=== PATIENT | male | born 1940 | race Caucasian/White ===

== ENCOUNTER 2018-05-13 17:05 | Inpatient (IN) ==
[2018-05-14] MEDS ORDERED: cloNIDine HCl 0.1 MG TABLET PO PRN (18:03)
[2018-05-14] MEDS: Ipratropium/Albuterol Neb 3 ML IH PRN (18:54)
[2018-05-14] MEDS: Acetaminophen 325 MG TABLET PO PRN (20:43)
[2018-05-14] MEDS: Mag Hydrox/Al Hydrox/Simeth 30 ML UDC PO PRN (20:45)
[2018-05-15] MEDS: Ipratropium/Albuterol Neb 3 ML IH PRN ×4 (01:12→23:13)
[2018-05-15] MEDS: *HR* Enoxaparin 40 MG/0.4 ML SYRINGE SQ SCH (06:08)
[2018-05-15 06:24] LABS: Basophils % 0.5 %; Eosinophils # 0.1 K/mcL (0.0-0.6); Hemoglobin 10.9 g/dL (12.9-16.9); INR 1.3; Immature Granulocytes % 0.3 % (0-4); Lymphocytes # 0.4 K/mcL (0.6-4.6); Lymphocytes % 10.1 %; Mean Corpuscular HGB Conc 32.1 g/dL (31.6-35.5); Mean Corpuscular Volume 93.7 fL (83.0-100.0); Mean Platelet Volume 9.1 fL (9.4-12.4); Monocytes # 0.4 K/mcL (0.0-1.3); Monocytes % 10.3 %; Platelet Count 123 K/mcL (140-400); Prothrombin Time 14.6 Seconds (9.4-12.1); Red Blood Count 3.63 M/mcL (4.19-5.50); Red Cell Distribution Width 13.6 % (11.5-14.5); Segmented Neutrophils % 75.8 %
[2018-05-15 06:26] LABS: Activated Partial Thrombo Time 37.7 Seconds (26.0-36.0)
[2018-05-15 08:32] LABS: Alanine Aminotransferase 15 Units/L (7-52); Albumin 3.6 g/dL (3.5-5.7); Albumin/Globulin Ratio 1.3 (1.1-2.2); Alkaline Phosphatase 55 Units/L (34-104); Aspartate Amino Transferase 27 Units/L (13-39); BUN/Creatinine Ratio 13 (6-26); Bilirubin,Total 0.7 mg/dL (0.3-1.0); Blood Urea Nitrogen 14 mg/dL (8-23); Calcium 9.1 mg/dL (8.6-10.3); Carbon Dioxide 24 mEq/L (23-29); Chloride 106 mEq/L (98-107); Globulin 2.8 g/dL (2.4-3.5); Glucose 101 mg/dL (70-105); Magnesium 2.1 mg/dL (1.6-2.6); Osmolality,Calculated 293 (280-300); Potassium 4.3 mEq/L (3.5-5.1); Sodium 141 mEq/L (136-145); Total Protein 6.4 g/dL (6.4-8.9); eGFR For Non-African Americans > 60 (> 60)
[2018-05-15] MEDS: Umeclidinium Bromide [Incruse Ellipta] 1 PUFF IH SCH (08:37)
[2018-05-15] MEDS ORDERED: Albuterol 2.5 MG/3 ML NEBULIZER ONE (08:49)
[2018-05-15] MEDS ORDERED: Albuterol 2.5 MG/3 ML NEBULIZER IH STA (08:56)
[2018-05-15] MEDS ORDERED: Albuterol 2.5 MG/3 ML NEBULIZER IH ONE (08:58)
[2018-05-15] MEDS: Acetaminophen 325 MG TABLET PO PRN (09:05)
[2018-05-15] MEDS: Metoprolol XL (24 HR) Succ 50 MG TAB.ER.24H PO SCH (09:06)
[2018-05-15] MEDS: Lisinopril 20 MG TABLET PO SCH (09:06)
[2018-05-15] MEDS: Aspirin Enteric Coated 325 MG Tablet PO SCH (09:06)
[2018-05-15] MEDS: Furosemide 40 MG TABLET PO SCH (09:06)
[2018-05-15] MEDS ORDERED: Furosemide 40 MG/4 ML VIAL IVP STA (09:47)
--- NOTE | 2018-05-15 12:07 | Internal Med History&Physical ---
Addendum entered and electronically signed by Kameron Ceja MD 05/15/18 13:40: I have personally performed a face to face evaluation on this patient. I have r eviewed and agree with the care plan. History and Exam by me shows: Reviewed history and physical with patient. Upon my arrival this morning, the patient sounded "junky" and sounded like he had heart failure. Laboratory evaluation and otherwise revealed that he has mild heart failure. He was given a dose of IV Lasix and is improved slightly as the day goes on. Physical therapy was held this morning and we will see if he is strong enough to go through some assessments, this afternoon. Patient has no complaint of chest discomfort, dyspnea, orthopnea, palpitations, nausea or vomiting, constipation or diarrhea, other changes in bowel habits, difficulty with urination, rash or itching, or other new complaints, except as mentioned above. Review of systems is otherwise negative. I discussed management of her care with nursing staff. Examination: (Except as mentioned above): General: In no apparent distress, alert and oriented 3. Head: Atraumatic and normocephalic. Eyes: Extraocular muscles are intact, pupils equal round and reactive to light and accommodation. Sclerae anicteric. Ears: External ears are normal to inspection and hearing is grossly normal. Nose: Patent without lesion noted. Mouth: No intraoral lesions seen. He is edentulous. Neck: Supple with trachea midline. There is asymmetric right thyromegaly or adenopathy and carotids are 2+ without bruit heard. I suspect a thyroid nodule about 2 x 3 cm. Respiratory: No use of accessory muscles. Lungs are surprisingly clear with mostly upper airway sounds but a few rales. Normal airflow. Cardiovascular: Regular rate and rhythm without murmur appreciated. Abdomen: Bowel sounds are normal. No hepatosplenomegaly masses or tenderness. Obese and therefore difficult to palpate deeply. Extremities: No cyanosis clubbing or edema. Neurological: A and O 3. He has mild hemiparesis with some speech difficulty which is minimal. Skin: Warm and non-diaphoretic with no lesions noted. Breasts, pelvic and rectal: Not examined. Original Note: Date of Encounter: 05/15/18 Time of Encounter: 11:47 Assessment and Plan (1) CVA (cerebral vascular accident) Current visit: Yes Status: Acute Status post left MCA infarct. PT, OT and ST to eval and treat. Will follow progress. No new neurological deficits at this time. Will assist with ADLs as needed. Qualifiers: CVA mechanism: thrombosis Precerebral and cerebral artery: middle cerebral artery Laterality of affected vessel: left Qualified Code(s): I63.312 - Cerebral infarction due to thrombosis of left middle cerebral artery (2) CHF (congestive heart failure) Current visit: Yes Status: Chronic BNP 384. IV Lasix times 1 dose now ordered will monitor for improvement. Qualifiers: Heart failure type: unspecified Heart failure chronicity: acute on chronic Qualified Code(s): I50.9 - Heart failure, unspecified (3) Essential hypertension Current visit: Yes Status: Acute Controlled with current medication. Monitor blood pressure. Internal Medicine - H&P: HPI Admitted From: Hospital to Hospital Transfer Plans for Post Hospital Care: Home History of present illness: Mr. Hoover is a 77 year old male new admit to rehab from [facility]. on 05/09, pt presented to ER after falling on the floor and having right sided weakness. In slurred speech. He was found to have had a Left MCA infarct. past medical hx includes: CAD, CHF status post pacemaker, COPD, hypertension and hyperlipidemia. pt has nonprod cough, denies fever, chills, NVD, SOB or chest pain. had a MBS and showed a mild oropharyngeal dysphagia. Past Med Surg Social Fam HX - Past Medical History Medical history: arthritis, atrial fibrillation, CHF, COPD, coronary artery disease, CVA, GERD, hyperlipidemia, hypertension, liver disease, myocardial infarction Additional medical history: Stroke-March 2018 Psychiatric history: no psych history - Past Surgical History Surgical History: orthopedic, other, pacemaker/AICD Additional surgical history: eye, egds,left arm - Social History Smoking Status: Former smoker Smokeless Tobacco Status: No Alcohol use: none Drug use: none Internal Medicine - H&P: Meds Aspirin Enteric Coated [Aspirin EC] 325 mg PO DAILY 09/26/16 [History] Atorvastatin [Lipitor] 10 mg PO HS 09/26/16 [History] Furosemide [Lasix] 60 mg PO DAILY 09/26/16 [History] Ipratropium/Albuterol Neb [Duoneb] 3 ml IH Q6HR PRN 09/26/16 [History] Potassium Chloride [Klor-Con Sprinkle] 20 meq PO DAILY 09/26/16 [History] Esomeprazole Magnesium [Nexium] 40 mg PO DAILY 12/11/16 [History] Lisinopril [Zestril] 40 mg PO DAILY 12/11/16 [History] Metoprolol XL (24 HR) Succ [Toprol XL] 50 mg PO DAILY 12/11/16 [History] Umeclidinium Bush [Incruse Ellipta] 1 puff IH DAILY 12/11/16 [History] Montelukast [Singulair] 10 mg PO DAILY 05/14/18 [History] Allergy/AdvReac Type Severity Reaction Status Date / Time cephalexin [From Keflex] Allergy Difficulty Verified 08/12/17 20:28 Breathing All Systems PM: A 10-system review of systems was performed and is negative for pertinent fi ndings except as documented above in the HPI. - Constitutional Constitutional: no chills, no fever(s), no night sweats - EENT Eyes: no change in vision, no discharge, no pain, no photophobia Ears: no ear discharge, no ear pain, no tinnitus Nose, mouth and throat: no dysphagia, no nasal discharge, no neck pain, no sore throat - Cardiovascular Cardiovascular ROS IM: no chest pain, no diaphoresis, no dyspnea, no lightheadedness, no palpitations, no syncope - Respiratory Respiratory: no cough, no dyspnea, no wheezing, no excessive phlegm production - Gastrointestinal Gastrointestinal: no abdominal pain, no diarrhea, no hematemesis, no hematochezia, no melena, no nausea, no vomiting - Musculoskeletal Musculoskeletal ROS IM: no numbness, no tingling - Integumentary Integumentary IM: no rash, no unusual bruising - Neurological Neurological ROS: no confusion, no convulsions, no focal weakness, no numbness, no tingling, no tremor(s) - Hematologic/Lymphatic Hematologic/Lymphatic: no easy bruising - Constitutional Vitals: Temp Pulse Resp BP Pulse Ox 99.0 F 69 14 126/68 4 05/15/18 08:00 05/15/18 08:00 05/15/18 08:00 05/15/18 08:00 05/15/18 08:00 General appearance: Present: A&O X 3, pleasant, no acute distress, answers questions appropriately Exam: slight dysarthria - Head Head exam: Present: atraumatic, normocephalic - Eye Eye exam: Present: PERRL, conjuntiva pink, sclera anicteric Pupils: Present: PERRL - Neck Neck exam general surgery: Present: supple, trachea midline. Absent: lymphadenopathy - Respiratory Respiratory exam: Present: rhonchi. Absent: accessory muscle use, rales, wheezes Additional comments: Rhonchi bilateral upper lobes - Cardiovascular Cardiovascular exam: Present: RRR, +S1, +S2. Absent: diastolic murmur, gallop, rubs, systolic murmur - GI/Abdominal GI/Abdominal exam: Present: normal bowel sounds, soft, no peritoneal signs. Absent: distended, tenderness - Extremities Exam Extremities exam: Present: warm, radial pulses palpable and symmetrical. Absent: calf tenderness, cyanotic, pedal edema Additional comments: Strength right upper extremity 4\\5 right lower extremity 3\\5 - Neurological Exam Neurological exam: Present: CN II-XII intact, oriented X3, no focal deficits. Absent: pronater drift, facial droop, speech deficit - Skin Skin exam: Present: dry, intact Internal Med - H&P Results - Labs CBC & Chem 7: 05/15/18 06:00 05/15/18 06:00 Labs: Short CBC 05/15/18 Range/Units 06:00 WBC 4.0 L (4.3-11.1) K/mcL Hgb 10.9 L D (12.9-16.9) g/dL Hct 34.0 L (37.5-50.1) % Plt Count 123 L (140-400) K/mcL Neutrophils # 3.0 (1.6-8.9) K/mcL BMP 05/15/18 06:00 Sodium 141 Potassium 4.3 Chloride 106 Carbon Dioxide 24 BUN 14 Creatinine 1.08 Glucose 101 Calcium 9.1 Liver Function 05/15/18 Range/Units 06:00 Total Bilirubin 0.7 (0.3-1.0) mg/dL AST 27 (13-39) Units/L ALT 15 (7-52) Units/L Alkaline Phosphatase 55 (34-104) Units/L Albumin 3.6 (3.5-5.7) g/dL - Impressions ITS Impressions Chest X-Ray 05/15/18 08:44 IMPRESSION: 1. Cardiomegaly with vascular congestion. 2. Increase in the interstitial lung markings involving the right lung. This may represent asymmetric edema or chronic inflammation. D/ / Van Montgomery MD / Van Montgomery MD Interpreting Provider: Van Montgomery MD
--- NOTE | 2018-05-15 12:53 | Electrocardiograph Report ---
[address] [place], [place] [address] Test Date: 2018-05-14 Pat Name: Kameron Hoover Department: 2001 Room: 105 Gender: M Embroiderer: Priyanka : 1940 Requested By: Kameron Ceja Order Number: [id number] Reading MD: Bradford Rush Measurements Intervals Solomon Rate: 69 P: CA: 0 QRS: 260 QRSD: 154 T: 67 QT: 449 QTc: 469 Interpretive Statements [employer]LECTRON[employer]EN[employer]IC[employer]EMAKER Electronically Signed On 05-15-2018 12:51:58 EST by Bradford Rush
[2018-05-15] MEDS: Albuterol 2.5 MG/3 ML NEBULIZER IH PRN (16:27)
[2018-05-15] MEDS: methylPREDNISolone 125 MG/2 ML VIAL IVP SCH ×2 (16:51→23:13)
[2018-05-16] MEDS: *HR* Enoxaparin 40 MG/0.4 ML SYRINGE SQ SCH (06:08)
[2018-05-16] MEDS: Ipratropium/Albuterol Neb 3 ML IH PRN ×4 (06:34→23:20)
[2018-05-16] MEDS: methylPREDNISolone 125 MG/2 ML VIAL IVP SCH ×3 (07:49→23:20)
[2018-05-16] MEDS: Lisinopril 20 MG TABLET PO SCH (07:50)
[2018-05-16] MEDS: Albuterol 2.5 MG/3 ML NEBULIZER IH PRN ×2 (07:50→18:45)
[2018-05-16] MEDS: Aspirin Enteric Coated 325 MG Tablet PO SCH (07:50)
[2018-05-16] MEDS: Metoprolol XL (24 HR) Succ 50 MG TAB.ER.24H PO SCH (07:50)
[2018-05-16] MEDS: Acetaminophen 325 MG TABLET PO PRN ×2 (07:50→23:19)
[2018-05-16] MEDS: Furosemide 40 MG TABLET PO SCH (07:51)
[2018-05-16] MEDS: Umeclidinium Bromide [Incruse Ellipta] 1 PUFF IH SCH (07:51)
--- NOTE | 2018-05-16 10:23 | Internal Med Progress Note ---
Addendum entered and electronically signed by Kameron Ceja MD 05/16/18 10:33: I have personally performed a face to face evaluation on this patient. I have r eviewed and agree with the care plan. History and Exam by me shows: Patient is feeling much better. He is anxious to begin therapies. He states that his breathing is back to its baseline. He denies abdominal pain but nursing notes that his right flank was bothering him, multiple times overnight. Discussed care with other providers and/or nursing. Patient has no complaint of chest discomfort, dyspnea, orthopnea, palpitations, nausea or vomiting, constipation or diarrhea, other changes in bowel habits, difficulty with urination, rash or itching, or other new complaints, except as mentioned above. Review of systems is otherwise negative. Examination: (Except as mentioned above): General: In no apparent distress. Alert and oriented 3. Nondiaphoretic. Head: Atraumatic and normocephalic. It should be noted that he has right eye exotropia and what seems to be mild exophthalmos, as per baseline but this was not reported in my history and physical addendum, yesterday. Respiratory: No use of accessory muscles. Lungs have diffuse sonorous rhonchi but no rales and no upper airway sounds, as yesterday. Airflow seems good. Cardiovascular: Regular rate and rhythm without murmur appreciated. Abdomen: Bowel sounds are normal. No hepatosplenomegaly mass or tenderness appreciated. Obese and therefore difficult to palpate deeply. Extremities: No cyanosis clubbing or edema. Skin: Warm and non-diaphoretic with no new lesions noted. The patient began steroids, last night. He notes that his primary care provider had him on 20 of prednisone, daily. We will give him stress dose until this evening and then switch him to oral prednisone for several days of burst therapy followed by a baseline of steroids. Also, we will monitor him for heart failure. Splint, I am not sure whether it was the steroid or his IV Lasix yesterday which helped him more. Original Note: Date of Encounter: 05/16/18 Time of Encounter: 10:21 - Assessment and plan (1) CVA (cerebral vascular accident) Current Visit: Yes Status: Acute Assessment and plan: No acute issues. Patient continues with slight right hemiparesis. Patient has had improvement of his risk for status and will attempt to persist pain in physical therapy today. We will continue with current plan of care Qualifiers: CVA mechanism: thrombosis Precerebral and cerebral artery: middle cerebral artery Laterality of affected vessel: left Qualified Code(s): I63.312 - Cerebral infarction due to thrombosis of left middle cerebral artery (2) CHF (congestive heart failure) Current Visit: Yes Status: Chronic Assessment and plan: No acute issues. Patient's pulmonary status has improved greatly since starting on cortical steroids and being diuresed with Lasix. Patient continues to have diminished breath sounds to bases with a slight expiratory wheeze her to upper ramirez. Patient denies any chest discomforts or palpitations. We will continue with current plan of care Qualifiers: Heart failure type: unspecified Heart failure chronicity: acute on chronic Qualified Code(s): I50.9 - Heart failure, unspecified (3) Essential hypertension Current Visit: Yes Status: Acute Assessment and plan: Vital signs are stable. We will continue with current medications. - Time Spent With Patient less than 15 minutes - Subjective Interval history: Patient appears relaxed and states that today his breathing status has improved. Patient reportedly had expiratory wheezes and pulmonary congestion yesterday. Was treated with cortical steroids and Lasix and today his lungs are much improved. Patient states that he feels he may be able to dissipate and physical therapy. Denies any other discomforts. Denies any chest palpitations - Constitutional Vitals: Temp Pulse Resp BP Pulse Ox 98.4 F 69 18 144/79 100 05/16/18 06:54 05/16/18 06:54 05/16/18 06:54 05/16/18 06:54 05/16/18 06:54 General appearance: Present: A&O X 3, pleasant, no acute distress, answers questions appropriately - Head Head exam: Present: atraumatic, normocephalic - Eye Eye exam: Present: PERRL, conjuntiva pink, sclera anicteric Pupils: Present: PERRL Additional comments: Disconjugate - Neck Neck exam general surgery: Present: supple, trachea midline. Absent: lymphadenopathy - Respiratory Respiratory exam: Present: CTAB, wheezes. Absent: accessory muscle use, rales, rhonchi Additional comments: Patient with slight expiratory wheeze heard to upper ramirez and diminished basilar ramirez. Respiratory effort appears relaxed. No productive cough noted. - Cardiovascular Cardiovascular exam: Present: RRR, +S1, +S2. Absent: diastolic murmur, gallop, rubs, systolic murmur - GI/Abdominal GI/Abdominal exam: Present: normal bowel sounds, soft, no peritoneal signs. Absent: distended, tenderness - Extremities Exam Extremities exam: Present: warm, radial pulses palpable and symmetrical. Absent: calf tenderness, cyanotic, pedal edema Additional comments: Slight pedal edema. Noted bilateral vascular Esparza - Neurological Exam Neurological exam: Present: CN II-XII intact, oriented X3. Absent: pronater drift, facial droop, speech deficit Additional comments: Patient with the conjugant gaze. Slight right hemiparesis with right extremities 4+/5 and left extremities at 5/5. - Skin Skin exam: Present: dry, intact Internal Medicine: Result - Labs CBC & Chem 7: 05/15/18 06:00 05/15/18 06:00 - ABG Interpretation ABG results: PT/INR, D-dimer PT 14.6 Seconds (9.4-12.1) H 05/15/18 06:00 Consult Discharge Plan - Plan Referrals: Kamla Garcia, HEALTH AND SAFETY DIRECTOR [Primary Care Provider] -
[2018-05-16 16:28] LABS: Bilirubin,Urine Negative (Negative); Blood,Urine Negative (Negative); Clarity,Urine Clear (Clear); Color,Urine Yellow (Yellow); Glucose,Urine (UA) Normal (Normal); Ketones,Urine Negative (Negative); Leukocyte Esterase,Urine Negative (Negative); Nitrite,Urine Negative (Negative); Protein,Urine Negative (Neg-Trace); Urobilinogen,Urine Normal (Normal)
[2018-05-17] MEDS: Ipratropium/Albuterol Neb 3 ML IH PRN ×3 (05:51→18:41)
[2018-05-17] MEDS: *HR* Enoxaparin 40 MG/0.4 ML SYRINGE SQ SCH (05:51)
[2018-05-17] MEDS: Albuterol 2.5 MG/3 ML NEBULIZER IH PRN (09:34)
[2018-05-17] MEDS: methylPREDNISolone 125 MG/2 ML VIAL IVP SCH (09:35)
[2018-05-17] MEDS: Lisinopril 20 MG TABLET PO SCH (09:35)
[2018-05-17] MEDS: predniSONE 20 MG TABLET PO SCH (09:36)
[2018-05-17] MEDS: Umeclidinium Bromide [Incruse Ellipta] 1 PUFF IH SCH (09:36)
[2018-05-17] MEDS: Aspirin Enteric Coated 325 MG Tablet PO SCH (09:36)
[2018-05-17] MEDS: Metoprolol XL (24 HR) Succ 50 MG TAB.ER.24H PO SCH (09:36)
[2018-05-17] MEDS: Furosemide 40 MG TABLET PO SCH (09:36)
--- NOTE | 2018-05-17 10:36 | Internal Med Progress Note ---
Addendum entered and electronically signed by Kameron Ceja MD 05/17/18 12:36: I have personally performed a face to face evaluation on this patient. I have r eviewed and agree with the care plan. History and Exam by me shows: Patient is feeling well. He denies dyspnea during therapy. However therapy and nursing staff know that he was markedly dyspneic with therapy? He has not moved his bowels. Feels like he will go today. I encouraged use of laxative if he does not move by this afternoon. Discussed care with other providers and/or nursing. Patient has no complaint of chest discomfort, dyspnea, orthopnea, palpitations, nausea or vomiting, constipation or diarrhea, other changes in bowel habits, difficulty with urination, rash or itching, or other new complaints, except as mentioned above. Review of systems is otherwise negative. Examination: (Except as mentioned above): General: In no apparent distress. Alert and oriented 3. Nondiaphoretic. Head: Atraumatic and normocephalic. Respiratory: No use of accessory muscles. Lungs are clear throughout except occasional sonorous rhonchi. Much improved over the last couple of days. Airflow is improving, as well. Cardiovascular: Regular rate and rhythm without murmur appreciated. Abdomen: Bowel sounds are normal. No hepatosplenomegaly mass or tenderness appreciated. Obese and therefore difficult to palpate deeply. Patient is examined upright in chair and this also limits exam. Extremities: No cyanosis clubbing or edema. Skin: Warm and non-diaphoretic with no new lesions noted. Original Note: Date of Encounter: 05/17/18 Time of Encounter: 10:34 - Assessment and plan (1) CVA (cerebral vascular accident) Current Visit: Yes Status: Inactive Assessment and plan: No acute issues. Patient continues with slight right hemiparesis. Patient has had improvement of his risk for status and will attempt to persist pain in physical therapy today. We will continue with current plan of care Qualifiers: CVA mechanism: thrombosis Precerebral and cerebral artery: middle cerebral artery Laterality of affected vessel: left Qualified Code(s): I63.312 - Cerebral infarction due to thrombosis of left middle cerebral artery (2) CHF (congestive heart failure) Current Visit: Yes Status: Chronic Assessment and plan: Patient noted to become very dyspneic during a assisted showering. Patient became very short of breath at 28/m with audible wheezes heard. After r ecovering patient appeared more relaxed with respiratory rate at 22/m. Continues to have slight expiratory wheeze her to upper ramirez and diminished bases. Denies productive cough. We will continue with current plan of care and therapy. Qualifiers: Heart failure type: unspecified Heart failure chronicity: acute on chronic Qualified Code(s): I50.9 - Heart failure, unspecified (3) Essential hypertension Current Visit: Yes Status: Acute Assessment and plan: Vital signs are stable. We will continue with current medications. - Time Spent With Patient less than 15 minutes - Subjective Interval history: Patient was evaluated after having a shower this morning and was noticeably short of breath. Patient states that he continues to have poor endurance and became very winded by the end of shower. Patient's oxygen saturation had dropped to the mid 80s, after being placed on oxygen he slowly recovered to greater than 90%. Patient's respiratory effort appeared slightly labile at 28/m and noted to have wheezes throughout upper ramirez. Patient denies any other chest discomforts or palpitations. Patient did complain of abdominal cramping last evening. Patient states he has not had a BM since his admission to this facility. - Constitutional Vitals: Temp Pulse Resp BP Pulse Ox 98.8 F 69 17 144/78 96 05/17/18 07:00 05/17/18 07:00 05/17/18 07:00 05/17/18 07:00 05/17/18 07:00 General appearance: Present: A&O X 3, pleasant, no acute distress, answers questions appropriately - Head Head exam: Present: atraumatic, normocephalic - Eye Eye exam: Present: PERRL, conjuntiva pink, sclera anicteric Pupils: Present: PERRL Additional comments: Disconjugate - Neck Neck exam general surgery: Present: supple, trachea midline. Absent: lymphadenopathy - Respiratory Respiratory exam: Present: CTAB, wheezes. Absent: accessory muscle use, rales, rhonchi Additional comments: After exertion patient noted to have audible wheezes throughout upper ramirez with a respiratory rate of 28. After resting and recovering patient continues to have slight expiratory wheeze for 2 upper ramirez and diminished bases. Respiratory effort appears more relaxed at 22/m. Patient denies productive cough. - Cardiovascular Cardiovascular exam: Present: RRR, +S1, +S2. Absent: diastolic murmur, gallop, rubs, systolic murmur - GI/Abdominal GI/Abdominal exam: Present: normal bowel sounds, soft, no peritoneal signs. Absent: distended, tenderness - Extremities Exam Extremities exam: Present: pedal edema, warm, radial pulses palpable and symmetrical. Absent: calf tenderness, cyanotic Additional comments: Slight edema to bilateral lower legs and feet. Noted bilateral leg vascular Esparza - Neurological Exam Neurological exam: Present: CN II-XII intact, oriented X3, no focal deficits. Absent: pronater drift, facial droop, speech deficit - Skin Skin exam: Present: dry, intact Internal Medicine: Result - Labs CBC & Chem 7: 05/15/18 06:00 05/15/18 06:00 Labs: Urine 05/16/18 Range/Units 16:15 Urine Color Yellow (Yellow) Urine Clarity Clear (Clear) Urine pH 6.0 (5.0-8.0) pH Units Ur Specific Haddock 1.020 (1.010-1.025) Urine Protein Negative (Neg-Trace) mg/dL Urine Glucose (UA) Normal (Normal) mg/dL - ABG Interpretation ABG results: PT/INR, D-dimer PT 14.6 Seconds (9.4-12.1) H 05/15/18 06:00 Consult Discharge Plan - Plan Referrals: Kamla Garcia CNP [Primary Care Provider] -
[2018-05-17] MEDS: Acetaminophen 325 MG TABLET PO PRN (21:18)
[2018-05-18] MEDS: Acetaminophen 325 MG TABLET PO PRN ×2 (03:28→11:52)
[2018-05-18] MEDS: *HR* Enoxaparin 40 MG/0.4 ML SYRINGE SQ SCH (05:31)
[2018-05-18] MEDS: Lisinopril 20 MG TABLET PO SCH (07:45)
[2018-05-18] MEDS: Metoprolol XL (24 HR) Succ 50 MG TAB.ER.24H PO SCH (07:45)
[2018-05-18] MEDS: predniSONE 20 MG TABLET PO SCH (07:45)
[2018-05-18] MEDS: Furosemide 40 MG TABLET PO SCH (07:45)
[2018-05-18] MEDS: Aspirin Enteric Coated 325 MG Tablet PO SCH (07:46)
[2018-05-18] MEDS: Umeclidinium Bromide [Incruse Ellipta] 1 PUFF IH SCH (07:46)
[2018-05-18] MEDS: Ipratropium/Albuterol Neb 3 ML IH PRN ×2 (08:26→15:15)
--- NOTE | 2018-05-18 11:10 | Internal Med Progress Note ---
Date of Encounter: 05/18/18 Time of Encounter: 11:30 - Subjective Interval history: - Assessment and plan (1) CVA (cerebral vascular accident) Current Visit: Yes Status: Inactive Assessment and plan: No acute issues. Patient continues with slight right hemiparesis. He has still some mild garble speech and he has difficulty occas with secretions. Patient has been doing PT. We will continue with current plan of care Qualifiers: CVA mechanism: thrombosis Precerebral and cerebral artery: middle cerebral artery Laterality of affected vessel: left Qualified Code(s): I63.312 - Cerebral infarction due to thrombosis of left middle cerebral artery (2) CHF (congestive heart failure) Current Visit: Yes Status: Chronic Assessment and plan: Patient noted to become very dyspneic during activities since came here. cough somewhat more productive. Will get lasix today. Will do daily wt and I/O check electrolytes he has hx CAD and pacemaker. He has ekg here from May 14. . We will continue with current plan of care and therapy. Qualifiers: Heart failure type: unspecified Heart failure chronicity: acute on chronic Qualified Code(s): I50.9 - Heart failure, unspecified (3) Essential hypertension Current Visit: Yes Status: Acute Assessment and plan: Vital signs are stable. BP systolic low at times pulse 60s to 70s will decrease lisinopril from 40 to 20 mg for now. continue metoprolol. he has prn clonidine We will continue with current medications. 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 He likely has element of pulmonary fibrosis. will get chest xray will continue duonebs will give prednisone oral - will need to taper as soon as able he is on 2 to 4 L NC oxygen will try BiPap for symptom relief or sleep discussed with respiratory (5) poor po intake risk for low albumen poor appetite will add megace he is at risk for malnutrition with sob and decreased appetite (6) anxiety panic attacks pt reports he has had these, priti at night chronic but worse now (7 ) constipation pt has no bm in 7 days he says he wants enema will place order will dc bentyl - Time Spent With Patient less than 15 minutes - Subjective Interval history: patient reports for over a week he has had a 'rattle and cough' Patient did complain of abdominal cramping last evening. Patient states he has not had a BM since his admission to this facility. he would like an enema he was anxious all day he says - Constitutional Vitals: Temp Pulse Resp BP Pulse Ox 98.8 F 69 17 144/78 96 05/17/18 07:00 05/17/18 07:00 05/17/18 07:00 05/17/18 07:00 05/17/18 07:00 General appearance: Present: A&O X 3, pleasant, no acute distress, answers questions appropriately - Eye Additional comments: Disconjugate gaze - chronic - Neck Neck exam general surgery: Present: supple, trachea midline. Absent: lymphadenopathy - Respiratory Respiratory exam: Present: CTAB, wheezes. Absent: accessory muscle use, rales, rhonchi Additional comments: velcro crackles bilateral - Cardiovascular Cardiovascular exam: Present: RRR, +S1, +S2. distant tones - GI/Abdominal GI/Abdominal exam: Present: normal bowel sounds, soft, no peritoneal signs. Absent: distended, tenderness - Extremities Exam Extremities exam: Present: pedal edema, warm, radial pulses palpable and symmetrical. Additional comments: Slight edema to bilateral lower legs and feet. - Neurological Exam Neurological exam: Present: CN II-XII intact, oriented X3, no focal deficits. Absent: pronater drift, facial droop, speech deficit - Skin Skin exam: Present: thin dry skin excoriations ankles and scale and erythema some lichinification - Constitutional Vitals: Temp Pulse Resp BP Pulse Ox 97.7 F 70 16 118/74 99 05/18/18 09:07 05/18/18 09:07 05/18/18 09:07 05/18/18 09:07 05/18/18 09:07 General appearance: Present: A&O X 3, pleasant, no acute distress, answers questions appropriately Internal Medicine: Result - Labs CBC & Chem 7: 05/19/18 08:05 05/19/18 08:05 - ABG Interpretation ABG results: PT/INR, D-dimer PT 14.6 Seconds (9.4-12.1) H 05/15/18 06:00 Consult Discharge Plan - Plan Referrals: Kamla Garcia CNP [Primary Care Provider] -
[2018-05-18] MEDS: Albuterol 2.5 MG/3 ML NEBULIZER IH PRN ×2 (11:53→20:51)
[2018-05-18] MEDS ORDERED: Furosemide 20 MG/2 ML VIAL IVP ONE ×2 (15:47→23:26)
[2018-05-18] MEDS: Ipratropium/Albuterol Neb 3 ML IH SCH (18:10)
[2018-05-19] MEDS: Albuterol 2.5 MG/3 ML NEBULIZER IH PRN ×2 (00:31→06:10)
[2018-05-19] MEDS: Ipratropium/Albuterol Neb 3 ML IH SCH ×3 (02:47→16:57)
[2018-05-19] MEDS ORDERED: Furosemide 20 MG/2 ML VIAL IVP ONE (03:21)
[2018-05-19] MEDS: *HR* Enoxaparin 40 MG/0.4 ML SYRINGE SQ SCH (05:58)
[2018-05-19] MEDS ORDERED: methylPREDNISolone 125 MG/2 ML VIAL IVP ONE (06:19)
[2018-05-19 08:25] LABS: Hematocrit 31.9 % (37.5-50.1); Hemoglobin 10.4 g/dL (12.9-16.9); Immature Granulocytes % 0.4 % (0-4); Lymphocytes # 0.3 K/mcL (0.6-4.6); Lymphocytes % 4.9 %; Mean Corpuscular HGB Conc 32.6 g/dL (31.6-35.5); Mean Corpuscular Hemoglobin 30.1 pg (28.0-33.3); Mean Corpuscular Volume 92.5 fL (83.0-100.0); Mean Platelet Volume 9.3 fL (9.4-12.4); Monocytes # 0.4 K/mcL (0.0-1.3); Monocytes % 6.3 %; Neutrophils # 4.9 K/mcL (1.6-8.9); Platelet Count 158 K/mcL (140-400); Red Blood Count 3.45 M/mcL (4.19-5.50); Red Cell Distribution Width 13.9 % (11.5-14.5); Segmented Neutrophils % 88.4 %
[2018-05-19 08:36] LABS: Calcium 8.7 mg/dL (8.6-10.3); Potassium 3.5 mEq/L (3.5-5.1)
[2018-05-19 08:41] LABS: ABG Base Excess 3 mEq/L (-2 to 3); ABG HCO3 28 mEq/L (21-27); ABG Oxygen Saturation 94 % (95-98); ABG PCO2 43 mmHg (35-45); ABG PH 7.42 pH Units (7.32-7.45); ABG PO2 71 mmHg (85-104); ABG TCO2 29 mEq/L (20-26)
[2018-05-19] MEDS: Furosemide 40 MG TABLET PO SCH (09:06)
[2018-05-19] MEDS: Aspirin Enteric Coated 325 MG Tablet PO SCH (09:06)
[2018-05-19] MEDS: Umeclidinium Bromide [Incruse Ellipta] 1 PUFF IH SCH (09:07)
[2018-05-19] MEDS: predniSONE 20 MG TABLET PO SCH (09:07)
[2018-05-19] MEDS: Lisinopril 20 MG TABLET PO SCH (09:07)
[2018-05-19] MEDS: Metoprolol XL (24 HR) Succ 50 MG TAB.ER.24H PO SCH (09:07)
[2018-05-19 10:02] LABS: Bilirubin,Urine Negative (Negative); Blood,Urine Negative (Negative); Clarity,Urine Clear (Clear); Color,Urine Yellow (Yellow); Glucose,Urine (UA) Normal (Normal); Ketones,Urine Negative (Negative); Leukocyte Esterase,Urine Negative (Negative); Nitrite,Urine Negative (Negative); Protein,Urine Negative (Neg-Trace); Specific Gravity,Urine 1.015 (1.010-1.025); Urobilinogen,Urine Normal (Normal)
[2018-05-19] MEDS ORDERED: Glycopyrrolate 1 MG TABLET PO ONE (11:09)
[2018-05-19] MEDS ORDERED: Nitroglycerin 0.4 MG TAB.SUBL SL PRN (12:24)
[2018-05-19] MEDS: Hyoscyamine SL 0.125 MG TAB.SUBL SL PRN ×2 (12:43→20:57)
[2018-05-19] MEDS: levoFLOXacin 500 MG TABLET PO SCH (12:43)
[2018-05-19] MEDS: Nystatin SUSP 5 ML UD.LIQ PO SCH ×4 (12:43→20:51)
--- NOTE | 2018-05-19 13:12 | Internal Med Progress Note ---
Date of Encounter: 05/19/18 Time of Encounter: 13:15 - Subjective Interval history: - Assessment and plan (1) CVA (cerebral vascular accident) Current Visit: Yes Status: Inactive Assessment and plan: No acute issues. Patient continues with slight right hemiparesis. He has still some mild garble speech and he has difficulty occas with secretions. Patient has been doing PT. We will continue with current plan of care Qualifiers: CVA mechanism: thrombosis Precerebral and cerebral artery: middle cerebral artery Laterality of affected vessel: left Qualified Code(s): I63.312 - Cerebral infarction due to thrombosis of left middle cerebral artery (2) CHF (congestive heart failure) Current Visit: Yes Status: Chronic Assessment and plan: Patient noted to become very dyspneic during activities since came here. cough somewhat more productive. Will get lasix today. Will do daily wt and I/O check electrolytes he has hx CAD and pacemaker. He has ekg here from May 14. . We will continue with current plan of care and therapy. Qualifiers: Heart failure type: unspecified Heart failure chronicity: acute on chronic Qualified Code(s): I50.9 - Heart failure, unspecified (3) Essential hypertension Current Visit: Yes Status: Acute Assessment and plan: Vital signs are stable. BP systolic low at times pulse 60s to 70s will decrease lisinopril from 40 to 20 mg for now. continue metoprolol. he has prn clonidine We will continue with current medications. 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 He likely has element of pulmonary fibrosis. no change to chest xray sputum discolored and dark will add oral Cefdiner will continue duonebs will give prednisone oral - will need to taper as soon as able he is on 2 to 4 L NC oxygen will try BiPap for symptom relief or sleep discussed with respiratory (5) poor po intake risk for low albumen poor appetite will add megace seemed to have trouble with meats will change to [facility] alter diet and add ensure he is at risk for malnutrition with sob and decreased appetite has oral thrush will add nystatin this may help appetite (6) anxiety panic attacks pt reports he has had these, priti at night chronic but worse now says he feels sad but denies suicidal ideations will add low dose zoloft and night time low dose remeron he did get haldol last night will keep low dose as prn but only use if severely agitated (7 ) constipation pt has no bm in 7 days he says he wants enema will place order did dc bentyl - Subjective Interval history: pt was agitated last night and states had panic attack. says he has had them since of his more now he had more sob but his sats stayed good on 4 L nc oxygen not changed he was placed on bipap that helped. given low dose haldol that helped abd done looked ok he was given lasix and diuresed this did not really change his joshuachi patient reports for over a week he has had a 'rattle and cough' cough he says worse today states he noted some dark yellow color today chest xray did not show infiltrate . Patient states he has not had a BM since his admission to this facility. he would like an enema - Constitutional General appearance: Present: A&O X 3, pleasant, no acute distress, answers questions appropriately he has fair memory and speech more clear today he has flat affect parkinsons type - Eye Disconjugate gaze - chronic - Neck Neck exam general surgery: Present: supple, trachea midline. Absent: lymphadenopathy - Respiratory Respiratory exam: Present: CTAB, wheezes. Absent: accessory muscle use, rales, rhonchi Additional comments: velcro crackles bilateral - Cardiovascular Cardiovascular exam: Present: RRR, +S1, +S2. distant tones - GI/Abdominal GI/Abdominal exam: Present: normal bowel sounds, soft, no peritoneal signs. Absent: distended, tenderness - Extremities Exam Extremities exam: Present: pedal edema resolved warm, radial pulses palpable and symmetrical. Additional comments: Slight edema to bilateral lower legs and feet. - Neurological Exam Neurological exam: mild weakness some slight garbled speech clearer today has bilat faint cogwheel rigid tremor UE - Skin Skin exam: Present: thin dry skin excoriations ankles and scale and erythema plaques some lichinification - Constitutional Vitals: Temp Pulse Resp BP Pulse Ox 98.8 F 69 16 116/71 96 05/19/18 09:00 05/19/18 09:00 05/19/18 09:00 05/19/18 09:00 05/19/18 09:00 General appearance: Present: A&O X 3, pleasant, no acute distress, answers questions appropriately Internal Medicine: Result - Labs CBC & Chem 7: 05/19/18 08:05 05/19/18 08:05 Labs: Short CBC 05/19/18 Range/Units 08:05 WBC 5.5 (4.3-11.1) K/mcL Hgb 10.4 L (12.9-16.9) g/dL Hct 31.9 L (37.5-50.1) % Plt Count 158 (140-400) K/mcL Neutrophils # 4.9 (1.6-8.9) K/mcL BMP 05/19/18 08:05 Sodium 138 Potassium 3.5 Chloride 101 Carbon Dioxide 28 BUN 40 H Creatinine 1.42 H Glucose 90 Calcium 8.7 Urine 05/19/18 Range/Units 09:35 Urine Color Yellow (Yellow) Urine Clarity Clear (Clear) Urine pH 6.0 (5.0-8.0) pH Units Ur Specific [place] 1.015 (1.010-1.025) Urine Protein Negative (Neg-Trace) mg/dL Urine Glucose (UA) Normal (Normal) mg/dL - ABG Interpretation ABG results: ABG ABG pH 7.42 pH Units (7.32-7.45) 05/19/18 08:39 ABG pCO2 43 mmHg (35-45) 05/19/18 08:39 ABG pO2 71 mmHg (85-104) L 05/19/18 08:39 ABG O2 Saturation 94 % (95-98) L 05/19/18 08:39 PT/INR, D-dimer PT 14.6 Seconds (9.4-12.1) H 05/15/18 06:00 - Impressions Impressions Chest X-Ray 05/19/18 06:00 IMPRESSION: Lung findings consistent with COPD. No definite acute disease. D/ / Karan Gonzalez MD / Karan Gonzalez MD Interpreting Provider: Karan Gonzalez MD Consult Discharge Plan - Plan Referrals: Kamla Garcia CNP [Primary Care Provider] -
[2018-05-19] MEDS: Megestrol Acetate 400 MG/10 ML UDC PO SCH (14:10)
[2018-05-19] MEDS ORDERED: predniSONE 20 MG TABLET PO SCH (17:00)
[2018-05-19] MEDS: Mag Hydrox/Al Hydrox/Simeth 30 ML UDC PO PRN (17:10)
[2018-05-19] MEDS: traMADol 50 MG TABLET PO PRN ×2 (17:10→20:57)
[2018-05-19] MEDS: Mirtazapine 15 MG TABLET PO SCH (20:43)
[2018-05-20] MEDS: Ipratropium/Albuterol Neb 3 ML IH SCH ×3 (02:01→17:54)
[2018-05-20 06:39] LABS: Hematocrit 30.4 % (37.5-50.1); Hemoglobin 9.9 g/dL (12.9-16.9); Immature Granulocytes % 0.2 % (0-4); Lymphocytes # 0.2 K/mcL (0.6-4.6); Lymphocytes % 5.8 %; Mean Corpuscular HGB Conc 32.6 g/dL (31.6-35.5); Mean Corpuscular Hemoglobin 30.3 pg (28.0-33.3); Mean Platelet Volume 9.6 fL (9.4-12.4); Monocytes # 0.3 K/mcL (0.0-1.3); Monocytes % 6.5 %; Neutrophils # 3.6 K/mcL (1.6-8.9); Platelet Count 152 K/mcL (140-400); Red Blood Count 3.27 M/mcL (4.19-5.50); Red Cell Distribution Width 13.7 % (11.5-14.5); Segmented Neutrophils % 87.5 %
[2018-05-20 06:49] LABS: BUN/Creatinine Ratio 32 (6-26); Blood Urea Nitrogen 42 mg/dL (8-23); Carbon Dioxide 32 mEq/L (23-29); Chloride 100 mEq/L (98-107); Glucose 107 mg/dL (70-105); Osmolality,Calculated 299 (280-300); Potassium 3.9 mEq/L (3.5-5.1); Sodium 139 mEq/L (136-145); eGFR For Non-African Americans 53 (> 60)
[2018-05-20] MEDS: Metoprolol XL (24 HR) Succ 50 MG TAB.ER.24H PO SCH (08:25)
[2018-05-20] MEDS: Furosemide 40 MG TABLET PO SCH (08:26)
[2018-05-20] MEDS: levoFLOXacin 500 MG TABLET PO SCH (08:27)
[2018-05-20] MEDS: Lisinopril 20 MG TABLET PO SCH (08:27)
[2018-05-20] MEDS: Aspirin Enteric Coated 325 MG Tablet PO SCH (08:28)
[2018-05-20] MEDS: Umeclidinium Bromide [Incruse Ellipta] 1 PUFF IH SCH (08:28)
[2018-05-20] MEDS: Megestrol Acetate 400 MG/10 ML UDC PO SCH (08:28)
[2018-05-20] MEDS: Nystatin SUSP 5 ML UD.LIQ PO SCH ×4 (08:30→19:55)
[2018-05-20] MEDS: predniSONE 20 MG TABLET PO SCH (10:37)
[2018-05-20] MEDS ORDERED: hydrOXYzine pamoate 25 MG CAPSULE PO PRN (11:18)
--- NOTE | 2018-05-20 13:40 | Internal Med Progress Note ---
Addendum entered and electronically signed by Kameron Ceja MD 05/21/18 14:53: I have personally performed a face to face evaluation on this patient. I have r eviewed and agree with the care plan. History and Exam by me shows: For schedule and/or computer reasons, this note is a late entry. Patient was seen on the date of the initial note. Therapy is signing off because patient is too dyspneic and has had significant hypoxemia, ever since his arrival. He is very motivated to try with therapy but any exertion makes him short of breath, decreased ability to proceed, and inability to participate. We will try to get him transferred back to [facility], from where he came. Discussed care with other providers and/or nursing. Patient has no complaint of chest discomfort, dyspnea, orthopnea, palpitations, nausea or vomiting, constipation or diarrhea, other changes in bowel habits, difficulty with urination, rash or itching, or other new complaints, except as mentioned above. Review of systems is otherwise negative. Examination: (Except as mentioned above): General: In no apparent distress. Alert and oriented 3. Nondiaphoretic. Head: Atraumatic and normocephalic. Respiratory: No use of accessory muscles. Lungs are with sonorous rhonchi, throughout. Normal airflow - limited but at his baseline, while here. Cardiovascular: Regular rate and rhythm without murmur appreciated. Abdomen: Bowel sounds are normal. No hepatosplenomegaly mass or tenderness appreciated. Obese and therefore difficult to palpate deeply. Patient is examined upright in chair and this also limits exam. Extremities: No cyanosis clubbing or change in edema. Skin: Warm and non-diaphoretic with no new lesions noted. Plan discharge to [facility], if transfer can be arranged. Original Note: Date of Encounter: 05/20/18 Time of Encounter: 13:36 - Assessment and plan (1) CVA (cerebral vascular accident) Current Visit: Yes Status: Inactive Assessment and plan: Continue PT, OT and speech therapy. Will follow for progress. Qualifiers: CVA mechanism: thrombosis Precerebral and cerebral artery: middle cerebral artery Laterality of affected vessel: left Qualified Code(s): I63.312 - Cerebral infarction due to thrombosis of left middle cerebral artery (2) CHF (congestive heart failure) Current Visit: Yes Status: Chronic Assessment and plan: Continue Lasix. Will monitor. Qualifiers: Heart failure type: unspecified Heart failure chronicity: acute on chronic Qualified Code(s): I50.9 - Heart failure, unspecified (3) Essential hypertension Current Visit: Yes Status: Acute Assessment and plan: Controlled with current medication. Monitor blood pressure. (4) COPD exacerbation Current Visit: Yes Status: Acute Assessment and plan: Continue BiPAP and steroids. Continue to monitor oxygen. - Time Spent With Patient 25 - 35 minutes - Subjective Interval history: Having difficulty participating in therapy due to respiratory status. Patient is very winded quickly and oxygen saturation drops too low 80s with any type of movement or activity. Patient is currently on BiPAP and maintaining oxygen saturation. started on steroids, continues to be on lasix. denies fever, chills, NVD or chest pain. plan to discuss case with [facility] to transfer. - Constitutional Vitals: Temp Pulse Resp BP Pulse Ox 97.7 F 69 20 151/78 99 05/20/18 06:41 05/20/18 06:41 05/20/18 06:41 05/20/18 06:41 05/20/18 09:25 General appearance: Present: A&O X 3, pleasant, no acute distress, answers questions appropriately - Head Head exam: Present: atraumatic, normocephalic - Eye Eye exam: Present: PERRL, conjuntiva pink, sclera anicteric Pupils: Present: PERRL - Neck Neck exam general surgery: Present: supple, trachea midline. Absent: lymphadenopathy - Respiratory Respiratory exam: Present: rales. Absent: accessory muscle use, rhonchi, wheezes Additional comments: Crackles Scattered throughout, worse than right side. Fine expiratory wheezes bilateral upper lobes - Cardiovascular Cardiovascular exam: Present: RRR, +S1, +S2. Absent: diastolic murmur, gallop, rubs, systolic murmur - GI/Abdominal GI/Abdominal exam: Present: normal bowel sounds, soft, no peritoneal signs. Absent: distended, tenderness - Extremities Exam Extremities exam: Present: warm, radial pulses palpable and symmetrical. Absent: calf tenderness, cyanotic, pedal edema - Neurological Exam Neurological exam: Present: CN II-XII intact, oriented X3, no focal deficits. Absent: pronater drift, facial droop, speech deficit - Skin Skin exam: Present: dry, intact Internal Medicine: Result - Labs CBC & Chem 7: 05/20/18 06:16 05/20/18 06:16 Labs: Short CBC 05/20/18 Range/Units 06:16 WBC 4.1 L (4.3-11.1) K/mcL Hgb 9.9 L (12.9-16.9) g/dL Hct 30.4 L (37.5-50.1) % Plt Count 152 (140-400) K/mcL Neutrophils # 3.6 (1.6-8.9) K/mcL BMP 05/20/18 06:16 Sodium 139 Potassium 3.9 Chloride 100 Carbon Dioxide 32 H BUN 42 H Creatinine 1.31 H Glucose 107 H Calcium 9.0 - ABG Interpretation ABG results: ABG ABG pH 7.42 pH Units (7.32-7.45) 05/19/18 08:39 ABG pCO2 43 mmHg (35-45) 05/19/18 08:39 ABG pO2 71 mmHg (85-104) L 05/19/18 08:39 ABG O2 Saturation 94 % (95-98) L 05/19/18 08:39 PT/INR, D-dimer PT 14.6 Seconds (9.4-12.1) H 05/15/18 06:00 Consult Discharge Plan - Plan Referrals: Kamla Garcia CNP [Primary Care Provider] -
--- NOTE | 2018-05-20 14:12 | Discharge Summary ---
Addendum entered and electronically signed by Kameron Ceja MD 05/21/18 14:57: I have personally performed a face to face evaluation on this patient. I have r eviewed and agree with the care plan. History and Exam by me shows: Please see my progress note from 05/21. Original Note: Orders not resulted at time of discharge: Pending orders 06/17/18 04:00 BMP [Basic Metabolic Panel] MO CBC [Complete Blood Count] [HEME] MO 05/27/18 04:00 BMP [Basic Metabolic Panel] MO CBC [Complete Blood Count] [HEME] MO 06/03/18 04:00 BMP [Basic Metabolic Panel] MO CBC [Complete Blood Count] [HEME] MO 06/10/18 04:00 BMP [Basic Metabolic Panel] MO CBC [Complete Blood Count] [HEME] MO Date of Encounter: 05/20/18 Time of Encounter: 14:09 - Discharge Diagnosis (1) CVA (cerebral vascular accident) Priority: Primary Status: Inactive Comments: no new neuro deficits, f/u with neurologist as scheduled. Qualifiers: CVA mechanism: thrombosis Precerebral and cerebral artery: middle cerebral artery Laterality of affected vessel: left Qualified Code(s): I63.312 - Cerebral infarction due to thrombosis of left middle cerebral artery (2) CHF (congestive heart failure) Priority: Secondary Status: Chronic Comments: continue lasix Qualifiers: Heart failure type: unspecified Heart failure chronicity: acute on chronic Qualified Code(s): I50.9 - Heart failure, unspecified (3) Essential hypertension Priority: Secondary Status: Acute Comments: controlled with current meds. monitor BP (4) COPD exacerbation Priority: Primary Status: Acute Comments: continue BIPAP and inhaled meds. continue steroids. monitor vitals. transferring to [facility]. Hospital course: Mr. Hoover is a 77 year old male transferring to [facility] due to declining respiratory status due to COPD. continues to have O2 sats drops to 80% with any type of activity. unable to participate in therapy. Discharge discussed with: patient, nurse - Time Spent with Patient Total time spent providing and/or coordinating discharge services: Greater than 30 minutes - Discharge Medications Home Medications: Aspirin Enteric Coated [Aspirin EC] 325 mg PO DAILY 09/26/16 [History] Atorvastatin [Lipitor] 10 mg PO HS 09/26/16 [History] Furosemide [Lasix] 60 mg PO DAILY 09/26/16 [History] Ipratropium/Albuterol Neb [Duoneb] 3 ml IH Q6HR PRN 09/26/16 [History] Potassium Chloride [Klor-Con Sprinkle] 20 meq PO DAILY 09/26/16 [History] Esomeprazole Magnesium [Nexium] 40 mg PO DAILY 12/11/16 [History] Lisinopril [Zestril] 40 mg PO DAILY 12/11/16 [History] Metoprolol XL (24 HR) Succ [Toprol XL] 50 mg PO DAILY 12/11/16 [History] Umeclidinium [place] [Incruse Ellipta] 1 puff IH DAILY 12/11/16 [History] Montelukast [Singulair] 10 mg PO DAILY 05/14/18 [History] Allergies/Adverse Reactions: Allergy/AdvReac Type Severity Reaction Status Date / Time cephalexin [From Keflex] Allergy Difficulty Verified 08/12/17 20:28 Breathing Date of admission: 05/14/18 16:55 Primary care physician: Kamla Garcia CNP Consults: 05/14/18 17:48 Consult to Occupational Therapy [CONS] Routine Comment: Evaluate, develop and implement POC Reason for Consult: s/p cva Does patient have active BEDREST order?: No Is patient medically & hemodynamically stable?: Yes Consult to Physical Medicine/Rehab [CONS] Routine Reason for Consult: Please evaluate and manage therapies' guidelines and recommend pathway to reconditioning. Call Completed: Yes Consult to Physical Therapy [CONS] Routine Comment: Evaluate, develop and implement POC Reason for Consult: s/p stroke Does patient have active BEDREST order?: No Is patient medically & hemodynamically stable?: Yes Consult to Recreational Therapy [CONS] Routine Comment: Consult to Speech Therapy [CONS] Routine Comment: Evaluate, develop and implement POC Reason for Consult: c/p cva Call Completed: Yes 05/14/18 17:49 Consult to [employer] [CONS] Routine Reason for SW Consult: discharge planning Discharging clinician: Kameron Ceja Anticipated date of discharge: 05/20/18 - Constitutional Vitals: see exam dated this date in progress note.. Temp Pulse Resp BP Pulse Ox 97.7 F 69 20 151/78 99 05/20/18 06:41 05/20/18 06:41 05/20/18 06:41 05/20/18 06:41 05/20/18 09:25 General appearance: Present: A&O X 3, pleasant, no acute distress, answers questions appropriately - Patient Status Disposition: Transfer Short-Term Hosp Condition: Fair Functional capacity at discharge: wheelchair bound Overall status at discharge: patient is not back to baseline - Discharge Instructions Follow Up With: Kamla Garcia [employer] [Primary Care Provider] - - Diet and Activity Activity: wear oxygen at all times
[2018-05-20] MEDS ORDERED: methylPREDNISolone 125 MG/2 ML VIAL IVP ONE (18:10)
[2018-05-20] MEDS ORDERED: Ipratropium/Albuterol Neb 3 ML IH SCH (18:15)
[2018-05-20 18:41] LABS: Hematocrit 35.1 % (37.5-50.1); Hemoglobin 11.2 g/dL (12.9-16.9); Mean Corpuscular HGB Conc 31.9 g/dL (31.6-35.5); Mean Corpuscular Volume 94.1 fL (83.0-100.0); Mean Platelet Volume 9.4 fL (9.4-12.4); Platelet Count 182 K/mcL (140-400); Red Blood Count 3.73 M/mcL (4.19-5.50); Red Cell Distribution Width 13.8 % (11.5-14.5); Segmented Neutrophils % 92.6 %
[2018-05-20 18:42] LABS: Immature Granulocytes % 0.5 % (0-4); Lymphocytes # 0.2 K/mcL (0.6-4.6); Lymphocytes % 3.2 %; Monocytes # 0.2 K/mcL (0.0-1.3); Monocytes % 3.7 %; Neutrophils # 5.5 K/mcL (1.6-8.9)
[2018-05-20 19:00] LABS: Troponin I 0.04 ng/mL (< 0.04)
[2018-05-20 19:07] LABS: VBG HCO3 30 mEq/L (21-27); VBG PCO2 59 mmHg (41-51); VBG PO2 31 mmHg (25-50)
[2018-05-20] MEDS: Albuterol 2.5 MG/3 ML NEBULIZER IH SCH ×3 (19:13→19:16)
[2018-05-20 19:21] LABS: Albumin 3.8 g/dL (3.5-5.7); Albumin/Globulin Ratio 1.2 (1.1-2.2); Bilirubin,Total 0.7 mg/dL (0.3-1.0); Calcium 9.3 mg/dL (8.6-10.3); Globulin 3.2 g/dL (2.4-3.5); Potassium 4.9 mEq/L (3.5-5.1)
[2018-05-20] MEDS: Mirtazapine 15 MG TABLET PO SCH (19:55)
[2018-05-20] MEDS ORDERED: Albuterol 2.5 MG/3 ML NEBULIZER IH PRN (22:40)
--- NOTE | 2018-05-20 22:41 | Emergency Department Note ---
Disposition Clinical Impression: COPD exacerbation Disposition: Admitted As Inpatient Condition: Fair Time of Disposition: 22:48 General Adult HPI - History of Present Illness HPI Narrative: I was called to see Mr. Hoover by his attending physician here at [facility]. He has been here for about a week status post stroke discharged from [facility]. Evidently Mr. Hoover is unable to purchase a patent in much physical therapy rehabilitation because she is oxygen saturations keep dropping and he becomes short of breath. His attending physician has arranged for transfer back to [facility] to the intensive care unit at [facility]. The attending physician in the ICU at [facility] has asked for an additional IV to be started and for Mr. Hoover to be intubated. Per the nurse taking care of him on the floor his CODE STATUS is full. - Related Data Home Medications Medication Instructions Recorded Confirmed Aspirin Enteric Coated [Aspirin EC] 325 mg PO DAILY 09/26/16 05/14/18 Atorvastatin [Lipitor] 10 mg PO HS 09/26/16 05/14/18 Furosemide [Lasix] 60 mg PO DAILY 09/26/16 05/14/18 Ipratropium/Albuterol Neb [Duoneb] 3 ml IH Q6HR PRN 09/26/16 05/14/18 Potassium Chloride [Klor-Con 20 meq PO DAILY 09/26/16 10/16/17 Sprinkle] Esomeprazole Magnesium [Nexium] 40 mg PO DAILY 12/11/16 05/14/18 Lisinopril [Zestril] 40 mg PO DAILY 12/11/16 05/14/18 Metoprolol XL (24 HR) Succ [Toprol 50 mg PO DAILY 12/11/16 05/14/18 XL] Umeclidinium [place] [Incruse 1 puff IH DAILY 12/11/16 05/14/18 Ellipta] Montelukast [Singulair] 10 mg PO DAILY 05/14/18 05/14/18 Allergies Allergy/AdvReac Type Severity Reaction Status Date / Time cephalexin [From Keflex] Allergy Difficulty Verified 08/12/17 20:28 Breathing Cardiovascular: Reports: dyspnea on exertion. Denies: chest pain, palpitations Respiratory: Reports: cough, sputum production. Denies: hemoptysis Gastrointestinal: Denies: nausea, vomiting Endocrine: Denies: fatigue Past Medical History - Past Medical History Medical history: Reports: arthritis, atrial fibrillation, CHF, COPD, coronary artery disease, CVA, GERD, hyperlipidemia, hypertension, liver disease, myoc ardial infarction Surgical history: Reports: orthopedic, other, pacemaker/AICD Psychiatric history: Reports: no psych history - Social History Smoking Status: Former smoker Smokeless Tobacco Status: No Alcohol use: Reports: none Drug use: Reports: none Physical Exam - General Limitations: no limitations General appearance: alert, in no apparent distress, other (Able to speak in full sentences with some subcostal retractions) - Head Head exam: atraumatic, normocephalic - ENT ENT exam: other (3 L of nasal cannula and is receiving a DuoNeb. Saturations are 98%) - Chest Chest inspection: Present: normal inspection, symmetric chest wall rise - Respiratory Respiratory exam: Present: respiratory distress (Subcostal retractions as above), wheezes (Diffuse inspiratory expiratory wheezes with fair air exchange) - Cardiovascular Cardiovascular exam: Present: regular rate, normal rhythm, normal heart sounds - Extremities Exam Extremities exam: Present: pedal edema (Trace pitting edema bilateral ankles). Absent: calf tenderness (No calf edema cord or erythema) - Neurological Exam Neurological exam: Present: alert - Psychiatric Psychiatric exam: Present: normal affect, normal mood - Skin Skin exam: Present: warm, dry Course Vital Signs Temperature 97.9 F 05/14/18 16:59 Pulse Rate 69 05/14/18 16:59 Respiratory Rate 18 05/14/18 16:59 Blood Pressure 170/87 05/14/18 16:59 O2 Sat by Pulse Oximetry 97 05/14/18 16:59 Temperature 98.9 F 05/20/18 17:51 Pulse Rate 70 05/20/18 17:51 Respiratory Rate 18 05/20/18 17:55 Blood Pressure 109/73 05/20/18 17:51 O2 Sat by Pulse Oximetry 99 05/20/18 17:55 Medical Decision Making - [facility] Narrative Medical decision making narrative: COPD exacerbation. I do not believe that Mr. Hoover needs to be intubated at the present time. I have asked for 2 additional DuoNeb's and 3 albuterol's to be done. These completed at approximately 7 PM after which time I reassessed him. Wheezes are decreased with better air exchange saturations continued to be in the mid 90s on 3 L of nasal cannula. I spoke once again with the attending physician about potential options. I did reiterate my belief that he is not a candidate for intubation at this point. We did talk about the possibility of [place] but evidently Mr. Hoover's daughter was adamantly against this. After further discussion it was decided that we would continue to medicate him here with IV Solu-Medrol and frequent nebulized treatments and if needed advanced to BiPAP. His attending is in agreement with this plan and will be reassessed in the morning. I did reassess Mr. Hoover again at approximately 10:30 PM he is laying in bed ready to go to sleep with the BiPAP 28% FiO2 15/8 20 respirations per minutes 98% saturation. Repeat lung exam demonstrates inspiratory expiratory wheezes with good air exchange. Mild subcostal retractions. Mr. Hoover tells me he is feeling back to normal. - Medical Records Medical records reviewed: Yes I reviewed the patient's medical records. - Lab Data Lab results reviewed: Yes I reviewed the patient's lab results. Result diagrams: 05/20/18 18:35 05/20/18 18:35 Lab Results 05/15/18 05/15/18 05/15/18 Range/Units 06:00 06:00 06:00 WBC 4.0 L (4.3-11.1) K/mcL RBC 3.63 L (4.19-5.50) M/mcL Hgb 10.9 L D (12.9-16.9) g/dL Hct 34.0 L (37.5-50.1) % MCV 93.7 (83.0-100.0) fL MCH 30.0 (28.0-33.3) pg MCHC 32.1 (31.6-35.5) g/dL RDW 13.6 (11.5-14.5) % Plt Count 123 L (140-400) K/mcL MPV 9.1 L (9.4-12.4) fL Immature Gran % 0.3 (0-4) % Seg Neutrophils % 75.8 % Lymphocytes % 10.1 % Monocytes % 10.3 % Eosinophils % 3.0 % Basophils % 0.5 % Neutrophils # 3.0 (1.6-8.9) K/mcL Lymphocytes # 0.4 L (0.6-4.6) K/mcL Monocytes # 0.4 (0.0-1.3) K/mcL Eosinophils # 0.1 (0.0-0.6) K/mcL Basophils # 0.0 (0.0-0.2) K/mcL PT 14.6 H (9.4-12.1) Seconds INR 1.3 APTT 37.7 H (26.0-36.0) Seconds D-Dimer (0-500) ng/mLFEU ABG pH (7.32-7.45) pH Units ABG pCO2 (35-45) mmHg ABG pO2 (85-104) mmHg ABG HCO3 (21-27) mEq/L ABG Total CO2 (20-26) mEq/L ABG O2 Saturation (95-98) % ABG Base Excess (-2 to 3) mEq/L VBG pH (7.32-7.42) pH Units VBG pCO2 (41-51) mmHg VBG pO2 (25-50) mmHg VBG HCO3 (21-27) mEq/L Sodium 141 (136-145) mEq/L Potassium 4.3 (3.5-5.1) mEq/L Chloride 106 (98-107) mEq/L Carbon Dioxide 24 (23-29) mEq/L BUN 14 (8-23) mg/dL Creatinine 1.08 (0.70-1.30) mg/dL Est GFR ( Amer) > 60 (> 60) Est GFR (Non-Af Amer) > 60 (> 60) BUN/Creatinine Ratio 13 (6-26) Glucose 101 (70-105) mg/dL Calculated Osmolality 293 (280-300) Calcium 9.1 (8.6-10.3) mg/dL Magnesium 2.1 (1.6-2.6) mg/dL Total Bilirubin 0.7 (0.3-1.0) mg/dL AST 27 (13-39) Units/L ALT 15 (7-52) Units/L Alkaline Phosphatase 55 (34-104) Units/L Troponin I (< 0.04) ng/mL B-Natriuretic Peptide (Less than 100) pg/mL Serum Total Protein 6.4 (6.4-8.9) g/dL Albumin 3.6 (3.5-5.7) g/dL Globulin 2.8 (2.4-3.5) g/dL Albumin/Globulin Ratio 1.3 (1.1-2.2) TSH (0.340-5.600) mcIU/mL Urine Color (Yellow) Urine Clarity (Clear) Urine pH (5.0-8.0) pH Units Ur Specific [place] (1.010-1.025) Urine Protein (Neg-Trace) mg/dL Urine Glucose (UA) (Normal) mg/dL Urine Ketones (Negative) mg/dL Urine Blood (Negative) Urine Nitrite (Negative) Urine Bilirubin (Negative) Urine Urobilinogen (Normal) mg/dL Ur Leukocyte Esterase (Negative) Ur Culture Indicated? (NO) 05/15/18 05/16/18 05/16/18 Range/Units 06:00 04:55 16:15 WBC (4.3-11.1) K/mcL RBC (4.19-5.50) M/mcL Hgb (12.9-16.9) g/dL Hct (37.5-50.1) % MCV (83.0-100.0) fL MCH (28.0-33.3) pg MCHC (31.6-35.5) g/dL RDW (11.5-14.5) % Plt Count (140-400) K/mcL MPV (9.4-12.4) fL Immature Gran % (0-4) % Seg Neutrophils % % Lymphocytes % % Monocytes % % Eosinophils % % Basophils % % Neutrophils # (1.6-8.9) K/mcL Lymphocytes # (0.6-4.6) K/mcL Monocytes # (0.0-1.3) K/mcL Eosinophils # (0.0-0.6) K/mcL Basophils # (0.0-0.2) K/mcL PT (9.4-12.1) Seconds INR APTT (26.0-36.0) Seconds D-Dimer (0-500) ng/mLFEU ABG pH (7.32-7.45) pH Units ABG pCO2 (35-45) mmHg ABG pO2 (85-104) mmHg ABG HCO3 (21-27) mEq/L ABG Total CO2 (20-26) mEq/L ABG O2 Saturation (95-98) % ABG Base Excess (-2 to 3) mEq/L VBG pH (7.32-7.42) pH Units VBG pCO2 (41-51) mmHg VBG pO2 (25-50) mmHg VBG HCO3 (21-27) mEq/L Sodium (136-145) mEq/L Potassium (3.5-5.1) mEq/L Chloride (98-107) mEq/L Carbon Dioxide (23-29) mEq/L BUN (8-23) mg/dL Creatinine (0.70-1.30) mg/dL Est GFR ( Amer) (> 60) Est GFR (Non-Af Amer) (> 60) BUN/Creatinine Ratio (6-26) Glucose (70-105) mg/dL Calculated Osmolality (280-300) Calcium (8.6-10.3) mg/dL Magnesium (1.6-2.6) mg/dL Total Bilirubin (0.3-1.0) mg/dL AST (13-39) Units/L ALT (7-52) Units/L Alkaline Phosphatase (34-104) Units/L Troponin I (< 0.04) ng/mL B-Natriuretic Peptide 384 H (Less than 100) pg/mL Serum Total Protein (6.4-8.9) g/dL Albumin (3.5-5.7) g/dL Globulin (2.4-3.5) g/dL Albumin/Globulin Ratio (1.1-2.2) TSH 0.792 (0.340-5.600) mcIU/mL Urine Color Yellow (Yellow) Urine Clarity Clear (Clear) Urine pH 6.0 (5.0-8.0) pH Units Ur Specific [place] 1.020 (1.010-1.025) Urine Protein Negative (Neg-Trace) mg/dL Urine Glucose (UA) Normal (Normal) mg/dL Urine Ketones Negative (Negative) mg/dL Urine Blood Negative (Negative) Urine Nitrite Negative (Negative) Urine Bilirubin Negative (Negative) Urine Urobilinogen Normal (Normal) mg/dL Ur Leukocyte Esterase Negative (Negative) Ur Culture Indicated? NO (NO) 05/19/18 05/19/18 05/19/18 Range/Units 08:05 08:05 08:05 WBC 5.5 (4.3-11.1) K/mcL RBC 3.45 L (4.19-5.50) M/mcL Hgb 10.4 L (12.9-16.9) g/dL Hct 31.9 L (37.5-50.1) % MCV 92.5 (83.0-100.0) fL MCH 30.1 (28.0-33.3) pg MCHC 32.6 (31.6-35.5) g/dL RDW 13.9 (11.5-14.5) % Plt Count 158 (140-400) K/mcL MPV 9.3 L (9.4-12.4) fL Immature Gran % 0.4 (0-4) % Seg Neutrophils % 88.4 % Lymphocytes % 4.9 % Monocytes % 6.3 % Eosinophils % 0.0 % Basophils % 0.0 % Neutrophils # 4.9 (1.6-8.9) K/mcL Lymphocytes # 0.3 L (0.6-4.6) K/mcL Monocytes # 0.4 (0.0-1.3) K/mcL Eosinophils # 0.0 (0.0-0.6) K/mcL Basophils # 0.0 (0.0-0.2) K/mcL PT (9.4-12.1) Seconds INR APTT (26.0-36.0) Seconds D-Dimer (0-500) ng/mLFEU ABG pH (7.32-7.45) pH Units ABG pCO2 (35-45) mmHg ABG pO2 (85-104) mmHg ABG HCO3 (21-27) mEq/L ABG Total CO2 (20-26) mEq/L ABG O2 Saturation (95-98) % ABG Base Excess (-2 to 3) mEq/L VBG pH (7.32-7.42) pH Units VBG pCO2 (41-51) mmHg VBG pO2 (25-50) mmHg VBG HCO3 (21-27) mEq/L Sodium 138 (136-145) mEq/L Potassium 3.5 (3.5-5.1) mEq/L Chloride 101 (98-107) mEq/L Carbon Dioxide 28 (23-29) mEq/L BUN 40 H (8-23) mg/dL Creatinine 1.42 H (0.70-1.30) mg/dL Est GFR ( Amer) 59 L (> 60) Est GFR (Non-Af Amer) 48 L (> 60) BUN/Creatinine Ratio 28 H (6-26) Glucose 90 (70-105) mg/dL Calculated Osmolality 295 (280-300) Calcium 8.7 (8.6-10.3) mg/dL Magnesium (1.6-2.6) mg/dL Total Bilirubin (0.3-1.0) mg/dL AST (13-39) Units/L ALT (7-52) Units/L Alkaline Phosphatase (34-104) Units/L Troponin I (< 0.04) ng/mL B-Natriuretic Peptide 292 H (Less than 100) pg/mL Serum Total Protein (6.4-8.9) g/dL Albumin (3.5-5.7) g/dL Globulin (2.4-3.5) g/dL Albumin/Globulin Ratio (1.1-2.2) TSH (0.340-5.600) mcIU/mL Urine Color (Yellow) Urine Clarity (Clear) Urine pH (5.0-8.0) pH Units Ur Specific [place] (1.010-1.025) Urine Protein (Neg-Trace) mg/dL Urine Glucose (UA) (Normal) mg/dL Urine Ketones (Negative) mg/dL Urine Blood (Negative) Urine Nitrite (Negative) Urine Bilirubin (Negative) Urine Urobilinogen (Normal) mg/dL Ur Leukocyte Esterase (Negative) Ur Culture Indicated? (NO) 05/19/18 05/19/18 05/20/18 Range/Units 08:39 09:35 06:16 WBC 4.1 L (4.3-11.1) K/mcL RBC 3.27 L (4.19-5.50) M/mcL Hgb 9.9 L (12.9-16.9) g/dL Hct 30.4 L (37.5-50.1) % MCV 93.0 (83.0-100.0) fL MCH 30.3 (28.0-33.3) pg MCHC 32.6 (31.6-35.5) g/dL RDW 13.7 (11.5-14.5) % Plt Count 152 (140-400) K/mcL MPV 9.6 (9.4-12.4) fL Immature Gran % 0.2 (0-4) % Seg Neutrophils % 87.5 % Lymphocytes % 5.8 % Monocytes % 6.5 % Eosinophils % 0.0 % Basophils % 0.0 % Neutrophils # 3.6 (1.6-8.9) K/mcL Lymphocytes # 0.2 L (0.6-4.6) K/mcL Monocytes # 0.3 (0.0-1.3) K/mcL Eosinophils # 0.0 (0.0-0.6) K/mcL Basophils # 0.0 (0.0-0.2) K/mcL PT (9.4-12.1) Seconds INR APTT (26.0-36.0) Seconds D-Dimer (0-500) ng/mLFEU ABG pH 7.42 (7.32-7.45) pH Units ABG pCO2 43 (35-45) mmHg ABG pO2 71 L (85-104) mmHg ABG HCO3 28 H (21-27) mEq/L ABG Total CO2 29 H (20-26) mEq/L ABG O2 Saturation 94 L (95-98) % ABG Base Excess 3 (-2 to 3) mEq/L VBG pH (7.32-7.42) pH Units VBG pCO2 (41-51) mmHg VBG pO2 (25-50) mmHg VBG HCO3 (21-27) mEq/L Sodium (136-145) mEq/L Potassium (3.5-5.1) mEq/L Chloride (98-107) mEq/L Carbon Dioxide (23-29) mEq/L BUN (8-23) mg/dL Creatinine (0.70-1.30) mg/dL Est GFR ( Amer) (> 60) Est GFR (Non-Af Amer) (> 60) BUN/Creatinine Ratio (6-26) Glucose (70-105) mg/dL Calculated Osmolality (280-300) Calcium (8.6-10.3) mg/dL Magnesium (1.6-2.6) mg/dL Total Bilirubin (0.3-1.0) mg/dL AST (13-39) Units/L ALT (7-52) Units/L Alkaline Phosphatase (34-104) Units/L Troponin I (< 0.04) ng/mL B-Natriuretic Peptide (Less than 100) pg/mL Serum Total Protein (6.4-8.9) g/dL Albumin (3.5-5.7) g/dL Globulin (2.4-3.5) g/dL Albumin/Globulin Ratio (1.1-2.2) TSH (0.340-5.600) mcIU/mL Urine Color Yellow (Yellow) Urine Clarity Clear (Clear) Urine pH 6.0 (5.0-8.0) pH Units Ur Specific [place] 1.015 (1.010-1.025) Urine Protein Negative (Neg-Trace) mg/dL Urine Glucose (UA) Normal (Normal) mg/dL Urine Ketones Negative (Negative) mg/dL Urine Blood Negative (Negative) Urine Nitrite Negative (Negative) Urine Bilirubin Negative (Negative) Urine Urobilinogen Normal (Normal) mg/dL Ur Leukocyte Esterase Negative (Negative) Ur Culture Indicated? NO (NO) 05/20/18 05/20/18 05/20/18 Range/Units 06:16 18:30 18:35 WBC 6.0 (4.3-11.1) K/mcL RBC 3.73 L (4.19-5.50) M/mcL Hgb 11.2 L (12.9-16.9) g/dL Hct 35.1 L (37.5-50.1) % MCV 94.1 (83.0-100.0) fL MCH 30.0 (28.0-33.3) pg MCHC 31.9 (31.6-35.5) g/dL RDW 13.8 (11.5-14.5) % Plt Count 182 (140-400) K/mcL MPV 9.4 (9.4-12.4) fL Immature Gran % 0.5 (0-4) % Seg Neutrophils % 92.6 % Lymphocytes % 3.2 % Monocytes % 3.7 % Eosinophils % 0.0 % Basophils % 0.0 % Neutrophils # 5.5 (1.6-8.9) K/mcL Lymphocytes # 0.2 L (0.6-4.6) K/mcL Monocytes # 0.2 (0.0-1.3) K/mcL Eosinophils # 0.0 (0.0-0.6) K/mcL Basophils # 0.0 (0.0-0.2) K/mcL PT (9.4-12.1) Seconds INR APTT 32.0 (26.0-36.0) Seconds D-Dimer (0-500) ng/mLFEU ABG pH (7.32-7.45) pH Units ABG pCO2 (35-45) mmHg ABG pO2 (85-104) mmHg ABG HCO3 (21-27) mEq/L ABG Total CO2 (20-26) mEq/L ABG O2 Saturation (95-98) % ABG Base Excess (-2 to 3) mEq/L VBG pH (7.32-7.42) pH Units VBG pCO2 (41-51) mmHg VBG pO2 (25-50) mmHg VBG HCO3 (21-27) mEq/L Sodium 139 (136-145) mEq/L Potassium 3.9 (3.5-5.1) mEq/L Chloride 100 (98-107) mEq/L Carbon Dioxide 32 H (23-29) mEq/L BUN 42 H (8-23) mg/dL Creatinine 1.31 H (0.70-1.30) mg/dL Est GFR ( Amer) > 60 (> 60) Est GFR (Non-Af Amer) 53 L (> 60) BUN/Creatinine Ratio 32 H (6-26) Glucose 107 H (70-105) mg/dL Calculated Osmolality 299 (280-300) Calcium 9.0 (8.6-10.3) mg/dL Magnesium (1.6-2.6) mg/dL Total Bilirubin (0.3-1.0) mg/dL AST (13-39) Units/L ALT (7-52) Units/L Alkaline Phosphatase (34-104) Units/L Troponin I (< 0.04) ng/mL B-Natriuretic Peptide (Less than 100) pg/mL Serum Total Protein (6.4-8.9) g/dL Albumin (3.5-5.7) g/dL Globulin (2.4-3.5) g/dL Albumin/Globulin Ratio (1.1-2.2) TSH (0.340-5.600) mcIU/mL Urine Color (Yellow) Urine Clarity (Clear) Urine pH (5.0-8.0) pH Units Ur Specific [place] (1.010-1.025) Urine Protein (Neg-Trace) mg/dL Urine Glucose (UA) (Normal) mg/dL Urine Ketones (Negative) mg/dL Urine Blood (Negative) Urine Nitrite (Negative) Urine Bilirubin (Negative) Urine Urobilinogen (Normal) mg/dL Ur Leukocyte Esterase (Negative) Ur Culture Indicated? (NO) 05/20/18 05/20/18 05/20/18 Range/Units 18:35 18:35 18:35 WBC (4.3-11.1) K/mcL RBC (4.19-5.50) M/mcL Hgb (12.9-16.9) g/dL Hct (37.5-50.1) % MCV (83.0-100.0) fL MCH (28.0-33.3) pg MCHC (31.6-35.5) g/dL RDW (11.5-14.5) % Plt Count (140-400) K/mcL MPV (9.4-12.4) fL Immature Gran % (0-4) % Seg Neutrophils % % Lymphocytes % % Monocytes % % Eosinophils % % Basophils % % Neutrophils # (1.6-8.9) K/mcL Lymphocytes # (0.6-4.6) K/mcL Monocytes # (0.0-1.3) K/mcL Eosinophils # (0.0-0.6) K/mcL Basophils # (0.0-0.2) K/mcL PT (9.4-12.1) Seconds INR APTT (26.0-36.0) Seconds D-Dimer 1111 H (0-500) ng/mLFEU ABG pH (7.32-7.45) pH Units ABG pCO2 (35-45) mmHg ABG pO2 (85-104) mmHg ABG HCO3 (21-27) mEq/L ABG Total CO2 (20-26) mEq/L ABG O2 Saturation (95-98) % ABG Base Excess (-2 to 3) mEq/L VBG pH (7.32-7.42) pH Units VBG pCO2 (41-51) mmHg VBG pO2 (25-50) mmHg VBG HCO3 (21-27) mEq/L Sodium 136 (136-145) mEq/L Potassium 4.9 D (3.5-5.1) mEq/L Chloride 96 L (98-107) mEq/L Carbon Dioxide 31 H (23-29) mEq/L BUN 51 H (8-23) mg/dL Creatinine 1.53 H (0.70-1.30) mg/dL Est GFR ( Amer) 54 L (> 60) Est GFR (Non-Af Amer) 44 L (> 60) BUN/Creatinine Ratio 33 H (6-26) Glucose 120 H (70-105) mg/dL Calculated Osmolality 297 (280-300) Calcium 9.3 (8.6-10.3) mg/dL Magnesium (1.6-2.6) mg/dL Total Bilirubin 0.7 (0.3-1.0) mg/dL AST 42 H (13-39) Units/L ALT 32 (7-52) Units/L Alkaline Phosphatase 56 (34-104) Units/L Troponin I 0.04 H* (< 0.04) ng/mL B-Natriuretic Peptide 148 H (Less than 100) pg/mL Serum Total Protein 7.0 (6.4-8.9) g/dL Albumin 3.8 (3.5-5.7) g/dL Globulin 3.2 (2.4-3.5) g/dL Albumin/Globulin Ratio 1.2 (1.1-2.2) TSH (0.340-5.600) mcIU/mL Urine Color (Yellow) Urine Clarity (Clear) Urine pH (5.0-8.0) pH Units Ur Specific [place] (1.010-1.025) Urine Protein (Neg-Trace) mg/dL Urine Glucose (UA) (Normal) mg/dL Urine Ketones (Negative) mg/dL Urine Blood (Negative) Urine Nitrite (Negative) Urine Bilirubin (Negative) Urine Urobilinogen (Normal) mg/dL Ur Leukocyte Esterase (Negative) Ur Culture Indicated? (NO) 05/20/18 Range/Units 18:50 WBC (4.3-11.1) K/mcL RBC (4.19-5.50) M/mcL Hgb (12.9-16.9) g/dL Hct (37.5-50.1) % MCV (83.0-100.0) fL MCH (28.0-33.3) pg MCHC (31.6-35.5) g/dL RDW (11.5-14.5) % Plt Count (140-400) K/mcL MPV (9.4-12.4) fL Immature Gran % (0-4) % Seg Neutrophils % % Lymphocytes % % Monocytes % % Eosinophils % % Basophils % % Neutrophils # (1.6-8.9) K/mcL Lymphocytes # (0.6-4.6) K/mcL Monocytes # (0.0-1.3) K/mcL Eosinophils # (0.0-0.6) K/mcL Basophils # (0.0-0.2) K/mcL PT (9.4-12.1) Seconds INR APTT (26.0-36.0) Seconds D-Dimer (0-500) ng/mLFEU ABG pH (7.32-7.45) pH Units ABG pCO2 (35-45) mmHg ABG pO2 (85-104) mmHg ABG HCO3 (21-27) mEq/L ABG Total CO2 (20-26) mEq/L ABG O2 Saturation (95-98) % ABG Base Excess (-2 to 3) mEq/L VBG pH 7.30 L (7.32-7.42) pH Units VBG pCO2 59 H (41-51) mmHg VBG pO2 31 (25-50) mmHg VBG HCO3 30 H (21-27) mEq/L Sodium (136-145) mEq/L Potassium (3.5-5.1) mEq/L Chloride (98-107) mEq/L Carbon Dioxide (23-29) mEq/L BUN (8-23) mg/dL Creatinine (0.70-1.30) mg/dL Est GFR ( Amer) (> 60) Est GFR (Non-Af Amer) (> 60) BUN/Creatinine Ratio (6-26) Glucose (70-105) mg/dL Calculated Osmolality (280-300) Calcium (8.6-10.3) mg/dL Magnesium (1.6-2.6) mg/dL Total Bilirubin (0.3-1.0) mg/dL AST (13-39) Units/L ALT (7-52) Units/L Alkaline Phosphatase (34-104) Units/L Troponin I (< 0.04) ng/mL B-Natriuretic Peptide (Less than 100) pg/mL Serum Total Protein (6.4-8.9) g/dL Albumin (3.5-5.7) g/dL Globulin (2.4-3.5) g/dL Albumin/Globulin Ratio (1.1-2.2) TSH (0.340-5.600) mcIU/mL Urine Color (Yellow) Urine Clarity (Clear) Urine pH (5.0-8.0) pH Units Ur Specific [place] (1.010-1.025) Urine Protein (Neg-Trace) mg/dL Urine Glucose (UA) (Normal) mg/dL Urine Ketones (Negative) mg/dL Urine Blood (Negative) Urine Nitrite (Negative) Urine Bilirubin (Negative) Urine Urobilinogen (Normal) mg/dL Ur Leukocyte Esterase (Negative) Ur Culture Indicated? (NO) - Radiology Data Radiology results reviewed: Yes I reviewed the patient's radiology results. Chest x-ray is not significantly changed from most recent study - EKG Data EKG #1 EKG attestation: Yes I reviewed and interpreted this EKG. EKG results narrative: EKG as interpreted by me paced rhythm 96 bpm. Sgarbossa criteria is not met for myocardial infarction with paced rhythm.
[2018-05-21] MEDS ORDERED: methylPREDNISolone 60 MG in 0.9 % Sodium Chloride 100 ML IVPB SCH
[2018-05-21] MEDS: Ipratropium/Albuterol Neb 3 ML IH SCH ×3 (01:03→15:21)
[2018-05-21] MEDS: methylPREDNISolone 125 MG/2 ML VIAL IVP SCH ×3 (01:05→10:33)
[2018-05-21 09:49] VITALS: BP 128/70
--- NOTE | 2018-05-21 10:08 | Internal Med Progress Note ---
Addendum entered and electronically signed by Kameron Ceja MD 05/21/18 14:59: I have personally performed a face to face evaluation on this patient. I have r eviewed and agree with the care plan. History and Exam by me shows: We tried for multiple hours to transfer him to [facility]. A felt that he needed to be intubated, prior to transport, to place him at [facility]. I told him that I did not think that was necessary, that is long as patient was n ot exertional he was able to tolerate being on oxygen. They insisted that he be intubated before transfer. I spoke to Dr. Mclaughlin, the emergency room physician, who assessed the patient did not feel he needed to be intubated, as well. He gave him IV steroids as well as increased his respiratory treatments. He was reasonably stable overnight. He was found to have an elevated d-dimer but we could not do a CAT scan of his chest today because of his renal insufficiency. We have no ability to arrange for ventilation/perfusion scan, here. It was felt that he was best managed at a more acute hospital. While health agreed to take him in transfer at [facility] and this is being arranged, now. The patient has breathing at baseline. He is fine as long as he does not exert. He is enjoying his time here but admits that he is unable to participate in therapy because of his breathing. He states that he moved his bowels yesterday. He denies problems and would like to have his catheter out. I told him that this would be removed when we are sure he did not need it. Upon review of his lab, he has more renal insufficiency and his BMP is diminished. I suspect he is slightly over diuresed. We will defer management and removal of catheter to his next hospital. We optimized his IV steroids last night and scheduled them, today. Please see comments about eventual follow-up of a prominent right thyroid. Discussed care with other providers and/or nursing. Patient has no complaint of chest discomfort, dyspnea, orthopnea, palpitations, nausea or vomiting, constipation or diarrhea, other changes in bowel habits, difficulty with urination, rash or itching, or other new complaints, except as mentioned above. Review of systems is otherwise negative. Examination: (Except as mentioned above): General: In no apparent distress. Alert and oriented 3. Nondiaphoretic. He has right esophoria, as before. Head: Atraumatic and normocephalic. Respiratory: No use of accessory muscles. He still has sonorous rhonchi, diffusely, with diminished airflow but per his baseline. Cardiovascular: Regular rate and rhythm without murmur appreciated. Abdomen: Bowel sounds are normal. No hepatosplenomegaly mass or tenderness appreciated. Obese and therefore difficult to palpate deeply. Patient is examined upright in chair and this also limits exam. Extremities: No cyanosis clubbing or change in edema. This is 2-3+. Skin: Warm and non-diaphoretic with no new lesions noted. The whole time he was here, the patient was limited by his respiratory status and could not participate adequately with therapies. As noted above, he needs to be evaluated for an elevated d-dimer and he is not on anticoagulation because of fall risk, I am concerned about his bleeding risk. He was to start anticoagulation weeks down the road, per his previous hospitalization. Will defer to follow-up hospital about whether or not he could be anticoagulated now for if he would need an IVC filter. Original Note: Date of Encounter: 05/21/18 Time of Encounter: 10:05 - Assessment and plan (1) CVA (cerebral vascular accident) Current Visit: Yes Status: Inactive Assessment and plan: Continue PT, OT and speech therapy. Will follow for progress. Qualifiers: CVA mechanism: thrombosis Precerebral and cerebral artery: middle cerebral artery Laterality of affected vessel: left Qualified Code(s): I63.312 - Cerebral infarction due to thrombosis of left middle cerebral artery (2) CHF (congestive heart failure) Current Visit: Yes Status: Chronic Assessment and plan: Continue Lasix. Will monitor. Qualifiers: Heart failure type: unspecified Heart failure chronicity: acute on chronic Qualified Code(s): I50.9 - Heart failure, unspecified (3) Essential hypertension Current Visit: Yes Status: Acute Assessment and plan: Controlled with current medication. Monitor blood pressure. (4) COPD exacerbation Current Visit: Yes Status: Acute Assessment and plan: Continue BiPAP and IV steroids. Continue to monitor oxygen. - Time Spent With Patient 25 - 35 minutes - Subjective Interval history: Currently resting in bed. Denies any increased shortness of breath. States he is feeling better. Maintaining appetite and hydration. Having difficulty participating in therapy due to respiratory status. Maintaining O2 sats greater than 94% on 3 L per nasal cannula. denies fever, chills, NVD or chest pain. - Constitutional Vitals: Temp Pulse Resp BP Pulse Ox 97.7 F 84 17 128/70 98 05/21/18 06:00 05/21/18 06:00 05/21/18 06:00 05/21/18 06:00 05/21/18 06:00 General appearance: Present: cooperative, A&O X 3, pleasant, no acute distress, answers questions appropriately - Head Head exam: Present: atraumatic, normocephalic - Eye Eye exam: Present: PERRL, conjuntiva pink, sclera anicteric Pupils: Present: PERRL - Neck Neck exam general surgery: Present: supple, trachea midline. Absent: lymphadenopathy - Respiratory Respiratory exam: Present: accessory muscle use, rales, wheezes. Absent: rhonchi - Cardiovascular Cardiovascular exam: Present: RRR, +S1, +S2. Absent: diastolic murmur, gallop, rubs, systolic murmur - GI/Abdominal GI/Abdominal exam: Present: normal bowel sounds, soft, no peritoneal signs. Absent: distended, tenderness - Extremities Exam Extremities exam: Present: warm, radial pulses palpable and symmetrical. Absent: calf tenderness, cyanotic, pedal edema Additional comments: 1+ pitting edema BLE. - Neurological Exam Neurological exam: Present: CN II-XII intact, oriented X3, no focal deficits. Absent: pronater drift, facial droop, speech deficit - Skin Skin exam: Present: dry, intact Internal Medicine: Result - Labs CBC & Chem 7: 05/20/18 18:35 05/20/18 18:35 Labs: Short CBC 05/20/18 Range/Units 18:35 WBC 6.0 (4.3-11.1) K/mcL Hgb 11.2 L (12.9-16.9) g/dL Hct 35.1 L (37.5-50.1) % Plt Count 182 (140-400) K/mcL Neutrophils # 5.5 (1.6-8.9) K/mcL BMP 05/20/18 18:35 Sodium 136 Potassium 4.9 D Chloride 96 L Carbon Dioxide 31 H BUN 51 H Creatinine 1.53 H Glucose 120 H Calcium 9.3 Cardiac Enzymes 05/20/18 Range/Units 18:35 Troponin I 0.04 H* (< 0.04) ng/mL Liver Function 05/20/18 Range/Units 18:35 Total Bilirubin 0.7 (0.3-1.0) mg/dL AST 42 H (13-39) Units/L ALT 32 (7-52) Units/L Alkaline Phosphatase 56 (34-104) Units/L Albumin 3.8 (3.5-5.7) g/dL - ABG Interpretation ABG results: ABG ABG pH 7.42 pH Units (7.32-7.45) 05/19/18 08:39 ABG pCO2 43 mmHg (35-45) 05/19/18 08:39 ABG pO2 71 mmHg (85-104) L 05/19/18 08:39 ABG O2 Saturation 94 % (95-98) L 05/19/18 08:39 PT/INR, D-dimer PT 14.6 Seconds (9.4-12.1) H 05/15/18 06:00 D-Dimer 1111 ng/mLFEU (0-500) H 05/20/18 18:35 - Impressions Impressions Chest X-Ray 05/20/18 18:06 IMPRESSION: Borderline pulmonary vascular congestion. Otherwise negative. D/ / Henrique Diaz MD / Henrique Diaz MD Interpreting Provider: Henrique Diaz MD Consult Discharge Plan - Plan Instructions: Heart Failure (DC) Referrals: Kamla Garcia TRAFFIC CONTROL SUPERVISOR [Primary Care Provider] -
[2018-05-21] MEDS: Aspirin Enteric Coated 325 MG Tablet PO SCH (10:33)
[2018-05-21] MEDS: Furosemide 40 MG TABLET PO SCH (10:33)
[2018-05-21] MEDS: Metoprolol XL (24 HR) Succ 50 MG TAB.ER.24H PO SCH (10:33)
[2018-05-21] MEDS: Lisinopril 20 MG TABLET PO SCH (10:34)
[2018-05-21] MEDS: Nystatin SUSP 5 ML UD.LIQ PO SCH (10:34)
[2018-05-21] MEDS: levoFLOXacin 500 MG TABLET PO SCH (10:34)
[2018-05-21] MEDS: Umeclidinium Bromide [Incruse Ellipta] 1 PUFF IH SCH (10:34)
[2018-05-21] MEDS: Megestrol Acetate 400 MG/10 ML UDC PO SCH (10:34)
[2018-05-21] MEDS: predniSONE 20 MG TABLET PO SCH (10:35)
[2018-05-21] MEDS ORDERED: Isovue-370 500 ML INFUS..BTL IV ONE (12:14)
--- NOTE | 2018-05-21 17:05 | Electrocardiograph Report ---
[address] [address] Test Date: 2018-05-19 Pat Name: Kameron Hoover Department: 2001 Room: 105 Gender: M Storeroom Keeper: Tlc : 1940 Requested By: Kameron Ceja Order Number: [id number] Reading MD: Bradford Rush Measurements Intervals [place] Rate: 69 P: NV: 0 QRS: 261 QRSD: 177 T: 66 QT: 496 QTc: 515 Interpretive Statements ELECTRONIC VENTRICULAR PACEMAKER Electronically Signed On 05-21-2018 17:04:03 EST by Bradford Rush
--- NOTE | 2018-05-22 15:37 | Electrocardiograph Report ---
[place] [address] Test Date: 2018-05-20 Pat Name: Kameron Hoover Department: 2001 Room: 105 Gender: M Member Of [employer]: [place] : 1940 Requested By: Wong Mclaughlin Order Number: [id number] Georgette MD: Luisa Scott Measurements Intervals [place] Rate: 96 P: ID: 0 QRS: 263 QRSD: 153 T: 74 QT: 409 QTc: 463 Interpretive Statements ELECTRONIC VENTRICULAR PACEMAKER ABNORMAL RHYTHM ECG Electronically Signed On 05-22-2018 15:36:19 EST by Luisa Scott
== END 2018-05-21 15:40 | disposition other institution (70) | DRG 57 ==
LOC: INPGRE 05-14 16:55

== ENCOUNTER 2018-05-28 10:31 | Inpatient (IN) ==
[2018-05-28] MEDS ORDERED: Ipratropium/Albuterol Neb 3 ML IH PRN (20:29)
[2018-05-28] MEDS ORDERED: Mag Hydrox/Al Hydrox/Simeth 30 ML UDC PO PRN (20:44)
[2018-05-28] MEDS: Sennosides/Docusate Sodium TABLET PO SCH (21:36)
[2018-05-28] MEDS: traZODone 50 MG TABLET PO SCH (21:36)
[2018-05-28] MEDS: Ipratropium/Albuterol Neb 3 ML IH SCH (22:13)
[2018-05-29] MEDS: Ipratropium/Albuterol Neb 3 ML IH SCH ×4 (04:53→21:03)
[2018-05-29 05:58] LABS: Eosinophils % 0.3 %; Hematocrit 33.3 % (37.5-50.1); Hemoglobin 10.6 g/dL (12.9-16.9); Immature Granulocytes % 0.9 % (0-4); Lymphocytes # 0.6 K/mcL (0.6-4.6); Lymphocytes % 7.8 %; Mean Corpuscular HGB Conc 31.8 g/dL (31.6-35.5); Mean Platelet Volume 8.9 fL (9.4-12.4); Monocytes # 0.4 K/mcL (0.0-1.3); Monocytes % 4.8 %; Neutrophils # 6.9 K/mcL (1.6-8.9); Platelet Count 163 K/mcL (140-400); Red Blood Count 3.66 M/mcL (4.19-5.50); Red Cell Distribution Width 13.8 % (11.5-14.5); Segmented Neutrophils % 86.2 %
[2018-05-29 06:01] LABS: INR 1.3; Prothrombin Time 14.9 Seconds (9.4-12.1)
[2018-05-29 06:12] LABS: Alanine Aminotransferase 39 Units/L (7-52); Albumin 3.3 g/dL (3.5-5.7); Albumin/Globulin Ratio 1.4 (1.1-2.2); Alkaline Phosphatase 58 Units/L (34-104); Aspartate Amino Transferase 22 Units/L (13-39); BUN/Creatinine Ratio 16 (6-26); Bilirubin,Total 0.7 mg/dL (0.3-1.0); Blood Urea Nitrogen 19 mg/dL (8-23); Calcium 8.9 mg/dL (8.6-10.3); Carbon Dioxide 27 mEq/L (23-29); Chloride 104 mEq/L (98-107); Globulin 2.4 g/dL (2.4-3.5); Glucose 83 mg/dL (70-105); Magnesium 2.2 mg/dL (1.6-2.6); Osmolality,Calculated 285 (280-300); Sodium 137 mEq/L (136-145); Total Protein 5.7 g/dL (6.4-8.9); eGFR For Non-African Americans 58 (> 60)
[2018-05-29] MEDS: Furosemide 40 MG TABLET PO SCH (08:16)
[2018-05-29] MEDS: predniSONE 10 MG TABLET PO SCH (08:16)
[2018-05-29] MEDS: Sennosides/Docusate Sodium TABLET PO SCH ×2 (08:17→20:17)
[2018-05-29] MEDS: Aspirin Enteric Coated 325 MG Tablet PO SCH (08:17)
[2018-05-29] MEDS: Metoprolol XL (24 HR) Succ 50 MG TAB.ER.24H PO SCH (08:17)
[2018-05-29] MEDS: Lisinopril 20 MG TABLET PO SCH (08:17)
--- NOTE | 2018-05-29 09:53 | Internal Med History&Physical ---
Addendum entered and electronically signed by Kameron Ceja MD 05/29/18 11:54: I have personally performed a face to face evaluation on this patient. I have r eviewed and agree with the care plan. History and Exam by me shows: patient known to me from his previous admission. He apparently was diuresed while at [facility] and is doing well, thereafter. He is on oxygen, continuously at 2 L. He is feeling well and he continues to improve. He is happy to be back here and participate in therapies. We were concerned about his ability to participate given his prior respiratory insufficiency. He has been brought back as a swing patient for assessment by therapy but so far he is participating, well. He had some problems with constipation and diarrhea while at [place] but states this is normal. Interestingly, his discharge summary from there indicate that he is supposed to have MiraLAX daily for 7 days. He will probably need MiraLAX when necessary thereafter. He has nothing new on review of systems, since his last time here. He is otherwise doing about the same. History and physical as described below. Patient has no complaint of chest discomfort, dyspnea, orthopnea, breathing problems, palpitations, nausea or vomiting, constipation or diarrhea, other changes in bowel habits, heartburn, difficulty with urination, kidney problems or kidney stones, fevers chills or sweats, rash or itching, seizures, headache or lightheadedness, heat or cold intolerance, blood problems or anemia, or other new complaints, except as mentioned above. Review of systems is otherwise negative. Examination: (Except as mentioned above): General: In no apparent distress, alert and oriented 3. He is on oxygen at 2 L by nasal cannula. Head: Atraumatic and normocephalic. Eyes: Extraocular muscles are intact, pupils equal round and reactive to light and accommodation. Sclerae anicteric. He has right sided gaze divergence, as before. Ears: External ears are normal to inspection and hearing is diminished as before. Nose: Patent without lesion noted. Mouth: No intraoral lesions seen. The patient is edentulous with upper plate denture, only, in place. Neck: Supple with trachea midline. There is no thyromegaly or adenopathy and carotids are 2+ without bruit heard. Respiratory: No use of accessory muscles. Lungs are clear throughout. Normal airflow. Cardiovascular: Regular rate and rhythm without murmur appreciated. Abdomen: Bowel sounds are normal. No hepatosplenomegaly masses or tenderness. Obese and therefore difficult to palpate deeply. Patient is examined upright in chair and this also limits exam. Extremities: No cyanosis clubbing but has less edema than at his last admission. Neurological: A and O 3. Cranial nerves II through XII are intact. No focal deficits and no abnormal movements or postures. Skin: Warm and non-diaphoretic with no lesions noted. Breasts, pelvic and rectal: Not examined. We will continue same medications and therapy as described as above. We will need to watch his renal insufficiency, based upon prior experience with him. Original Note: Date of Encounter: 05/29/18 Time of Encounter: 09:49 Assessment and Plan (1) CVA (cerebral vascular accident) Current visit: Yes Status: Acute PT and OT to eval and treat. Will follow progress. No new neurological deficits at this time. Follow up with neurologist as scheduled. Qualifiers: CVA mechanism: thrombosis Precerebral and cerebral artery: middle cerebral artery Laterality of affected vessel: left Qualified Code(s): I63.312 - Ce rebral infarction due to thrombosis of left middle cerebral artery (2) Former smoker Current visit: Yes Status: Acute Reports he stopped smoking about 4 months ago, but smoked 2 packs a day for several years. (3) Pacemaker Current visit: Yes Status: Acute Has AICD (4) COPD exacerbation Current visit: Yes Status: Acute Stable. Continue PO prednisone and inhaled meds. Continue oxygen. Maintain saturation greater than 90%. (5) CHF (congestive heart failure) Current visit: Yes Status: Chronic Stable. Continue Lasix. Monitor for decompensation. Monitor BMP. Qualifiers: Heart failure type: unspecified Heart failure chronicity: acute on chronic Qualified Code(s): I50.9 - Heart failure, unspecified (6) Essential hypertension Current visit: Yes Status: Acute Controlled with current medication. Monitor blood pressure. Internal Medicine - H&P: HPI Admitted From: Hospital to Hospital Transfer Plans for Post Hospital Care: Home History of present illness: Mr. Hoover is a 77 year old male admitted to inpatient rehab unit status post CVA approximately 3 weeks ago. Patient went to [facility] on after a fall and was found to have had a left-sided MCA stroke. Underwent mechanical thrombectomy. Was then transferred to this facility and had to be sent to [place] on with acute respiratory failure with hypoxemia. Patient has past medical history of COPD, CHF, bradycardia with pacemaker, afib and renal insufficency. Patient was treated for COPD exacerbation with steroids and BiPAP and heart failure with fluid volume overload. Patient has been weaned to nasal cannula oxygen at 2 L and maintaining sets greater than 92%. Patient does wear oxygen at 2 L at home chronically. Patient denies fever, chills, nausea vomiting or diarrhea. States he does occasionally have a productive cough with clear sputum. Only shortness of breath with exertion. Ambulates with Walker with assistance. Maintaining appetite and hydration. States bowels moved yesterday. Here for rehab ad medical management with a plan to return to home. lives home alone. Past Med Surg Social Fam HX - Past Medical History Medical history: arthritis, atrial fibrillation, CHF, COPD, coronary artery disease, CVA, GERD, hyperlipidemia, hypertension, liver disease Additional medical history: Stroke-March 2018 Psychiatric history: no psych history - Past Surgical History Surgical History: orthopedic, other, pacemaker/AICD Additional surgical history: Left Arm Surgery, Right Thumb Surgery - Social History Smoking Status: Former smoker Smokeless Tobacco Status: No Alcohol use: none Drug use: none - Family History Mother Living Status: Hx Family Cancer: Yes Brother Living Status: Internal Medicine - H&P: Meds Aspirin Enteric Coated [Aspirin EC] 325 mg PO DAILY 09/26/16 [History] Atorvastatin [Lipitor] 10 mg PO HS 09/26/16 [History] Furosemide [Lasix] 60 mg PO DAILY 09/26/16 [History] Ipratropium/Albuterol Neb [Duoneb] 3 ml IH Q6HR PRN 09/26/16 [History] Potassium Chloride [Klor-Con Sprinkle] 20 meq PO DAILY 09/26/16 [History] Esomeprazole Magnesium [Nexium] 40 mg PO DAILY 12/11/16 [History] Lisinopril [Zestril] 40 mg PO DAILY 12/11/16 [History] Metoprolol XL (24 HR) Succ [Toprol XL] 50 mg PO DAILY 12/11/16 [History] Umeclidinium [place] [Incruse Ellipta] 1 puff IH DAILY 12/11/16 [History] Montelukast [Singulair] 10 mg PO DAILY 05/14/18 [History] Allergy/AdvReac Type Severity Reaction Status Date / Time cephalexin [From Keflex] Allergy Difficulty Verified 08/12/17 20:28 Breathing All Systems PM: A 10-system review of systems was performed and is negative for pertinent findings except as documented above in the HPI. - Constitutional Constitutional: no chills, no fever(s), no night sweats - EENT Eyes: no change in vision, no discharge, no pain, no photophobia Ears: no ear discharge, no ear pain, no tinnitus Nose, mouth and throat: no dysphagia, no nasal discharge, no neck pain, no sore throat - Cardiovascular Cardiovascular ROS IM: no chest pain, no diaphoresis, no dyspnea, no lightheadedness, no palpitations, no syncope - Respiratory Respiratory: no cough, no dyspnea, no wheezing, no excessive phlegm production - Gastrointestinal Gastrointestinal: no abdominal pain, no diarrhea, no hematemesis, no hematochezia, no melena, no nausea, no vomiting - Musculoskeletal Musculoskeletal ROS IM: no numbness, no tingling - Integumentary Integumentary IM: no rash, no unusual bruising - Neurological Neurological ROS: no confusion, no convulsions, no focal weakness, no numbness, no tingling, no tremor(s) - Hematologic/Lymphatic Hematologic/Lymphatic: no easy bruising - Constitutional Vitals: Temp Pulse Resp BP Pulse Ox 98.4 F 71 14 159/81 99 05/29/18 06:00 05/29/18 06:00 05/29/18 06:00 05/29/18 06:00 05/29/18 06:00 General appearance: Present: cooperative, A&O X 3, pleasant, no acute distress, answers questions appropriately - Head Head exam: Present: atraumatic, normocephalic - Eye Eye exam: Present: PERRL, conjuntiva pink, sclera anicteric Pupils: Present: PERRL - Neck Neck exam general surgery: Present: supple, trachea midline. Absent: lymphadenopathy - Respiratory Respiratory exam: Absent: accessory muscle use, rales, rhonchi, wheezes Additional comments: scattered wheezes and rhonchi throughout. - Cardiovascular Cardiovascular exam: Present: RRR, +S1, +S2. Absent: diastolic murmur, gallop, rubs, systolic murmur - GI/Abdominal GI/Abdominal exam: Present: normal bowel sounds, soft, no peritoneal signs. Absent: distended, tenderness - Extremities Exam Extremities exam: Present: warm, radial pulses palpable and symmetrical. Absent: calf tenderness, cyanotic, pedal edema - Neurological Exam Neurological exam: Present: CN II-XII intact, oriented X3, no focal deficits. Absent: pronater drift, facial droop, speech deficit - Skin Skin exam: Present: dry, intact Additional comments: scattered ecchymosis Internal Med - H&P Results - Labs CBC & Chem 7: 05/29/18 05:40 05/29/18 05:40 Labs: Short CBC 05/29/18 Range/Units 05:40 WBC 8.0 (4.3-11.1) K/mcL Hgb 10.6 L (12.9-16.9) g/dL Hct 33.3 L (37.5-50.1) % Plt Count 163 (140-400) K/mcL Neutrophils # 6.9 (1.6-8.9) K/mcL BMP 05/29/18 05:40 Sodium 137 Potassium 5.0 Chloride 104 Carbon Dioxide 27 BUN 19 Creatinine 1.21 Glucose 83 Calcium 8.9 Liver Function 05/29/18 Range/Units 05:40 Total Bilirubin 0.7 (0.3-1.0) mg/dL AST 22 (13-39) Units/L ALT 39 (7-52) Units/L Alkaline Phosphatase 58 (34-104) Units/L Albumin 3.3 L (3.5-5.7) g/dL
[2018-05-29] MEDS: *HR* Heparin 5,000 UNIT/ML VIAL SQ SCH (17:01)
[2018-05-29] MEDS: traZODone 50 MG TABLET PO SCH (20:17)
[2018-05-30] MEDS: *HR* Heparin 5,000 UNIT/ML VIAL SQ SCH ×2 (05:23→17:23)
[2018-05-30] MEDS: Ipratropium/Albuterol Neb 3 ML IH SCH ×4 (05:23→20:17)
[2018-05-30] MEDS: Aspirin Enteric Coated 325 MG Tablet PO SCH (08:17)
[2018-05-30] MEDS: Sennosides/Docusate Sodium TABLET PO SCH ×2 (08:17→20:16)
[2018-05-30] MEDS: predniSONE 10 MG TABLET PO SCH (08:17)
[2018-05-30] MEDS: Metoprolol XL (24 HR) Succ 50 MG TAB.ER.24H PO SCH (08:17)
[2018-05-30] MEDS: Lisinopril 20 MG TABLET PO SCH (08:18)
[2018-05-30] MEDS: Furosemide 40 MG TABLET PO SCH (08:20)
--- NOTE | 2018-05-30 08:32 | Internal Med Progress Note ---
Addendum entered and electronically signed by Shauna Wills 05/31/18 10:21: I have personally performed a face to face evaluation on this patient. I have reviewed and agree with the care plan. History and Exam by me shows: left maxillary sinus tenderness and yellow nasal crust. Afebrile Otherwise doing well will start treat sinisitis doxycycline po 10 days and flonase nasal spray Original Note: Date of Encounter: 05/30/18 Time of Encounter: 08:30 - Assessment and plan (1) CVA (cerebral vascular accident) Current Visit: Yes Status: Acute Assessment and plan: No acute issues. 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 As any neurological changes since discharge from hospital. Focal neurological deficits noted on exam. Patient reportedly has been progressing well with physical therapy and will continue with current plan of care. 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 Patient states he feels his respiratory status has improved since his discharge from [facility]. Currently lungs are clear with dimi nished bases. Patient denies any dyspnea or productive cough. (3) CHF (congestive heart failure) Current Visit: Yes Status: Chronic Assessment and plan: No acute issues. Patient with diminished breath sounds to bases but otherwise no congestion heard. Respiratory effort appears relaxed. Patient denies any chest palpitations or discomforts. Continue with current plan of care and medications. Qualifiers: Heart failure type: unspecified Heart failure chronicity: acute on chronic Qualified Code(s): I50.9 - Heart failure, unspecified (4) Essential hypertension Current Visit: Yes Status: Chronic Assessment and plan: Vital signs remained stable. We will continue with current medications. (5) Constipation Current Visit: Yes Status: Acute Assessment and plan: Patient with complaints and no BM in 3 days. Patient states history of chronic constipation. States that he takes Dulcolax tabs at home when necessary. We wi ll give patient 2 Dulcolax tabs now. Abd exam negative and denies any cramping. Qualifiers: Constipation type: unspecified constipation type Qualified Code(s): K59.00 - Constipation, unspecified - Time Spent With Patient less than 15 minutes - Subjective Interval history: Patient appears relaxed and currently denies any discomforts or shortness of breath. Patient does state that he has not had a bowel movement in over 3 days but denies any abdominal cramping. Patient states that he has a history of constipation and when at home takes Dulcolax tabs on occasion. Patient denies any acute neurological deficits since his release from hospital. States she continues to have dysphagia and currently has a dysphagia diet. Patient with disconjugate gaze, but states that this has been a chronic issue since childhood. States that his respiratory status has improved. Denies any chest discomforts, palpitations or productive cough. - Constitutional Vitals: Temp Pulse Resp BP Pulse Ox 98.6 F 70 17 116/65 96 05/29/18 19:13 05/29/18 19:13 05/29/18 19:13 05/29/18 19:13 05/29/18 19:13 General appearance: Present: cooperative, A&O X 3, pleasant, no acute distress, answers questions appropriately - Head Head exam: Present: atraumatic, normocephalic - Eye Eye exam: Present: PERRL, conjuntiva pink, sclera anicteric Pupils: Present: PERRL Additional comments: Disconjugate gaze. EOMI intact. No visual cut noted - Neck Neck exam general surgery: Present: supple, trachea midline. Absent: lymphadenopathy - Respiratory Respiratory exam: Present: CTAB. Absent: accessory muscle use, rales, rhonchi, wheezes Additional comments: Lungs are clear throughout upper [place] with diminished bases. Respiratory effort appears relaxed. No productive cough noted. - Cardiovascular Cardiovascular exam: Present: irregular rhythm, RRR, +S1, +S2. Absent: diastolic murmur, gallop, rubs, systolic murmur Additional comments: Irregular heart rate with ventricular rate controlled at less than 100 - GI/Abdominal GI/Abdominal exam: Present: normal bowel sounds, soft, no peritoneal signs. Absent: distended, tenderness - Extremities Exam Extremities exam: Present: warm, radial pulses palpable and symmetrical. Absent: calf tenderness, cyanotic, pedal edema - Neurological Exam Neurological exam: Present: CN II-XII intact, oriented X3, no focal deficits. Absent: pronater drift, facial droop, speech deficit Additional comments: Patient continues with disconjugate gaze. Denies any visual loss. No other motor or sensory deficits noted. States some difficulty with swallowing and has dysphagia diet. Tongue is midline. No facial droop. - Skin Skin exam: Present: dry, intact Internal Medicine: Result - Labs CBC & Chem 7: 05/29/18 05:40 05/29/18 05:40 - ABG Interpretation ABG results: PT/INR, D-dimer PT 14.9 Seconds (9.4-12.1) H 05/29/18 05:40 Consult Discharge Plan - Plan Referrals: Kamla Garcia, COMMERCIAL FOOD INSTRUCTOR [Primary Care Provider] -
[2018-05-30] MEDS ORDERED: Sennosides/Docusate Sodium TABLET PO SCH (09:00)
[2018-05-30] MEDS: traZODone 50 MG TABLET PO SCH (20:16)
[2018-05-30] MEDS: Doxycycline 100 MG CAPSULE PO SCH (20:16)
[2018-05-31] MEDS: Ipratropium/Albuterol Neb 3 ML IH SCH ×4 (03:10→21:43)
[2018-05-31] MEDS: *HR* Heparin 5,000 UNIT/ML VIAL SQ SCH ×2 (05:16→17:51)
[2018-05-31] MEDS: Doxycycline 100 MG CAPSULE PO SCH ×2 (08:45→19:43)
[2018-05-31] MEDS: predniSONE 20 MG TABLET PO SCH (08:45)
[2018-05-31] MEDS: Metoprolol XL (24 HR) Succ 50 MG TAB.ER.24H PO SCH (08:45)
[2018-05-31] MEDS: Furosemide 40 MG TABLET PO SCH (08:45)
[2018-05-31] MEDS: Lisinopril 20 MG TABLET PO SCH (08:45)
[2018-05-31] MEDS: Aspirin Enteric Coated 325 MG Tablet PO SCH (08:45)
[2018-05-31] MEDS: Sennosides/Docusate Sodium TABLET PO SCH ×2 (08:46→19:43)
--- NOTE | 2018-05-31 10:48 | Internal Med Progress Note ---
Addendum entered and electronically signed by Shauna Wills 06/02/18 14:07: I have personally performed a face to face evaluation on this patient. I have reviewed and agree with the care plan. He reports sinus area feeling better on doxycycline and nasal spray. His appetite is improving. Original Note: Date of Encounter: 05/31/18 Time of Encounter: 10:46 - Assessment and plan (1) CVA (cerebral vascular accident) Current Visit: Yes Status: Acute Assessment and plan: No acute issues. 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 As any neurological changes since discharge from hospital. Focal neurological deficits noted on exam. Patient reportedly has been progressing well with physical therapy and will continue with current plan of care. 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 Patient states he feels his respiratory status has improved since his discharge from [facility]. Currently lungs are clear with diminished bases. Patient denies any dyspnea or productive cough. Patient does complain of nasal congestion. We will continue on doxycycline and Flonase. (3) CHF (congestive heart failure) Current Visit: Yes Status: Chronic Assessment and plan: No acute issues. Patient with diminished breath sounds to bases but otherwise no congestion heard. Respiratory effort appears relaxed. Patient denies any chest palpitations or discomforts. Continue with current plan of care and medications. Qualifiers: Heart failure type: unspecified Heart failure chronicity: acute on chronic Qualified Code(s): I50.9 - Heart failure, unspecified (4) Essential hypertension Current Visit: Yes Status: Chronic Assessment and plan: Vital signs remained stable. We will continue with current medications. (5) Constipation Current Visit: Yes Status: Acute Assessment and plan: Continue to constipation. Patient with very small BM yesterday after one time dose of Dulcolax. We will continue with current scheduled laxatives and repeat Dulcolax today. Qualifiers: Constipation type: unspecified constipation type Qualified Code(s): K59.00 - Constipation, unspecified - Time Spent With Patient less than 15 minutes - Subjective Interval history: Patient appears relaxed and currently denies any discomforts or shortness of breath. Patient states that he feels his breathing continues to improve, but states he continues to have slight dyspnea during exertion. Patient denies any productive cough. Patient does state he continues to have nasal congestion. Patient was recently started on doxycycline and Flonase. Patient denies any acute neurological deficits. Patient does continue to complain of slight constipation stating he only had a small BM yesterday after when necessary Dulcolax - Constitutional Vitals: Temp Pulse Resp BP Pulse Ox 97.8 F 69 22 136/71 99 05/31/18 07:07 05/31/18 07:07 05/31/18 09:37 05/31/18 07:07 05/31/18 07:07 General appearance: Present: cooperative, A&O X 3, pleasant, no acute distress, answers questions appropriately - Head Head exam: Present: atraumatic, normocephalic Additional comments: Complaints of nasal congestion. 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 Visual cuts noted - Neck Neck exam general surgery: Present: supple, trachea midline. Absent: lymphadenopathy - Respiratory Respiratory exam: Present: CTAB, rales. Absent: accessory muscle use, rhonchi, wheezes Additional comments: Lungs are clear throughout with fine posterior bibasilar rales heard. No productive cough. Respiratory effort appears relaxed. - Cardiovascular Cardiovascular exam: Present: irregular rhythm, RRR, +S1, +S2. Absent: diastolic murmur, gallop, rubs, systolic murmur Additional comments: History of atrial fibrillation. Heart rate is irregular with controlled ventricular rate less than 100. - GI/Abdominal GI/Abdominal exam: Present: normal bowel sounds, soft, no peritoneal signs. Absent: distended, tenderness - Extremities Exam Extremities exam: Present: warm, radial pulses palpable and symmetrical. Absent: calf tenderness, cyanotic, pedal edema - Neurological Exam Neurological exam: Present: CN II-XII intact, oriented X3, no focal deficits. Absent: pronater drift, facial droop, speech deficit - Skin Skin exam: Present: dry, intact Internal Medicine: Result - Labs CBC & Chem 7: 05/29/18 05:40 05/29/18 05:40 - ABG Interpretation ABG results: PT/INR, D-dimer PT 14.9 Seconds (9.4-12.1) H 05/29/18 05:40 Consult Discharge Plan - Plan Referrals: Kamla Garcia, DAYCARE TEACHER [Primary Care Provider] -
[2018-05-31] MEDS: Fluticasone Propionate Nasal 50 MCG/SPRAY BOTTLE NS SCH (13:27)
[2018-05-31] MEDS: traZODone 50 MG TABLET PO SCH (19:44)
[2018-06-01] MEDS: Ipratropium/Albuterol Neb 3 ML IH SCH ×5 (04:14→21:58)
[2018-06-01] MEDS: *HR* Heparin 5,000 UNIT/ML VIAL SQ SCH ×2 (04:14→17:21)
[2018-06-01] MEDS: Doxycycline 100 MG CAPSULE PO SCH ×2 (08:38→19:44)
[2018-06-01] MEDS: Sennosides/Docusate Sodium TABLET PO SCH ×2 (08:39→19:45)
[2018-06-01] MEDS: Furosemide 40 MG TABLET PO SCH (08:40)
[2018-06-01] MEDS: Metoprolol XL (24 HR) Succ 50 MG TAB.ER.24H PO SCH (08:40)
[2018-06-01] MEDS: predniSONE 20 MG TABLET PO SCH (08:40)
[2018-06-01] MEDS: Lisinopril 20 MG TABLET PO SCH (08:40)
[2018-06-01] MEDS: Aspirin Enteric Coated 325 MG Tablet PO SCH (08:41)
[2018-06-01] MEDS: Fluticasone Propionate Nasal 50 MCG/SPRAY BOTTLE NS SCH (08:49)
[2018-06-01] MEDS ORDERED: Furosemide 40 MG TABLET PO ONE (11:30)
[2018-06-01] MEDS: Lactobacillus 1 EACH CAP.SPRINK PO SCH (12:05)
[2018-06-01] MEDS: Ipratropium/Albuterol Neb 3 ML IH PRN (15:41)
[2018-06-01] MEDS: traZODone 50 MG TABLET PO SCH (19:44)
[2018-06-02] MEDS: *HR* Heparin 5,000 UNIT/ML VIAL SQ SCH ×2 (04:39→16:36)
[2018-06-02] MEDS: Ipratropium/Albuterol Neb 3 ML IH SCH ×4 (04:39→23:23)
[2018-06-02] MEDS: Lactobacillus 1 EACH CAP.SPRINK PO SCH (08:16)
[2018-06-02] MEDS: Doxycycline 100 MG CAPSULE PO SCH ×2 (08:16→21:05)
[2018-06-02] MEDS: Metoprolol XL (24 HR) Succ 50 MG TAB.ER.24H PO SCH (08:16)
[2018-06-02] MEDS: Sennosides/Docusate Sodium TABLET PO SCH ×2 (08:16→21:08)
[2018-06-02] MEDS: Aspirin Enteric Coated 325 MG Tablet PO SCH (08:16)
[2018-06-02] MEDS: predniSONE 20 MG TABLET PO SCH (08:17)
[2018-06-02] MEDS: Lisinopril 20 MG TABLET PO SCH (08:18)
[2018-06-02] MEDS: Furosemide 40 MG TABLET PO SCH (08:18)
[2018-06-02] MEDS: Fluticasone Propionate Nasal 50 MCG/SPRAY BOTTLE NS SCH (08:18)
[2018-06-02] MEDS: Ipratropium/Albuterol Neb 3 ML IH PRN ×2 (09:05→21:06)
--- NOTE | 2018-06-02 14:14 | Internal Med Progress Note ---
Date of Encounter: 06/02/18 Time of Encounter: 10:10 - Subjective Interval history: - Assessment and plan (1) CVA (cerebral vascular accident) Current Visit: Yes Status: Acute Assessment and plan: No acute issues. 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 As any neurological changes since discharge from hospital. Focal neurological deficits noted on exam. Patient reportedly has been progressing well with physical therapy and will continue with current plan of care. Qualifiers: CVA mechanism: thrombosis Precerebral and cerebral artery: middle cerebral artery Laterality of affected vessel: left Qualified Code(s): I63.312 - Cerebral infarction due to thrombosis of left middle cerebral artery (2) COPD exacerbation Current Visit: Yes Status: Chronic Assessment and plan: still some wheeze. Patient states he feels his respiratory status has improved since his discharge from [facility]. HAd occupational resp exposure will increase duoneb frequency as this is helpful to him Patient denies any dyspnea or productive cough. Patient does complain of nasal congestion. We will continue on doxycycline and Flonase. (3) CHF (congestive heart failure) Current Visit: Yes Status: Chronic Assessment and plan: No acute issues. Patient with diminished breath sounds to bases but otherwise no congestion heard. still sob suspect needs more lasix will increase from 60 to 80 mg laisx po continue 20 of K recheck labs renal fun ction has been stable. 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 Patient denies any chest palpitations or discomforts. Continue with current plan of care and medications. Qualifiers: Heart failure type: unspecified Heart failure chronicity: acute on chronic Qualified Code(s): I50.9 - Heart failure, unspecified (4) Essential hypertension Current Visit: Yes Status: Chronic Assessment and plan: Vital signs remained stable. We will continue with current medications. (5) Constipation Current Visit: Yes Status: Acute Assessment and plan: Continue to constipation. Patient started on probiotic improving had BM today . Qualifiers: Constipation type: unspecified constipation type Qualified Code(s): K59.00 - Constipation, unspecified - Time Spent With Patient less than 15 minutes - Subjective Interval history: Patient states he is still very sob on exertion. He had volume overload He is currently on lasix 60 mg day and k 20 meq. will increase to 80 mg po day Patient states that he feels his breathing continues to improve, but states he continues to have slight dyspnea during exertion. Patient denies any productive cough. Patient does state he continues to have nasal congestion. Patient was recently started on doxycycline and Flonase. Patient denies any acute neurological deficits. Patient was feeling constipation and started on probiotic. Had BM today. eating better - Constitutional General appearance: He is looking stronge today more interactive cooperative, A&O X 3, pleasant, no acute distress, answers questions appropriately - Head Head exam: Present: atraumatic, normocephalic Additional comments: Complaints of nasal congestion. 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 - Neck Neck exam general surgery: Present: supple, trachea midline. Absent: lymphadenopathy - Respiratory Respiratory exam: Present: CTAB, rales. Absent: accessory muscle use, rhonchi, wheezes Additional comments: Lungs are clear throughout with fine posterior bibasilar rales heard. No productive cough. Respiratory effort appears relaxed. - Cardiovascular Cardiovascular exam: Present: irregular rhythm, RRR, +S1, +S2. Absent: diastolic murmur, gallop, rubs, systolic murmur Additional comments: History of atrial fibrillation. Heart rate is irregular with controlled ventricular rate less than 100. - GI/Abdominal GI/Abdominal exam: Present: normal bowel sounds, soft, no peritoneal signs. Absent: distended, tenderness - Extremities Exam Extremities exam: Present: warm, radial pulses palpable and symmetrical. Absent: calf tenderness, cyanotic, pedal edema - Neurological Exam Neurological exam: Present: CN II-XII intact, oriented X3, no focal deficits. Absent: pronater drift, facial droop, speech deficit - Skin Skin exam: Present: dry, intact - Constitutional Vitals: Temp Pulse Resp BP Pulse Ox 97.7 F 62 16 133/76 95 06/02/18 07:51 06/02/18 07:51 06/02/18 07:51 06/02/18 07:51 06/02/18 08:42 General appearance: Present: cooperative, A&O X 3, pleasant, no acute distress, answers questions appropriately Internal Medicine: Result - Labs CBC & Chem 7: 05/29/18 05:40 05/29/18 05:40 - ABG Interpretation ABG results: PT/INR, D-dimer PT 14.9 Seconds (9.4-12.1) H 05/29/18 05:40 Consult Discharge Plan - Plan Referrals: Kamla Garcia, PATRICE [Primary Care Provider] -
--- NOTE | 2018-06-02 14:17 | Internal Med Progress Note ---
Date of Encounter: 06/02/18 Time of Encounter: 14:05 - Subjective Interval history: - Assessment and plan (1) CVA (cerebral vascular accident) Current Visit: Yes Status: Acute Assessment and plan: No acute issues. 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 As any neurological changes since discharge from hospital. Focal neurological deficits noted on exam. Patient reportedly has been progressing well with physical therapy and will continue with current plan of care. Qualifiers: CVA mechanism: thrombosis Precerebral and cerebral artery: middle cerebral artery Laterality of affected vessel: left Qualified Code(s): I63.312 - Cerebral infarction due to thrombosis of left middle cerebral artery (2) COPD exacerbation Current Visit: Yes Status: Chronic Assessment and plan: still some wheeze. Patient states he feels his respiratory status has improved since his discharge from [facility]. HAd occupational resp exposure did just increase duoneb frequency as this is helpful to him Patient denies any dyspnea or productive cough. Patient does complain of nasal congestion. We will continue on doxycycline and Flonase. (3) CHF (congestive heart failure) Current Visit: Yes Status: Chronic Assessment and plan: No acute issues. Patient with diminished breath sounds to bases but otherwise no congestion heard. still sob suspect needs more lasix yest did increase from 60 to 80 mg laisx po continue 20 of K recheck labs renal fun ction has been stable. 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 Patient denies any chest palpitations or discomforts. Continue with current plan of care and medications. Qualifiers: Heart failure type: unspecified Heart failure chronicity: acute on chronic Qualified Code(s): I50.9 - Heart failure, unspecified (4) Essential hypertension Current Visit: Yes Status: Chronic Assessment and plan: Vital signs remained stable. We will continue with current medications. (5) Constipation Current Visit: Yes Status: Acute Assessment and plan: Continue to constipation. Patient started on probiotic improving had BM today . Qualifiers: Constipation type: unspecified constipation type Qualified Code(s): K59.00 - Constipation, unspecified - Time Spent With Patient less than 15 minutes - Subjective Interval history: Patient states he is still very sob on exertion. He had volume overload yesterday we did increase to 80 mg po day. he says this was helpful less sob today Patient states that he feels his breathing continues to improve, but states he continues to have slight dyspnea during exertion. Patient denies any productive cough. Patient does state he continues to have nasal congestion. Patient was recently started on doxycycline and Flonase. Patient denies any acute neurological deficits. Patient was feeling constipation and started on probiotic. Had BM today. eating better EXAM General appearance: He is looking stronge today more interactive cooperative, A&O X 3, pleasant, no acute distress, answers questions appropriately - Head Head exam: Present: atraumatic, normocephalic Additional comments: Complaints of nasal congestion. 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 - Neck Neck exam general surgery: Present: supple, trachea midline. Absent: lymphadenopathy - Respiratory Respiratory exam: Present: CTAB, rales. Absent: accessory muscle use, rhonchi, wheezes Additional comments: Lungs are clear throughout with fine posterior bibasilar rales heard. No productive cough. Respiratory effort appears relaxed. - Cardiovascular Cardiovascular exam: Present: irregular rhythm, RRR, +S1, +S2. Absent: diastolic murmur, gallop, rubs, systolic murmur Additional comments: History of atrial fibrillation. Heart rate is irregular with controlled ventricular rate less than 100. - GI/Abdominal GI/Abdominal exam: Present: normal bowel sounds, soft, no peritoneal signs. Absent: distended, tenderness - Extremities Exam Extremities exam: Present: warm, radial pulses palpable and symmetrical. Absent: calf tenderness, cyanotic, pedal edema - Neurological Exam Neurological exam: Present: CN II-XII intact, oriented X3, no focal deficits. Absent: pronater drift, facial droop, speech deficit - Skin Skin exam: Present: dry, intact - Constitutional Vitals: Temp Pulse Resp BP Pulse Ox 97.7 F 62 16 133/76 95 06/02/18 07:51 06/02/18 07:51 06/02/18 07:51 06/02/18 07:51 06/02/18 08:42 General appearance: Present: cooperative, A&O X 3, pleasant, no acute distress, answers questions appropriately Internal Medicine: Result - Labs CBC & Chem 7: 05/29/18 05:40 05/29/18 05:40 - ABG Interpretation ABG results: PT/INR, D-dimer PT 14.9 Seconds (9.4-12.1) H 05/29/18 05:40 Consult Discharge Plan - Plan Referrals: Kamla Garcia, PATRICE [Primary Care Provider] -
[2018-06-02] MEDS: Simethicone 80 MG TAB.CHEW PO PRN (16:36)
[2018-06-02] MEDS: traZODone 50 MG TABLET PO SCH (21:06)
[2018-06-03] MEDS: *HR* Heparin 5,000 UNIT/ML VIAL SQ SCH ×2 (04:16→18:27)
[2018-06-03] MEDS: Ipratropium/Albuterol Neb 3 ML IH SCH ×4 (04:16→23:05)
[2018-06-03 06:27] LABS: Basophils % 0.1 %; Eosinophils # 0.1 K/mcL (0.0-0.6); Eosinophils % 1.6 %; Hematocrit 37.6 % (37.5-50.1); Immature Granulocytes % 0.5 % (0-4); Lymphocytes # 0.7 K/mcL (0.6-4.6); Lymphocytes % 7.8 %; Mean Corpuscular HGB Conc 32.4 g/dL (31.6-35.5); Mean Corpuscular Hemoglobin 29.8 pg (28.0-33.3); Mean Corpuscular Volume 91.7 fL (83.0-100.0); Mean Platelet Volume 9.2 fL (9.4-12.4); Monocytes # 0.5 K/mcL (0.0-1.3); Monocytes % 6.5 %; Platelet Count 215 K/mcL (140-400); Red Cell Distribution Width 14.8 % (11.5-14.5); Segmented Neutrophils % 83.5 %
[2018-06-03 06:50] LABS: BUN/Creatinine Ratio 19 (6-26); Blood Urea Nitrogen 23 mg/dL (8-23); Calcium 9.3 mg/dL (8.6-10.3); Carbon Dioxide 28 mEq/L (23-29); Chloride 103 mEq/L (98-107); Glucose 83 mg/dL (70-105); Osmolality,Calculated 287 (280-300); Sodium 137 mEq/L (136-145); eGFR For Non-African Americans 57 (> 60)
[2018-06-03 06:51] LABS: Hemoglobin 12.2 g/dL (12.9-16.9)
[2018-06-03] MEDS: Sennosides/Docusate Sodium TABLET PO SCH ×2 (09:45→19:38)
[2018-06-03] MEDS: predniSONE 10 MG TABLET PO SCH (09:45)
[2018-06-03] MEDS: Simethicone 80 MG TAB.CHEW PO PRN ×2 (09:45→18:28)
[2018-06-03] MEDS: Doxycycline 100 MG CAPSULE PO SCH ×2 (09:45→19:37)
[2018-06-03] MEDS: Metoprolol XL (24 HR) Succ 50 MG TAB.ER.24H PO SCH (09:45)
[2018-06-03] MEDS: Lactobacillus 1 EACH CAP.SPRINK PO SCH (09:46)
[2018-06-03] MEDS: Furosemide 40 MG TABLET PO SCH (09:46)
[2018-06-03] MEDS: Aspirin Enteric Coated 325 MG Tablet PO SCH (09:47)
[2018-06-03] MEDS: Fluticasone Propionate Nasal 50 MCG/SPRAY BOTTLE NS SCH (09:47)
[2018-06-03] MEDS: Lisinopril 20 MG TABLET PO SCH (09:47)
[2018-06-03] MEDS: Ipratropium/Albuterol Neb 3 ML IH PRN (14:56)
--- NOTE | 2018-06-03 16:24 | Internal Med Progress Note ---
Date of Encounter: 06/03/18 Time of Encounter: 15:18 - Subjective Interval history: - Assessment and plan (1) CVA (cerebral vascular accident) Current Visit: Yes Status: Acute Assessment and plan: No acute issues. 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 As any neurological changes since discharge from hospital. Focal neurological deficits noted on exam. Patient reportedly has been progressing well with physical therapy and will continue with current plan of care. He says he can feel improvment. Qualifiers: CVA mechanism: thrombosis Precerebral and cerebral artery: middle cerebral artery Laterality of affected vessel: left Qualified Code(s): I63.312 - Cerebral infarction due to thrombosis of left middle cerebral artery (2) COPD exacerbation Current Visit: Yes Status: Chronic Assessment and plan: still some wheeze. Patient states he feels his respiratory status has improved since his discharge from [facility]. HAd occupational respiratory exposure did increase duoneb frequency as this is helpful to him sometimes when active he uses q 4 HR treatments. Patient denies any dyspnea or productive cough. Patient does complain of improving sinusitis - nasal congestion. We will continue on doxycycline and Flonase. (3) CHF (congestive heart failure) Current Visit: Yes Status: Chronic Assessment and plan: No acute issues. Patient with diminished breath sounds to bases but otherwise no congestion heard. improvement in sob on higher dose of lasix. Chem panel today good -did increase from 60 to 80 mg laisx po continued on 20 of K rechecked labs renal function has been stable. 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 Patient denies any chest palpitations or discomforts. Continue with current plan of care and medications. Qualifiers: Heart failure type: unspecified Heart failure chronicity: acute on chronic Qualified Code(s): I50.9 - Heart failure, unspecified (4) Essential hypertension Current Visit: Yes Status: Chronic Assessment and plan: Vital signs remained stable. We will continue with current medications. (5) Constipation Current Visit: Yes Status: Acute Assessment and plan: Continue to constipation. Patient started on probiotic improving having daily BM 2 days . Qualifiers: Constipation type: unspecified constipation type Qualified Code(s): K59.00 - Constipation, unspecified - Time Spent With Patient less than 15 minutes - Subjective Interval history: Patient states he is still very sob on exertion. He had volume overload Recently did increase to 80 mg po day. he says this was helpful less sob today K is 4 today CRE is good HB has improved from 10 to 12 He has improved nutritional intake. Patient states that he feels his breathing continues to improve, but states he continues to have slight dyspnea during exertion. Patient denies any productive cough. Patient does states he has improvement in nasal congestion. Patient taking doxycycline and Flonase. Patient denies any acute neurological deficits. Patient was feeling constipation and started on probiotic. BM better, eating better EXAM General appearance: He is moving more and sitting up in chair. cooperative, A&O X 3, pleasant, no acute distress, answers questions appropriately - Head Head exam: Present: atraumatic, normocephalic Additional comments: Complaints of nasal congestion. 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 - Neck Neck exam general surgery: Present: supple, trachea midline. Absent: lymphadenopathy - Respiratory Respiratory exam: Present: CTAB, rales. Absent: accessory muscle use, rhonchi, wheezes Additional comments: Lungs are clear throughout with fine posterior bibasilar rales heard. No produc tive cough. Respiratory effort appears relaxed. - Cardiovascular Cardiovascular exam: Present: irregular rhythm, RRR, +S1, +S2. Absent: diastolic murmur, gallop, rubs, systolic murmur Additional comments: History of atrial fibrillation. Heart rate is irregular with controlled ventricular rate less than 100. - GI/Abdominal GI/Abdominal exam: Present: normal bowel sounds, soft, no peritoneal signs. Absent: distended, tenderness - Extremities Exam Extremities exam: Present: warm, radial pulses palpable and symmetrical. Absent: calf tenderness, cyanotic, pedal edema - Neurological Exam Neurological exam: Present: CN II-XII intact, oriented X3, no focal deficits. Absent: pronater drift, facial droop, speech deficit - Skin Skin exam: Present: dry, intact - Constitutional Vitals: Temp Pulse Resp BP Pulse Ox 97.7 F 69 20 115/64 98 06/03/18 11:20 06/03/18 11:20 06/03/18 11:20 06/03/18 11:20 06/03/18 11:20 General appearance: Present: cooperative, A&O X 3, pleasant, no acute distress, answers questions appropriately Internal Medicine: Result - Labs CBC & Chem 7: 06/03/18 06:10 06/03/18 06:10 Labs: Short CBC 06/03/18 Range/Units 06:10 WBC 8.4 (4.3-11.1) K/mcL Hgb 12.2 L D (12.9-16.9) g/dL Hct 37.6 (37.5-50.1) % Plt Count 215 (140-400) K/mcL Neutrophils # 7.0 (1.6-8.9) K/mcL BMP 06/03/18 06:10 Sodium 137 Potassium 4.0 Chloride 103 Carbon Dioxide 28 BUN 23 Creatinine 1.23 Glucose 83 Calcium 9.3 - ABG Interpretation ABG results: PT/INR, D-dimer PT 14.9 Seconds (9.4-12.1) H 05/29/18 05:40 Consult Discharge Plan - Plan Referrals: Kamla Garcia, CROSS CUT SAW OPERATOR [Primary Care Provider] -
[2018-06-03] MEDS: traZODone 50 MG TABLET PO SCH (19:36)
[2018-06-04] MEDS: *HR* Heparin 5,000 UNIT/ML VIAL SQ SCH ×2 (05:46→17:45)
[2018-06-04] MEDS: Ipratropium/Albuterol Neb 3 ML IH SCH ×4 (05:46→23:56)
[2018-06-04] MEDS: Lisinopril 20 MG TABLET PO SCH (09:26)
[2018-06-04] MEDS: Lactobacillus 1 EACH CAP.SPRINK PO SCH (09:26)
[2018-06-04] MEDS: Furosemide 40 MG TABLET PO SCH (09:28)
[2018-06-04] MEDS: predniSONE 10 MG TABLET PO SCH (09:28)
[2018-06-04] MEDS: Doxycycline 100 MG CAPSULE PO SCH ×2 (09:29→20:04)
[2018-06-04] MEDS: Metoprolol XL (24 HR) Succ 50 MG TAB.ER.24H PO SCH (09:29)
[2018-06-04] MEDS: Aspirin Enteric Coated 325 MG Tablet PO SCH (09:29)
[2018-06-04] MEDS: Sennosides/Docusate Sodium TABLET PO SCH ×2 (09:30→20:04)
[2018-06-04] MEDS: Ipratropium/Albuterol Neb 3 ML IH PRN ×2 (09:39→20:05)
[2018-06-04] MEDS: Fluticasone Propionate Nasal 50 MCG/SPRAY BOTTLE NS SCH (09:43)
--- NOTE | 2018-06-04 13:10 | Internal Med Progress Note ---
Date of Encounter: 06/04/18 Time of Encounter: 12:15 - Subjective Interval history: - Assessment and plan (1) CVA (cerebral vascular accident) Current Visit: Yes Status: Acute Assessment and plan: No acute issues. 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 As any neurological changes since discharge from hospital. Focal neurological deficits noted on exam. Patient reportedly has been progressing well with physical therapy and will continue with current plan of care. He says he can feel improvment. Qualifiers: CVA mechanism: thrombosis Precerebral and cerebral artery: middle cerebral artery Laterality of affected vessel: left Qualified Code(s): I63.312 - Cerebral infarction due to thrombosis of left middle cerebral artery (2) COPD exacerbation Current Visit: Yes Status: Chronic Assessment and plan: still some wheeze. Patient states he feels his respiratory status has improved since his discharge from [facility]. HAd occupational respiratory exposure did increase duoneb frequency as this is helpful to him sometimes when active he uses q 4 HR treatments. Patient denies any dyspnea or productive cough. Patient does complain of improving sinusitis - nasal congestion. We will continue on doxycycline and Flonase. (3) CHF (congestive heart failure) Current Visit: Yes Status: Chronic Assessment and plan: No acute issues. Patient with diminished breath sounds to bases but otherwise no congestion heard. improvement in sob on higher dose of lasix. Chem panel today good -did increase from 60 to 80 mg laisx po continued on 20 of K rechecked labs renal function has been stable. 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 Patient denies any chest palpitations or discomforts. Continue with current plan of care and medications. Qualifiers: Heart failure type: unspecified Heart failure chronicity: acute on chronic Qualified Code(s): I50.9 - Heart failure, unspecified (4) Essential hypertension Current Visit: Yes Status: Chronic Assessment and plan: Vital signs remained stable. We will continue with current medications. (5) Constipation Current Visit: Yes Status: Acute Assessment and plan: Continue to constipation. Patient started on probiotic improving having better bm now will check chem rawls . Qualifiers: Constipation type: unspecified constipation type Qualified Code(s): K59.00 - Constipation, unspecified - Time Spent With Patient less than 15 minutes - Subjective Interval history: Patient states he is still somewhat sob on exertion, notes mild improvement. He likes to use duonebs more frequent when active. . He had volume overload and improved now on increase to 80 mg po day. still has chronic loose clear sputum cough but some improved. finishing treat for sinsusitis. Says feels better over left sinus area. K and CRE is good HB has improved from 10 to 12 on recent lab. He has improved nutritional intake. Patient taking doxycycline and Flonase. Patient denies any acute neurological deficits. Patient was feeling constipation and started on probiotic. says not contipated anymore EXAM General appearance: He is moving more and sitting up in chair. eating much better cooperative, A&O X 3, pleasant, no acute distress, answers questions appropriately - Head Head exam: Present: atraumatic, normocephalic Additional comments: Complaints of nasal congestion. 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 - Neck Neck exam general surgery: Present: supple, trachea midline. Absent: lymphadenopathy - Respiratory Respiratory exam: Present: CTAB, rales. Absent: accessory muscle use, rhonchi, wheezes Additional comments: Lungs are clear throughout with fine posterior bibasilar rales heard. No productive cough. Respiratory effort appears relaxed. - Cardiovascular Cardiovascular exam: Present: irregular rhythm, RRR, +S1, +S2. Absent: diastolic murmur, gallop, rubs, systolic murmur Additional comments: History of atrial fibrillation. Heart rate is irregular with controlled ventricular rate less than 100. - GI/Abdominal GI/Abdominal exam: Present: normal bowel sounds, soft, no peritoneal signs. Absent: distended, tenderness - Extremities Exam Extremities exam: Present: warm, radial pulses palpable and symmetrical. Absent: calf tenderness, cyanotic, pedal edema - Neurological Exam Neurological exam: Present: CN II-XII intact, oriented X3, no focal deficits. Absent: pronater drift, facial droop, speech deficit - Skin Skin exam: Present: dry, intact - Constitutional Vitals: Temp Pulse Resp BP Pulse Ox 97.8 F 71 18 149/69 96 06/04/18 08:00 06/04/18 08:00 06/04/18 08:00 06/04/18 08:00 06/04/18 09:00 General appearance: Present: cooperative, A&O X 3, pleasant, no acute distress, answers questions appropriately Internal Medicine: Result - Labs CBC & Chem 7: 06/03/18 06:10 06/03/18 06:10 - ABG Interpretation ABG results: PT/INR, D-dimer PT 14.9 Seconds (9.4-12.1) H 05/29/18 05:40 Consult Discharge Plan - Plan Referrals: Kamla Garcia, NAIL WELTER [Primary Care Provider] -
[2018-06-04] MEDS: traZODone 50 MG TABLET PO SCH (20:04)
[2018-06-05] MEDS: Ipratropium/Albuterol Neb 3 ML IH SCH ×4 (05:50→21:57)
[2018-06-05] MEDS: *HR* Heparin 5,000 UNIT/ML VIAL SQ SCH ×2 (05:50→17:58)
[2018-06-05] MEDS: Furosemide 40 MG TABLET PO SCH (08:22)
[2018-06-05] MEDS: Doxycycline 100 MG CAPSULE PO SCH ×2 (08:22→21:57)
[2018-06-05] MEDS: Aspirin Enteric Coated 325 MG Tablet PO SCH (08:22)
[2018-06-05] MEDS: Fluticasone Propionate Nasal 50 MCG/SPRAY BOTTLE NS SCH (08:22)
[2018-06-05] MEDS: Lactobacillus 1 EACH CAP.SPRINK PO SCH (08:22)
[2018-06-05] MEDS: predniSONE 10 MG TABLET PO SCH (08:22)
[2018-06-05] MEDS: Metoprolol XL (24 HR) Succ 50 MG TAB.ER.24H PO SCH (08:23)
[2018-06-05] MEDS: Sennosides/Docusate Sodium TABLET PO SCH (08:23)
[2018-06-05] MEDS: Lisinopril 20 MG TABLET PO SCH (08:23)
[2018-06-05] MEDS: Ipratropium/Albuterol Neb 3 ML IH PRN (08:42)
--- NOTE | 2018-06-05 10:36 | Internal Med Progress Note ---
Addendum entered and electronically signed by Kamerno Ceja MD 06/05/18 13:14: I have personally performed a face to face evaluation on this patient. I have r eviewed and agree with the care plan. History and Exam by me shows: Patient is without complaint. He notes that his bowels have been "exploding" on him, 3 or 4 times over the last couple of days. Nursing states that he has been incontinent of stool and would like to discontinue senna. I agreed. Patient is relieved to hear that his CAT scan is without acute process. This was apparently done because Dr. Wills felt that he might have silicosis. He had no acute symptoms except his multiple breathing problems. Discussed care with other providers and/or nursing. Patient has no complaint of chest discomfort, dyspnea, orthopnea, palpitations, nausea or vomiting, constipation or diarrhea, other changes in bowel habits, difficulty with urination, rash or itching, or other new complaints, except as mentioned above. Review of systems is otherwise negative. Examination: (Except as mentioned above): General: In no apparent distress. Alert and oriented 3. Nondiaphoretic. Head: Atraumatic and normocephalic. Respiratory: No use of accessory muscles. Lungs have diffuse sonorous rhonchi as before without rales. Normal airflow, for patient. Cardiovascular: Regular rate and rhythm without murmur appreciated. Abdomen: Bowel sounds are normal. No hepatosplenomegaly mass or tenderness appreciated. Obese and therefore difficult to palpate deeply. Patient is examined upright in chair and this also limits exam. Extremities: No cyanosis clubbing or edema. Skin: Warm and non-diaphoretic with no new lesions noted. Original Note: Date of Encounter: 06/05/18 Time of Encounter: 10:34 - Assessment and plan (1) CVA (cerebral vascular accident) Current Visit: Yes Status: Acute Assessment and plan: No acute issues. 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 Denies any neurological changes since discharge from hospital. No focal neurological deficits noted on exam. Patient reportedly has been progressing well with physical therapy and will continue with current plan of care. 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 Patient states he feels his respiratory status has improved since his discharge from [facility]. Currently lungs are clear with diminished bases. Patient denies any dyspnea while at rest, but states slight dyspnea during ambulation. No productive cough. Patient does complain of nasal congestion. We will continue on doxycycline and Flonase. (3) CHF (congestive heart failure) Current Visit: Yes Status: Chronic Assessment and plan: No acute issues. Patient with diminished breath sounds to bases but otherwise no congestion heard. Respiratory effort appears relaxed. Patient denies any chest palpitations or discomforts. Continue with current plan of care and medications. Qualifiers: Heart failure type: unspecified Heart failure chronicity: acute on chronic Qualified Code(s): I50.9 - Heart failure, unspecified (4) Essential hypertension Current Visit: Yes Status: Chronic Assessment and plan: Vital signs remained stable. We will continue with current medications. - Time Spent With Patient less than 15 minutes - Subjective Interval history: Patient appears relaxed and currently denies any discomforts. Patient states no dyspnea while at rest but states he continues to have slight dyspnea after exertion when ambulating. Denies any productive cough. Afebrile. Patient states that physical therapy is progressing well. Recent CT of the chest showed no acute process. - Constitutional Vitals: Temp Pulse Resp BP Pulse Ox 97.9 F 70 20 126/77 96 06/05/18 06:35 06/05/18 06:35 06/05/18 08:44 06/05/18 06:35 06/05/18 08:44 General appearance: Present: cooperative, A&O X 3, pleasant, no acute distress, answers questions appropriately - Head Head exam: Present: atraumatic, normocephalic - Eye Eye exam: Present: PERRL, conjuntiva pink, sclera anicteric Pupils: Present: PERRL Additional comments: Disconjugate gaze - Neck Neck exam general surgery: Present: supple, trachea midline. Absent: lymphadenopathy - Respiratory Respiratory exam: Present: CTAB. Absent: accessory muscle use, rales, rhonchi, wheezes Additional comments: Lungs are clear throughout with diminished basilar ramirez. Respiratory effort appears relaxed. No productive cough. - Cardiovascular Cardiovascular exam: Present: RRR, +S1, +S2. Absent: diastolic murmur, gallop, rubs, systolic murmur - GI/Abdominal GI/Abdominal exam: Present: normal bowel sounds, soft, no peritoneal signs. Absent: distended, tenderness - Extremities Exam Extremities exam: Present: warm, radial pulses palpable and symmetrical. Absent: calf tenderness, cyanotic, pedal edema - Neurological Exam Neurological exam: Present: CN II-XII intact, oriented X3, no focal deficits. Absent: pronater drift, facial droop, speech deficit Additional comments: Disconjugate gaze - Skin Skin exam: Present: dry, intact Internal Medicine: Result - Labs CBC & Chem 7: 06/03/18 06:10 06/03/18 06:10 - ABG Interpretation ABG results: PT/INR, D-dimer PT 14.9 Seconds (9.4-12.1) H 05/29/18 05:40 - Impressions Impressions Chest CT 06/04/18 13:12 IMPRESSION: No acute abnormality. Probable cirrhosis. D/ / 06/04/2018 14:27:48 Jass Walters MD / nikki Interpreting Provider: Jass Walters MD Consult Discharge Plan - Plan Referrals: Kamla Garcia CNP [Primary Care Provider] -
[2018-06-05 14:09] LABS: INR 1.2; Prothrombin Time 13.9 Seconds (9.4-12.1)
[2018-06-05] MEDS: traZODone 50 MG TABLET PO SCH (21:57)
[2018-06-06] MEDS: Acetaminophen 325 MG TABLET PO PRN (02:45)
[2018-06-06] MEDS: *HR* Heparin 5,000 UNIT/ML VIAL SQ SCH ×2 (05:55→17:58)
[2018-06-06] MEDS: Ipratropium/Albuterol Neb 3 ML IH SCH ×4 (05:55→21:35)
[2018-06-06 06:19] LABS: Alanine Aminotransferase 25 Units/L (7-52); Albumin 3.5 g/dL (3.5-5.7); Albumin/Globulin Ratio 1.6 (1.1-2.2); Alkaline Phosphatase 47 Units/L (34-104); Aspartate Amino Transferase 16 Units/L (13-39); BUN/Creatinine Ratio 17 (6-26); Bilirubin,Total 0.5 mg/dL (0.3-1.0); Blood Urea Nitrogen 20 mg/dL (8-23); Calcium 9.1 mg/dL (8.6-10.3); Carbon Dioxide 29 mEq/L (23-29); Chloride 103 mEq/L (98-107); Globulin 2.2 g/dL (2.4-3.5); Glucose 87 mg/dL (70-105); Osmolality,Calculated 288 (280-300); Potassium 4.5 mEq/L (3.5-5.1); Sodium 138 mEq/L (136-145); Total Protein 5.7 g/dL (6.4-8.9); eGFR For Non-African Americans 59 (> 60)
[2018-06-06] MEDS: Lisinopril 20 MG TABLET PO SCH (08:31)
[2018-06-06] MEDS: Furosemide 40 MG TABLET PO SCH (08:31)
[2018-06-06] MEDS: Doxycycline 100 MG CAPSULE PO SCH ×2 (08:31→20:06)
[2018-06-06] MEDS: Aspirin Enteric Coated 325 MG Tablet PO SCH (08:32)
[2018-06-06] MEDS: Fluticasone Propionate Nasal 50 MCG/SPRAY BOTTLE NS SCH (08:32)
[2018-06-06] MEDS: Metoprolol XL (24 HR) Succ 50 MG TAB.ER.24H PO SCH (08:32)
[2018-06-06] MEDS: Lactobacillus 1 EACH CAP.SPRINK PO SCH (08:32)
[2018-06-06] MEDS: Ipratropium/Albuterol Neb 3 ML IH PRN (08:48)
--- NOTE | 2018-06-06 09:33 | Internal Med Progress Note ---
Addendum entered and electronically signed by Kameron Ceja MD 06/06/18 10:39: I have personally performed a face to face evaluation on this patient. I have r eviewed and agree with the care plan. History and Exam by me shows: Patient without complaint. He is enjoying therapy. He denies dyspnea during therapy, recently. He states his bowels are moving well and nursing notes that he is moving bowels several times over the last few days. For this reason, they wanted his 7 discontinued which we stopped. Discussed care with other providers and/or nursing. Patient has no complaint of chest discomfort, dyspnea, orthopnea, palpitations, nausea or vomiting, constipation or diarrhea, other changes in bowel habits, difficulty with urination, rash or itching, or other new complaints, except as mentioned above. Review of systems is otherwise negative. Examination: (Except as mentioned above): General: In no apparent distress. Alert and oriented 3. Nondiaphoretic. He is on oxygen at 2 L per nasal cannula. Head: Atraumatic and normocephalic. Respiratory: No use of accessory muscles. Lungs are clear throughout. Normal airflow. Cardiovascular: Regular rate and rhythm without murmur appreciated. Abdomen: Bowel sounds are normal. No hepatosplenomegaly mass or tenderness appreciated. Obese and therefore difficult to palpate deeply. Patient is examined upright in chair and this also limits exam. Extremities: No cyanosis clubbing or edema. Skin: Warm and non-diaphoretic with no new lesions noted. He is doing well and will continue with therapies as planned. Oxygenation is stable per his baseline. Original Note: Date of Encounter: 06/06/18 Time of Encounter: 09:31 - Assessment and plan (1) CVA (cerebral vascular accident) Current Visit: Yes Status: Acute Assessment and plan: No acute issues. Patient with chronic disconjugate gaze. Denies any neurological changes since discharge from hospital. No acute focal neurological deficits noted on exam. Patient reportedly has been progressing well with physical therapy and will continue with current plan of care. 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 Patient states he feels his respiratory status has improved since his discharge from [facility]. Currently lungs are clear with diminished bases. Patient denies any dyspnea while at rest, but states continued slight dyspnea during ambulation. Productive cough with small amount of thick white sputum. (3) CHF (congestive heart failure) Current Visit: Yes Status: Chronic Assessment and plan: No acute issues. Patient with diminished breath sounds to bases but otherwise no congestion heard. Respiratory effort appears relaxed. Patient denies any chest palpitations or discomforts. Continue with current plan of care and medications. Qualifiers: Heart failure type: unspecified Heart failure chronicity: acute on chronic Qualified Code(s): I50.9 - Heart failure, unspecified (4) Essential hypertension Current Visit: Yes Status: Chronic Assessment and plan: Vital signs remained stable. We will continue with current medications. - Time Spent With Patient less than 15 minutes - Subjective Interval history: Patient appears relaxed and currently denies any discomforts. Patient states no dyspnea while at rest but states he continues to have slight dyspnea after exertion when ambulating. Denies any productive cough. Afebrile. Patient states that physical therapy is progressing well. Recent CT of the chest showed no acute process. Patient states that he had loose stools yesterday, but has not had a BM yet today. - Constitutional Vitals: Temp Pulse Resp BP Pulse Ox 97.9 F 70 16 124/67 98 06/06/18 07:35 06/06/18 07:35 06/06/18 07:35 06/06/18 07:35 06/06/18 07:35 General appearance: Present: cooperative, A&O X 3, pleasant, no acute distress, answers questions appropriately - Head Head exam: Present: atraumatic, normocephalic - Eye Eye exam: Present: PERRL, conjuntiva pink, sclera anicteric Pupils: Present: PERRL Additional comments: Chronic disconjugate gaze. No visual cut noted - Neck Neck exam general surgery: Present: supple, trachea midline. Absent: lymphadenopathy - Respiratory Respiratory exam: Present: CTAB. Absent: accessory muscle use, rales, rhonchi, wheezes Additional comments: Lungs are clear throughout upper ramirez with diminished basis. Respiratory effort appears relaxed. Productive cough with thick white sputum received - Cardiovascular Cardiovascular exam: Present: RRR, +S1, +S2. Absent: diastolic murmur, gallop, rubs, systolic murmur - GI/Abdominal GI/Abdominal exam: Present: normal bowel sounds, soft, no peritoneal signs. Absent: distended, tenderness - Extremities Exam Extremities exam: Present: warm, radial pulses palpable and symmetrical. Absent: calf tenderness, cyanotic, pedal edema - Neurological Exam Neurological exam: Present: CN II-XII intact, oriented X3, no focal deficits. Absent: pronater drift, facial droop, speech deficit - Skin Skin exam: Present: dry, intact Internal Medicine: Result - Labs CBC & Chem 7: 06/03/18 06:10 06/06/18 05:40 Labs: BMP 06/06/18 05:40 Sodium 138 Potassium 4.5 Chloride 103 Carbon Dioxide 29 BUN 20 Creatinine 1.20 Glucose 87 Calcium 9.1 Liver Function 06/06/18 Range/Units 05:40 Total Bilirubin 0.5 (0.3-1.0) mg/dL AST 16 (13-39) Units/L ALT 25 (7-52) Units/L Alkaline Phosphatase 47 (34-104) Units/L Albumin 3.5 (3.5-5.7) g/dL - ABG Interpretation ABG results: PT/INR, D-dimer PT 13.9 Seconds (9.4-12.1) H 06/05/18 13:56 Consult Discharge Plan - Plan Referrals: Kamla Garcia CNP [Primary Care Provider] -
[2018-06-06] MEDS: traZODone 50 MG TABLET PO SCH (20:05)
[2018-06-07] MEDS: Acetaminophen 325 MG TABLET PO PRN (03:38)
[2018-06-07] MEDS: Ipratropium/Albuterol Neb 3 ML IH SCH ×4 (03:45→23:29)
[2018-06-07] MEDS: *HR* Heparin 5,000 UNIT/ML VIAL SQ SCH ×2 (05:12→18:20)
--- NOTE | 2018-06-07 09:04 | Internal Med Progress Note ---
Addendum entered and electronically signed by Kameron Ceja MD 06/07/18 14:34: I have personally performed a face to face evaluation on this patient. I have r eviewed and agree with the care plan. History and Exam by me shows: Patient is without complaint. He is doing reasonably well with therapy, he feels. He states that he moved his bowels but not as explosively as before. He feels that his breathing is reasonably stable but he needs his breathing t reatments on a regular basis. Discussed care with other providers and/or nursing. Patient has no complaint of chest discomfort, dyspnea, orthopnea, palpitations, nausea or vomiting, constipation or diarrhea, other changes in bowel habits, difficulty with urination, rash or itching, or other new complaints, except as mentioned above. Review of systems is otherwise negative. Examination: (Except as mentioned above): General: In no apparent distress. Alert and oriented 3. Nondiaphoretic. He is on 2 L by nasal cannula. Head: Atraumatic and normocephalic. Respiratory: No use of accessory muscles. Lungs are clear throughout. Normal airflow. Cardiovascular: Regular rate and rhythm without murmur appreciated. Abdomen: Bowel sounds are normal. No hepatosplenomegaly mass or tenderness appreciated. Obese and therefore difficult to palpate deeply. Patient is examined upright in chair and this also limits exam. Extremities: No cyanosis clubbing or edema. Skin: Warm and non-diaphoretic with no new lesions noted. Original Note: Date of Encounter: 06/07/18 Time of Encounter: 08:57 - Assessment and plan (1) CVA (cerebral vascular accident) Current Visit: Yes Status: Acute Assessment and plan: No acute issues. Patient with chronic disconjugate gaze. Denies any neurolo gical changes since discharge from hospital. No acute focal neurological deficits noted on exam. Patient reportedly has been progressing well with physical therapy and will continue with current plan of care. 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 Patient states he feels his respiratory status has improved since his discharge from [facility]. Currently lungs are clear with diminished bases. Patient denies any dyspnea while at rest, but states continued slight dyspnea during ambulation. Productive cough with small amount of thick white sputum. (3) CHF (congestive heart failure) Current Visit: Yes Status: Chronic Assessment and plan: No acute issues. Patient with diminished breath sounds to bases but otherwise no congestion heard. Respiratory effort appears relaxed. Patient denies any chest palpitations or discomforts. Continue with current plan of care and medications. Qualifiers: Heart failure type: unspecified Heart failure chronicity: acute on chronic Qualified Code(s): I50.9 - Heart failure, unspecified (4) Essential hypertension Current Visit: Yes Status: Chronic Assessment and plan: Vital signs remained stable. We will continue with current medications. - Time Spent With Patient less than 15 minutes - Subjective Interval history: Patient appears relaxed and currently denies any discomforts. Patient states no dyspnea while at rest but states he continues to have slight dyspnea after exertion when ambulating. Denies any productive cough. Afebrile. Patient states that physical therapy is progressing well. Patient denies any diarrhea at this time. - Constitutional Vitals: Temp Pulse Resp BP Pulse Ox 97.9 F 67 16 113/58 90 06/06/18 20:18 06/06/18 20:18 06/06/18 20:18 06/06/18 20:18 06/07/18 04:00 General appearance: Present: cooperative, A&O X 3, pleasant, no acute distress, answers questions appropriately - Head Head exam: Present: atraumatic, normocephalic - Eye Eye exam: Present: PERRL, conjuntiva pink, sclera anicteric Pupils: Present: PERRL Additional comments: Chronic disconjugate. No visual cut noted on exam - Neck Neck exam general surgery: Present: supple, trachea midline. Absent: lymphadenopathy - Respiratory Respiratory exam: Present: CTAB. Absent: accessory muscle use, rales, rhonchi, wheezes Additional comments: Lungs are clear throughout upper ramirez with diminished bases. Respiratory effort appears relaxed. No productive cough noted - Cardiovascular Cardiovascular exam: Present: RRR, +S1, +S2. Absent: diastolic murmur, gallop, rubs, systolic murmur - GI/Abdominal GI/Abdominal exam: Present: normal bowel sounds, soft, no peritoneal signs. Absent: distended, tenderness - Extremities Exam Extremities exam: Present: warm, radial pulses palpable and symmetrical. Absent: calf tenderness, cyanotic, pedal edema - Neurological Exam Neurological exam: Present: CN II-XII intact, oriented X3, no focal deficits. Absent: pronater drift, facial droop, speech deficit - Skin Skin exam: Present: dry, intact Internal Medicine: Result - Labs CBC & Chem 7: 06/03/18 06:10 06/06/18 05:40 - ABG Interpretation ABG results: PT/INR, D-dimer PT 13.9 Seconds (9.4-12.1) H 06/05/18 13:56 Consult Discharge Plan - Plan Referrals: Kamla Garcia, PRODUCT MANAGEMENT ANALYST [Primary Care Provider] -
[2018-06-07] MEDS: Furosemide 40 MG TABLET PO SCH (10:38)
[2018-06-07] MEDS: Lactobacillus 1 EACH CAP.SPRINK PO SCH (10:39)
[2018-06-07] MEDS: Lisinopril 20 MG TABLET PO SCH (10:39)
[2018-06-07] MEDS: Doxycycline 100 MG CAPSULE PO SCH ×2 (10:39→20:41)
[2018-06-07] MEDS: Aspirin Enteric Coated 325 MG Tablet PO SCH (10:39)
[2018-06-07] MEDS: Fluticasone Propionate Nasal 50 MCG/SPRAY BOTTLE NS SCH (10:39)
[2018-06-07] MEDS: Metoprolol XL (24 HR) Succ 50 MG TAB.ER.24H PO SCH (10:40)
[2018-06-07] MEDS: Ipratropium/Albuterol Neb 3 ML IH PRN (14:28)
[2018-06-07] MEDS: traZODone 50 MG TABLET PO SCH (20:41)
[2018-06-08] MEDS: Ipratropium/Albuterol Neb 3 ML IH SCH ×4 (05:41→20:39)
[2018-06-08] MEDS: *HR* Heparin 5,000 UNIT/ML VIAL SQ SCH ×2 (05:42→17:30)
[2018-06-08] MEDS: Lisinopril 20 MG TABLET PO SCH (08:06)
[2018-06-08] MEDS: Doxycycline 100 MG CAPSULE PO SCH ×2 (08:06→19:57)
[2018-06-08] MEDS: Metoprolol XL (24 HR) Succ 50 MG TAB.ER.24H PO SCH (08:07)
[2018-06-08] MEDS: Lactobacillus 1 EACH CAP.SPRINK PO SCH (08:07)
[2018-06-08] MEDS: Furosemide 40 MG TABLET PO SCH (08:07)
[2018-06-08] MEDS: Aspirin Enteric Coated 325 MG Tablet PO SCH (08:07)
[2018-06-08] MEDS: Fluticasone Propionate Nasal 50 MCG/SPRAY BOTTLE NS SCH (08:08)
--- NOTE | 2018-06-08 13:55 | Internal Med Progress Note ---
Date of Encounter: 06/08/18 Time of Encounter: 11:30 - Assessment and plan (1) CVA (cerebral vascular accident) Current Visit: Yes Status: Acute Assessment and plan: Patient is making good progress with therapies. Will continue on and follow with them. He is to have a modified barium swallow on Sunday. Qualifiers: CVA mechanism: thrombosis Precerebral and cerebral artery: middle cerebral artery Laterality of affected vessel: left Qualified Code(s): I63.312 - Cerebral infarction due to thrombosis of left middle cerebral artery (2) Constipation Current Visit: Yes Status: Acute Assessment and plan: Clinically stable on current regimen. Qualifiers: Constipation type: unspecified constipation type Qualified Code(s): K59.00 - Constipation, unspecified (3) Acute bronchitis with COPD Current Visit: No Status: Acute Assessment and plan: This is clinically stable but with slightly worsening respiratory exam. Will follow. Patient seems to be tolerating well and this may be his baseline. (4) CHF (congestive heart failure) Current Visit: Yes Status: Chronic Assessment and plan: This is clinically stable, as well, and we will need to intermittently watch lab to make sure we are not over diuresing and his renal function is in balance as possible. Qualifiers: Heart failure type: unspecified Heart failure chronicity: acute on chronic Qualified Code(s): I50.9 - Heart failure, unspecified (5) Essential hypertension Current Visit: Yes Status: Chronic Assessment and plan: Clinically stable. We will continue home regimen and follow. - Subjective Interval history: Patient is doing fine without problems. He feels like he had good therapy session this morning and he was pleased with his fatigue (little) with therapy. Bowels are moving but "not too much." Patient has no complaint of chest discomfort, dyspnea, orthopnea, palpitations, nausea or vomiting, constipation or diarrhea, other changes in bowel habits, difficulty with urination, rash or itching, or other new complaints, except as mentioned above. Review of systems is otherwise negative. I discussed management of her care with nursing staff. - Constitutional Vitals: Temp Pulse Resp BP Pulse Ox 98.7 F 61 15 117/67 96 06/08/18 07:25 06/08/18 07:25 06/08/18 07:25 06/08/18 07:25 06/08/18 07:25 Exam: Examination: (Except as mentioned above): General: In no apparent distress. Alert and oriented 3. Nondiaphoretic. Patient is on 2 L of oxygen by nasal cannula. Head: Atraumatic and normocephalic. Respiratory: No use of accessory muscles. Lungs are clear throughout, except for right basilar rhonchi which are sonorous, not sibilant. Normal airflow. Cardiovascular: Regular rate and rhythm without murmur appreciated. Abdomen: Bowel sounds are normal. No hepatosplenomegaly mass or tenderness appreciated. Obese and therefore difficult to palpate deeply.Patient is examined upright in chair and this also limits exam. Extremities: No cyanosis clubbing or edema. Skin: Warm and non-diaphoretic with no new lesions noted. Internal Medicine: Result - Labs CBC & Chem 7: 06/03/18 06:10 06/06/18 05:40 - ABG Interpretation ABG results: PT/INR, D-dimer PT 13.9 Seconds (9.4-12.1) H 06/05/18 13:56 Consult Discharge Plan - Plan Referrals: Kamla Garcia, CONSTRUCTION OPERATIONS MANAGER [Primary Care Provider] -
[2018-06-08] MEDS: traZODone 50 MG TABLET PO SCH (19:57)
[2018-06-08] MEDS: Ipratropium/Albuterol Neb 3 ML IH PRN (20:38)
[2018-06-09] MEDS: Ipratropium/Albuterol Neb 3 ML IH SCH ×4 (04:41→22:52)
[2018-06-09] MEDS: *HR* Heparin 5,000 UNIT/ML VIAL SQ SCH ×2 (04:53→16:26)
[2018-06-09] MEDS: Furosemide 40 MG TABLET PO SCH (09:00)
[2018-06-09] MEDS: Lisinopril 20 MG TABLET PO SCH (09:01)
[2018-06-09] MEDS: Lactobacillus 1 EACH CAP.SPRINK PO SCH (09:02)
[2018-06-09] MEDS: Aspirin Enteric Coated 325 MG Tablet PO SCH (09:03)
[2018-06-09] MEDS: Metoprolol XL (24 HR) Succ 50 MG TAB.ER.24H PO SCH (09:03)
[2018-06-09] MEDS: Doxycycline 100 MG CAPSULE PO SCH (09:04)
[2018-06-09] MEDS: Fluticasone Propionate Nasal 50 MCG/SPRAY BOTTLE NS SCH (09:04)
[2018-06-09] MEDS: Ipratropium/Albuterol Neb 3 ML IH PRN ×2 (09:09→20:45)
--- NOTE | 2018-06-09 14:38 | Internal Med Progress Note ---
Date of Encounter: 06/09/18 Time of Encounter: 14:36 - Assessment and plan (1) CVA (cerebral vascular accident) Current Visit: Yes Status: Acute Assessment and plan: Patient is enjoying his day off therapy. However, he is willing to proceed tomorrow. He is to have a modified barium swallow on Sunday. Qualifiers: CVA mechanism: thrombosis Precerebral and cerebral artery: middle cerebral artery Laterality of affected vessel: left Qualified Code(s): I63.312 - Cerebral infarction due to thrombosis of left middle cerebral artery (2) Constipation Current Visit: Yes Status: Acute Assessment and plan: Clinically stable on current regimen. Will watch for diarrhea and consider changing his regimen if we need to. Qualifiers: Constipation type: unspecified constipation type Qualified Code(s): K59.00 - Constipation, unspecified (3) Acute bronchitis with COPD Current Visit: No Status: Acute Assessment and plan: This is clinically stable but with a respiratory exam similar to or slightly improved versus yesterday. (4) CHF (congestive heart failure) Current Visit: Yes Status: Chronic Assessment and plan: Clinically stable and seems to be compensated at this time. Qualifiers: Heart failure type: unspecified Heart failure chronicity: acute on chronic Qualified Code(s): I50.9 - Heart failure, unspecified (5) Essential hypertension Current Visit: Yes Status: Chronic Assessment and plan: Controlled acceptably. - Subjective Interval history: Patient has urinated well and has to urinate during examination. He had 4 well- formed bowel movements during the morning. No diarrhea. No abdominal pain. Nursing notes no change from baseline. Patient has no complaint of chest discomfort, dyspnea, orthopnea, palpitations, nausea or vomiting, constipation or diarrhea, other changes in bowel habits, difficulty with urination, rash or itching, or other new complaints, except as mentioned above. Review of systems is otherwise negative. I discussed management of her care with nursing staff. - Constitutional Vitals: Temp Pulse Resp BP Pulse Ox 98.2 F 72 16 112/68 94 06/09/18 07:21 06/09/18 07:21 06/09/18 07:21 06/09/18 07:21 06/09/18 11:00 Exam: Examination: (Except as mentioned above): General: In no apparent distress. Alert and oriented 3. Nondiaphoretic. Patient is on 2 L per nasal cannula. Head: Atraumatic and normocephalic. Respiratory: No use of accessory muscles. Lungs are clear throughout, except for right basilar sonorous rhonchi. No rales. Normal airflow for him. Cardiovascular: Regular rate and rhythm without murmur appreciated. Abdomen: Bowel sounds are normal. No hepatosplenomegaly mass or tenderness appreciated. Obese and therefore difficult to palpate deeply. Extremities: No cyanosis clubbing or change in edema. Skin: Warm and non-diaphoretic with no new lesions noted. Internal Medicine: Result - Labs CBC & Chem 7: 06/03/18 06:10 06/06/18 05:40 - ABG Interpretation ABG results: PT/INR, D-dimer PT 13.9 Seconds (9.4-12.1) H 06/05/18 13:56 Consult Discharge Plan - Plan Referrals: Kamla Garcia, NEIGHBORHOOD COORDINATOR [Primary Care Provider] -
[2018-06-09] MEDS: traZODone 50 MG TABLET PO SCH (20:44)
[2018-06-10] MEDS: Ipratropium/Albuterol Neb 3 ML IH SCH ×3 (04:56→16:10)
[2018-06-10] MEDS: *HR* Heparin 5,000 UNIT/ML VIAL SQ SCH ×2 (04:56→16:10)
[2018-06-10] MEDS: Lisinopril 20 MG TABLET PO SCH (08:15)
[2018-06-10] MEDS: Lactobacillus 1 EACH CAP.SPRINK PO SCH (08:15)
[2018-06-10] MEDS: Metoprolol XL (24 HR) Succ 50 MG TAB.ER.24H PO SCH (08:15)
[2018-06-10] MEDS: Aspirin Enteric Coated 325 MG Tablet PO SCH (08:15)
[2018-06-10] MEDS: Furosemide 40 MG TABLET PO SCH (08:15)
[2018-06-10] MEDS: Fluticasone Propionate Nasal 50 MCG/SPRAY BOTTLE NS SCH (08:16)
--- NOTE | 2018-06-10 11:20 | Internal Med Progress Note ---
Date of Encounter: 06/10/18 Time of Encounter: 10:00 - Assessment and plan (1) CVA (cerebral vascular accident) Current Visit: Yes Status: Acute Assessment and plan: Patient is doing well and will continue therapies as planned. He is to undergo a modified barium swallow, this afternoon. Qualifiers: CVA mechanism: thrombosis Precerebral and cerebral artery: middle cerebral artery Laterality of affected vessel: left Qualified Code(s): I63.312 - Cerebral infarction due to thrombosis of left middle cerebral artery (2) Constipation Current Visit: Yes Status: Acute Assessment and plan: Will follow to make sure he is not suffering from constipation and that his regimen does not cause him to have too many bowel movements. Qualifiers: Constipation type: unspecified constipation type Qualified Code(s): K59.00 - Constipation, unspecified (3) Acute bronchitis with COPD Current Visit: No Status: Acute Assessment and plan: Apparently at his baseline. (4) CHF (congestive heart failure) Current Visit: Yes Status: Chronic Assessment and plan: Clinically stable and will follow. Qualifiers: Heart failure type: unspecified Heart failure chronicity: acute on chronic Qualified Code(s): I50.9 - Heart failure, unspecified (5) Essential hypertension Current Visit: Yes Status: Chronic Assessment and plan: Clinically stable and will watch for systolic hypertension. - Subjective Interval history: Patient is without complaint and states "I am doing just fine." He has not had any more bowel movements and his swelling is stable. He denies breathing p roblems or cough. Nursing notes no change from baseline. Patient has no complaint of chest discomfort, dyspnea, orthopnea, palpitations, nausea or vomiting, constipation or diarrhea, other changes in bowel habits, difficulty with urination, rash or itching, or other new complaints, except as mentioned above. Review of systems is otherwise negative. I discussed management of her care with nursing staff. - Constitutional Vitals: Temp Pulse Resp BP Pulse Ox 97.8 F 71 16 107/70 98 06/10/18 07:38 06/10/18 07:38 06/10/18 07:38 06/10/18 07:38 06/10/18 07:38 Exam: Examination: (Except as mentioned above): General: In no apparent distress. Alert and oriented 3. Nondiaphoretic. The patient is wearing oxygen at 2 L by nasal cannula. Head: Atraumatic and normocephalic. Respiratory: No use of accessory muscles. Lungs are clear throughout. Normal airflow. Cardiovascular: Regular rate and rhythm without murmur appreciated. Abdomen: Bowel sounds are normal. No hepatosplenomegaly mass or tenderness appreciated. Obese and therefore difficult to palpate deeply. Patient is examined upright in chair and this also limits exam. Extremities: No cyanosis clubbing or change in edema. Skin: Warm and non-diaphoretic with no new lesions noted. Internal Medicine: Result - Labs CBC & Chem 7: 06/03/18 06:10 06/06/18 05:40 - ABG Interpretation ABG results: PT/INR, D-dimer PT 13.9 Seconds (9.4-12.1) H 06/05/18 13:56 Consult Discharge Plan - Plan Referrals: Kamla Garcia, IUSS ACOUSTIC ANALYST [Primary Care Provider] -
[2018-06-10] MEDS: traZODone 50 MG TABLET PO SCH (20:05)
[2018-06-10] MEDS: Acetaminophen 325 MG TABLET PO PRN (20:08)
[2018-06-11] MEDS: *HR* Heparin 5,000 UNIT/ML VIAL SQ SCH ×2 (05:49→17:19)
[2018-06-11] MEDS: Ipratropium/Albuterol Neb 3 ML IH SCH ×5 (05:49→23:06)
[2018-06-11] MEDS: Lactobacillus 1 EACH CAP.SPRINK PO SCH (08:28)
[2018-06-11] MEDS: Aspirin Enteric Coated 325 MG Tablet PO SCH (08:28)
[2018-06-11] MEDS: Furosemide 40 MG TABLET PO SCH (08:29)
[2018-06-11] MEDS: Metoprolol XL (24 HR) Succ 50 MG TAB.ER.24H PO SCH (08:29)
[2018-06-11] MEDS: Fluticasone Propionate Nasal 50 MCG/SPRAY BOTTLE NS SCH (08:29)
[2018-06-11] MEDS: Lisinopril 20 MG TABLET PO SCH (08:29)
[2018-06-11 11:34] LABS: Basophils % 0.4 %; Eosinophils # 0.2 K/mcL (0.0-0.6); Eosinophils % 3.3 %; Hematocrit 38.8 % (37.5-50.1); Hemoglobin 12.3 g/dL (12.9-16.9); Immature Granulocytes % 0.2 % (0-4); Lymphocytes # 0.6 K/mcL (0.6-4.6); Lymphocytes % 13.7 %; Mean Corpuscular HGB Conc 31.7 g/dL (31.6-35.5); Mean Corpuscular Hemoglobin 29.1 pg (28.0-33.3); Mean Corpuscular Volume 91.9 fL (83.0-100.0); Mean Platelet Volume 9.9 fL (9.4-12.4); Monocytes # 0.4 K/mcL (0.0-1.3); Monocytes % 8.5 %; Neutrophils # 3.4 K/mcL (1.6-8.9); Platelet Count 154 K/mcL (140-400); Red Blood Count 4.22 M/mcL (4.19-5.50); Red Cell Distribution Width 15.5 % (11.5-14.5); Segmented Neutrophils % 73.9 %
--- NOTE | 2018-06-11 11:51 | Internal Med Progress Note ---
Date of Encounter: 06/11/18 Time of Encounter: 11:50 - Assessment and plan (1) CVA (cerebral vascular accident) Current Visit: Yes Status: Acute Assessment and plan: He continues to do well with therapy although he is somewhat limited by fatigue and dyspnea, for therapy staff. He continues to progress. Qualifiers: CVA mechanism: thrombosis Precerebral and cerebral artery: middle cerebral artery Laterality of affected vessel: left Qualified Code(s): I63.312 - Cerebral infarction due to thrombosis of left middle cerebral artery (2) Constipation Current Visit: Yes Status: Acute Assessment and plan: This seems to have resolved. Qualifiers: Constipation type: unspecified constipation type Qualified Code(s): K59.00 - Constipation, unspecified (3) CHF (congestive heart failure) Current Visit: Yes Status: Chronic Assessment and plan: He has compensated nicely and is not currently exhibiting signs or symptoms. Qualifiers: Heart failure type: unspecified Heart failure chronicity: acute on chronic Qualified Code(s): I50.9 - Heart failure, unspecified (4) Essential hypertension Current Visit: Yes Status: Chronic Assessment and plan: He occasionally has high readings were most are okay. - Subjective Interval history: Patient is pleased that he "passed his test yesterday" with a change in his diet to allow thin liquids. He denies other problems and is feeling otherwise well. Patient has no complaint of chest discomfort, dyspnea, orthopnea, palpitations, nausea or vomiting, constipation or diarrhea, other changes in bowel habits, difficulty with urination, rash or itching, or other new complaints, except as mentioned above. Review of systems is otherwise negative. I discussed management of her care with nursing staff. - Constitutional Vitals: Temp Pulse Resp BP Pulse Ox 97.8 F 70 15 113/72 99 06/11/18 08:36 06/11/18 08:36 06/11/18 08:36 06/11/18 08:36 06/11/18 08:36 Exam: Examination: (Except as mentioned above): General: In no apparent distress. Alert and oriented 3. Nondiaphoretic. He is on oxygen 2 L/m per nasal cannula. Head: Atraumatic and normocephalic. Respiratory: No use of accessory muscles. Lungs are clear throughout. Normal airflow. Cardiovascular: Regular rate and rhythm without murmur appreciated. Abdomen: Bowel sounds are normal. No hepatosplenomegaly mass or tenderness a ppreciated. Obese and therefore difficult to palpate deeply. Patient is examined upright in chair and this also limits exam. Extremities: No cyanosis clubbing or edema. Edema has totally resolved. Skin: Warm and non-diaphoretic with no new lesions noted. Internal Medicine: Result - Labs CBC & Chem 7: 06/11/18 11:15 06/11/18 11:15 Labs: Short CBC 06/11/18 Range/Units 11:15 WBC 4.6 (4.3-11.1) K/mcL Hgb 12.3 L (12.9-16.9) g/dL Hct 38.8 (37.5-50.1) % Plt Count 154 (140-400) K/mcL Neutrophils # 3.4 (1.6-8.9) K/mcL - ABG Interpretation ABG results: PT/INR, D-dimer PT 13.9 Seconds (9.4-12.1) H 06/05/18 13:56 - Impressions Impressions Videofluoroscopic Swallow 06/10/18 13:40 IMPRESSION: Deep penetration of thin barium with consecutive sips of barium by cup. No aspiration. Please see separate speech pathology report for full discussion of findings and recommendations. D/ / 06/10/2018 16:13:32 Jovana Villatoro MD / dina Interpreting Provider: Jovana Villatoro MD Consult Discharge Plan - Plan Referrals: Kamla Garcia CNP [Primary Care Provider] -
[2018-06-11 11:54] LABS: Albumin/Globulin Ratio 1.3 (1.1-2.2); Bilirubin,Total 0.5 mg/dL (0.3-1.0); Calcium 9.7 mg/dL (8.6-10.3); Globulin 3.1 g/dL (2.4-3.5); Potassium 4.7 mEq/L (3.5-5.1); Total Protein 7.1 g/dL (6.4-8.9)
[2018-06-11] MEDS: traZODone 50 MG TABLET PO SCH (19:54)
[2018-06-12] MEDS: *HR* Heparin 5,000 UNIT/ML VIAL SQ SCH ×2 (05:22→17:15)
[2018-06-12] MEDS: Ipratropium/Albuterol Neb 3 ML IH SCH ×4 (05:23→21:31)
[2018-06-12] MEDS: Fluticasone Propionate Nasal 50 MCG/SPRAY BOTTLE NS SCH (09:36)
[2018-06-12] MEDS: Ipratropium/Albuterol Neb 3 ML IH PRN (09:36)
[2018-06-12] MEDS: Lisinopril 20 MG TABLET PO SCH (09:38)
[2018-06-12] MEDS: Lactobacillus 1 EACH CAP.SPRINK PO SCH (09:38)
[2018-06-12] MEDS: Furosemide 40 MG TABLET PO SCH (09:38)
[2018-06-12] MEDS: Metoprolol XL (24 HR) Succ 50 MG TAB.ER.24H PO SCH (09:38)
[2018-06-12] MEDS: Aspirin Enteric Coated 325 MG Tablet PO SCH (09:38)
--- NOTE | 2018-06-12 11:16 | Internal Med Progress Note ---
Date of Encounter: 06/12/18 Time of Encounter: 11:14 - Assessment and plan (1) CVA (cerebral vascular accident) Current Visit: Yes Status: Acute Assessment and plan: No acute issues. Patient with chronic disconjugate gaze. Denies any neurological changes since discharge from hospital. No acute focal neurological deficits noted on exam. Patient reportedly has been progressing well with physical therapy and will continue with current plan of care. 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 Currently lungs are clear with diminished bases. Patient denies any dyspnea while at rest, but states continued slight dyspnea during ambulation. No productive cough noted on exam. (3) CHF (congestive heart failure) Current Visit: Yes Status: Chronic Assessment and plan: No acute issues. Patient with diminished breath sounds to bases but otherwise no congestion heard. Respiratory effort appears relaxed. Patient denies any chest palpitations or discomforts. Continue with current plan of care and medications. Qualifiers: Heart failure type: unspecified Heart failure chronicity: acute on chronic Qualified Code(s): I50.9 - Heart failure, unspecified (4) Essential hypertension Current Visit: Yes Status: Chronic Assessment and plan: Vital signs remained stable. We will continue with current medications. - Time Spent With Patient less than 15 minutes - Subjective Interval history: Patient appears relaxed and currently denies any discomforts. Patient states no dyspnea while at rest but states he continues to have slight dyspnea after exertion when ambulating. Denies any productive cough. Afebrile. Patient states that physical therapy is progressing well. Patient denies any current issues. Patient had recent modified barium swallow which showed no aspiration. Patient currently is tolerating advancement of his current diet. - Constitutional Vitals: Temp Pulse Resp BP Pulse Ox 98.1 F 67 14 113/70 98 06/12/18 07:01 06/12/18 07:01 06/12/18 07:01 06/12/18 07:01 06/12/18 10:08 General appearance: Present: cooperative, A&O X 3, pleasant, no acute distress, answers questions appropriately - Head Head exam: Present: atraumatic, normocephalic - Eye Eye exam: Present: PERRL, conjuntiva pink, sclera anicteric Pupils: Present: PERRL Additional comments: Disconjugate gaze. Chronic since childhood. No visual cuts on exam - Neck Neck exam general surgery: Present: supple, trachea midline. Absent: lymphadenopathy - Respiratory Respiratory exam: Present: CTAB. Absent: accessory muscle use, rales, rhonchi, wheezes Additional comments: Lungs are clear throughout upper ramirez with diminished basilar ramirez. Respiratory effort appears relaxed. Patient denies any productive cough. - Cardiovascular Cardiovascular exam: Present: RRR, +S1, +S2. Absent: diastolic murmur, gallop, rubs, systolic murmur - GI/Abdominal GI/Abdominal exam: Present: normal bowel sounds, soft, no peritoneal signs. Absent: distended, tenderness - Extremities Exam Extremities exam: Present: warm, radial pulses palpable and symmetrical. Absent: calf tenderness, cyanotic, pedal edema - Neurological Exam Neurological exam: Present: CN II-XII intact, oriented X3, no focal deficits. Absent: pronater drift, facial droop, speech deficit - Skin Skin exam: Present: dry, intact Internal Medicine: Result - Labs CBC & Chem 7: 06/11/18 11:15 06/11/18 11:15 Labs: Short CBC 06/11/18 Range/Units 11:15 WBC 4.6 (4.3-11.1) K/mcL Hgb 12.3 L (12.9-16.9) g/dL Hct 38.8 (37.5-50.1) % Plt Count 154 (140-400) K/mcL Neutrophils # 3.4 (1.6-8.9) K/mcL BMP 06/11/18 11:15 Sodium 138 Potassium 4.7 Chloride 103 Carbon Dioxide 28 BUN 28 H Creatinine 1.42 H Glucose 93 Calcium 9.7 Liver Function 06/11/18 Range/Units 11:15 Total Bilirubin 0.5 (0.3-1.0) mg/dL AST 20 (13-39) Units/L ALT 22 (7-52) Units/L Alkaline Phosphatase 63 (34-104) Units/L Albumin 4.0 (3.5-5.7) g/dL - ABG Interpretation ABG results: PT/INR, D-dimer PT 13.9 Seconds (9.4-12.1) H 06/05/18 13:56 - Impressions Impressions Videofluoroscopic Swallow 06/10/18 13:40 IMPRESSION: Deep penetration of thin barium with consecutive sips of barium by cup. No aspiration. Please see separate speech pathology report for full discussion of findings and recommendations. D/ / 06/10/2018 16:13:32 Jovana Villatoro MD / dina Interpreting Provider: Jovana Villatoro MD Consult Discharge Plan - Plan Referrals: Kamla Garcia, DRY CLEANER HAND [Primary Care Provider] -
[2018-06-12] MEDS: traZODone 50 MG TABLET PO SCH (21:31)
[2018-06-13] MEDS: *HR* Heparin 5,000 UNIT/ML VIAL SQ SCH ×2 (05:06→17:39)
[2018-06-13] MEDS: Ipratropium/Albuterol Neb 3 ML IH SCH ×4 (05:06→21:29)
[2018-06-13] MEDS: Lisinopril 20 MG TABLET PO SCH (08:51)
[2018-06-13] MEDS: Lactobacillus 1 EACH CAP.SPRINK PO SCH (08:51)
[2018-06-13] MEDS: Aspirin Enteric Coated 325 MG Tablet PO SCH (08:51)
[2018-06-13] MEDS: Metoprolol XL (24 HR) Succ 50 MG TAB.ER.24H PO SCH (08:52)
[2018-06-13] MEDS: Fluticasone Propionate Nasal 50 MCG/SPRAY BOTTLE NS SCH (09:56)
--- NOTE | 2018-06-13 11:51 | Internal Med Progress Note ---
Addendum entered and electronically signed by Kameron Ceja MD 06/13/18 12:14: I have personally performed a face to face evaluation on this patient. I have r eviewed and agree with the care plan. History and Exam by me shows: Patient with recurrent shoulder pain and when I ask of Tylenol was helpful he said he was unaware that he had any. I encouraged to ask for this and he said he would. Patient notes that yesterday his bowels moved 4 times. He denies diarrhea or abdominal discomfort. Today, his bowels have not moved at all. He is passing urine, adequately. Discussed care with other providers and/or nursing. Patient has no complaint of chest discomfort, dyspnea, orthopnea, palpitations, nausea or vomiting, constipation or diarrhea, other changes in bowel habits, difficulty with urination, rash or itching, or other new complaints, except as mentioned above. Review of systems is otherwise negative. Examination: (Except as mentioned above): General: In no apparent distress. Alert and oriented 3. Nondiaphoretic. Head: Atraumatic and normocephalic. Respiratory: No use of accessory muscles. Lungs are clear nearly throughout, with occasional sonorous rhonchi, especially in the right base as before.. Normal airflow, for him.. Cardiovascular: Regular rate and rhythm without murmur appreciated. Abdomen: Bowel sounds are normal. No hepatosplenomegaly mass or tenderness appreciated. Obese and therefore difficult to palpate deeply. Extremities: No cyanosis clubbing or change in edema. Skin: Warm and non-diaphoretic with no new lesions noted. Discharge planning is still being debated. He improves with therapy but it is not certain whether he will be safe when home alone and evaluation of longterm placement is being considered. Original Note: Date of Encounter: 06/13/18 Time of Encounter: 11:49 - Assessment and plan (1) CVA (cerebral vascular accident) Current Visit: Yes Status: Acute Assessment and plan: No acute issues. Patient with chronic disconjugate gaze. Denies any neurological changes since discharge from hospital. No acute focal neurological deficits noted on exam. Patient reportedly has been progressing well with physical therapy and will continue with current plan of care. 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 Currently lungs are clear with fine basilar rales. Patient denies any dyspnea while at rest, but states continued slight dyspnea during ambulation. No productive cough noted on exam. (3) CHF (congestive heart failure) Current Visit: Yes Status: Chronic Assessment and plan: No acute issues. Patient with fine basilar rales heard. Respiratory effort appears relaxed. Patient denies any chest palpitations or discomforts. Continue with current plan of care and medications. Qualifiers: Heart failure type: unspecified Heart failure chronicity: acute on chronic Qualified Code(s): I50.9 - Heart failure, unspecified (4) Essential hypertension Current Visit: Yes Status: Chronic Assessment and plan: Vital signs remained stable. We will continue with current medications. - Time Spent With Patient less than 15 minutes - Subjective Interval history: Patient appears relaxed and currently denies any discomforts. She continues with slight dyspnea on exertion. Denies any productive cough. Afebrile. Patient states that physical therapy is progressing well. Patient denies any current issues. Patient had recent modified barium swallow which showed no aspiration. Patient currently is tolerating advancement of his current diet. - Constitutional Vitals: Temp Pulse Resp BP Pulse Ox 97.9 F 68 16 109/62 95 06/13/18 07:21 06/13/18 07:21 06/13/18 07:21 06/13/18 07:21 06/13/18 07:21 General appearance: Present: cooperative, A&O X 3, pleasant, no acute distress, answers questions appropriately - Head Head exam: Present: atraumatic, normocephalic - Eye Eye exam: Present: PERRL, conjuntiva pink, sclera anicteric Pupils: Present: PERRL Additional comments: Chronic disconjugate gaze since childhood. No visual field cuts - Neck Neck exam general surgery: Present: supple, trachea midline. Absent: lymphadenopathy - Respiratory Respiratory exam: Present: CTAB. Absent: accessory muscle use, rales, rhonchi, wheezes Additional comments: Lungs are clear throughout upper ramirez but noted scattered fine rales heard to posterior basilar ramirez. Respiratory effort appears relaxed while at rest. No productive cough noted. - Cardiovascular Cardiovascular exam: Present: RRR, +S1, +S2. Absent: diastolic murmur, gallop, rubs, systolic murmur - GI/Abdominal GI/Abdominal exam: Present: normal bowel sounds, soft, no peritoneal signs. Absent: distended, tenderness - Extremities Exam Extremities exam: Present: warm, radial pulses palpable and symmetrical. Absent: calf tenderness, cyanotic, pedal edema - Neurological Exam Neurological exam: Present: CN II-XII intact, oriented X3, no focal deficits. Absent: pronater drift, facial droop, speech deficit - Skin Skin exam: Present: dry, intact Internal Medicine: Result - Labs CBC & Chem 7: 06/11/18 11:15 06/11/18 11:15 - ABG Interpretation ABG results: PT/INR, D-dimer PT 13.9 Seconds (9.4-12.1) H 06/05/18 13:56 Consult Discharge Plan - Plan Referrals: Kamla Garcia, PROFESSIONAL CASTER [Primary Care Provider] -
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
[2018-06-13 15:45] LABS: Calcium 9.8 mg/dL (8.6-10.3)
[2018-06-13] MEDS: traZODone 50 MG TABLET PO SCH (21:28)
[2018-06-14] MEDS: *HR* Heparin 5,000 UNIT/ML VIAL SQ SCH (04:24)
[2018-06-14] MEDS: Ipratropium/Albuterol Neb 3 ML IH SCH ×2 (04:24→11:12)
[2018-06-14 07:25] VITALS: BP 104/69
[2018-06-14] MEDS: Lactobacillus 1 EACH CAP.SPRINK PO SCH (08:18)
[2018-06-14] MEDS: Lisinopril 20 MG TABLET PO SCH (08:18)
[2018-06-14] MEDS: Metoprolol XL (24 HR) Succ 50 MG TAB.ER.24H PO SCH (08:20)
[2018-06-14] MEDS: Aspirin Enteric Coated 325 MG Tablet PO SCH (08:20)
[2018-06-14] MEDS: Fluticasone Propionate Nasal 50 MCG/SPRAY BOTTLE NS SCH (09:32)
--- NOTE | 2018-06-14 12:37 | Physician Discharge Referral ---
Addendum entered and electronically signed by Kameron Ceja MD 06/14/18 13:03: Original Note: [facility] Referral Info Transfer To: [facility] Provider in Charge after Transfer: PCP Institutional Level of Care: Skilled - Diagnosis (1) CVA (cerebral vascular accident) Priority: Primary Status: Acute (2) Former smoker Priority: Secondary Status: Resolved (3) Pacemaker Priority: Secondary Status: Chronic (4) COPD exacerbation Priority: Secondary Status: Chronic (5) CHF (congestive heart failure) Priority: Secondary Status: Chronic (6) Essential hypertension Priority: Secondary Status: Chronic - Transfer Medications Home Medications: Aspirin Enteric Coated [Aspirin EC] 325 mg PO DAILY 09/26/16 [History] Atorvastatin [Lipitor] 10 mg PO HS 09/26/16 [History] Furosemide [Lasix] 60 mg PO DAILY 09/26/16 [History] Ipratropium/Albuterol Neb [Duoneb] 3 ml IH Q6HR PRN 09/26/16 [History] Potassium Chloride [Klor-Con Sprinkle] 20 meq PO DAILY 09/26/16 [History] Esomeprazole Magnesium [Nexium] 40 mg PO DAILY 12/11/16 [History] Lisinopril [Zestril] 40 mg PO DAILY 12/11/16 [History] Metoprolol XL (24 HR) Succ [Toprol XL] 50 mg PO DAILY 12/11/16 [History] Umeclidinium [place] [Incruse Ellipta] 1 puff IH DAILY 12/11/16 [History] Montelukast [Singulair] 10 mg PO DAILY 05/14/18 [History] Allergies/Adverse Reactions: Allergy/AdvReac Type Severity Reaction Status Date / Time cephalexin [From Keflex] Allergy Difficulty Verified 08/12/17 20:28 Breathing - Respiratory Orders Oxygen / L per min Smoking Cessation: Smoking cessation has been advised. For more information, call the [place] Tobacco Quit Line at 9-101-JTFK-NOW. - Advance Directives Code Status: Full Code - Mobility Orders Ambulate - Rehabiliation Orders Rehab Potential: Good Rehab Orders: Evaluation for Physical Therapy, Evaluation for Occupational Therapy - Diet Orders Mechanical Soft House Supplement per Dietary: with meals CERTIFICATION: I certify that the transfer of the above named patient to an Extended Care Facility is necessary for the continuing treatment of the diagnosis listed. The above information is true and accurate reflection of patient's current condition. Confidential - Redisclosure prohibited without a patient's written consent.
--- NOTE | 2018-06-14 12:40 | Discharge Summary ---
Addendum entered and electronically signed by Kameron Ceja MD 06/14/18 13:03: I have personally performed a face to face evaluation on this patient. I have r eviewed and agree with the care plan. History and Exam by me shows: patient is feeling well. He is not having problems with his bowels and he moved only once yesterday. He continues to have no breathing problems versus his baseline and his urinary output is adequate. He denies dysuria or other problems. Discussed care with other providers and/or nursing. Patient has no complaint of chest discomfort, dyspnea, orthopnea, palpitations, nausea or vomiting, constipation or diarrhea, other changes in bowel habits, difficulty with urination, rash or itching, or other new complaints, except as mentioned above. Review of systems is otherwise negative. Examination: (Except as mentioned above): General: In no apparent distress. Alert and oriented 3. Nondiaphoretic. Head: Atraumatic and normocephalic. Respiratory: No use of accessory muscles. Lungs are clear throughout with the exception of rare sonorous rhonchi in the right base. Normal airflow. Cardiovascular: Regular rate and rhythm without murmur appreciated. Abdomen: Bowel sounds are normal. No hepatosplenomegaly mass or tenderness appreciated. Obese and therefore difficult to palpate deeply. Patient is examined upright in chair and this also limits exam. Extremities: No cyanosis clubbing or edema. Chronic stasis changes, as before with no open lesions. Skin: Warm and non-diaphoretic with no new lesions noted. I am concerned about his elevating creatinine and he will need to have follow-up of this. Also, he has been resumed on 60 mg daily of Lasix. This is down from 80 which was designed to take care of an exacerbation of his congestive heart failure. He should have close monitoring of his renal function, oxygen saturation, and his edema, at the extended care facility. Original Note: Orders not resulted at time of discharge: Pending orders 06/15/18 06:00 BMP [Basic Metabolic Panel] AM 0600 Date of Encounter: 06/14/18 Time of Encounter: 12:38 - Discharge Diagnosis (1) CVA (cerebral vascular accident) Priority: Primary Status: Acute Comments: Continue PT and OT. Has made good progress. Ambulates with Walker. Become short of breath with exertion at times. No new neurological deficits. Follow up with neurology as scheduled. Qualifiers: CVA mechanism: thrombosis Precerebral and cerebral artery: middle cerebral artery Laterality of affected vessel: left Qualified Code(s): I63.312 - Cerebral infarction due to thrombosis of left middle cerebral artery (2) Pacemaker Priority: Secondary Status: Chronic (3) COPD exacerbation Priority: Secondary Status: Chronic Comments: Controlled. Continue inhaled meds. Continue oxygen at 2 L per nasal cannula. Maintaining O2 sats 98% (4) CHF (congestive heart failure) Priority: Secondary Status: Chronic Comments: Controlled with current medication. Continue Lasix. Lasix was recently decreased to 60 mg daily from 100 mg. Due to creatinine elevating slightly. Last creatinine 1.45 Qualifiers: Heart failure type: unspecified Heart failure chronicity: acute on chronic Qualified Code(s): I50.9 - Heart failure, unspecified (5) Essential hypertension Priority: Secondary Status: Chronic Comments: Controlled with current medication. Monitor blood pressure. Follow up with PCP. Hospital course: Mr. Hoover is a 77 year old male discharging to [facility], [facility], status post CVA. Patient has made great progress with PT and OT. Ambulates with Walker. Maintaining O2 sats greater than 98% at 2 L per nasal cannula. Does get short of breath with exertion often on. Lasix recently decreased to 60 mg daily due to creatinine increased to 1.45. Patient denies fever, chills, nausea, vomitingor diarrhea, or chest pain. Bowels moving as normal. Maintaining appetite and hydration. Discharge discussed with: patient, family, nurse, social work - Time Spent with Patient Total time spent providing and/or coordinating discharge services: Less than 30 minutes - Discharge Medications Home Medications: Aspirin Enteric Coated [Aspirin EC] 325 mg PO DAILY 09/26/16 [History] Atorvastatin [Lipitor] 10 mg PO HS 09/26/16 [History] Ipratropium/Albuterol Neb [Duoneb] 3 ml IH Q6HR PRN 09/26/16 [History] Potassium Chloride [Klor-Con Sprinkle] 20 meq PO DAILY 09/26/16 [History] Esomeprazole Magnesium [Nexium] 40 mg PO DAILY 12/11/16 [History] Lisinopril [Zestril] 40 mg PO DAILY 12/11/16 [History] Metoprolol XL (24 HR) Succ [Toprol Xl] 50 mg PO DAILY 12/11/16 [History] Umeclidinium [place] [Incruse Ellipta] 1 puff IH DAILY 12/11/16 [History] Montelukast [Singulair] 10 mg PO DAILY 05/14/18 [History] Acetaminophen [Tylenol] 650 mg PO Q4HR PRN tablet 06/14/18 [Rx] Buspirone HCl [Buspar] 7.5 mg PO BID tablet 06/14/18 [Rx] Fluticasone Propionate Nasal [Flonase] 50 mcg NS DAILY bottle 06/14/18 [Rx] Furosemide [Lasix] 60 mg PO DAILY tablet 06/14/18 [Rx] Heparin 5,000 unit SQ Q12HCO vial 06/14/18 [Rx] Lactobacillus [Culturelle] 1 each PO DAILY cap.sprink 06/14/18 [Rx] Mag Hydrox/Al Hydrox/Simeth [Maalox] 30 ml PO Q4H PRN udc 06/14/18 [Rx] Patient Taking Own Medication 1 each IH DAILY each 06/14/18 [Rx] Polyethylene Glycol 3350 [MiraLAX] 17 gm PO DAILY PRN powd.pack 06/14/18 [Rx] Simethicone [Gas-X] 80 mg PO TID PRN tab.chew 06/14/18 [Rx] traZODone [TraZODone] 25 mg PO HS tablet 06/14/18 [Rx] Allergies/Adverse Reactions: Allergy/AdvReac Type Severity Reaction Status Date / Time cephalexin [From Keflex] Allergy Difficulty Verified 08/12/17 20:28 Breathing Date of admission: 05/28/18 19:26 Primary care physician: Kamla Garcia CNP Consults: 06/12/18 12:28 Consult to Psychology [CONS] Routine Consulting Provider: Radha Mccauley Reason for Consult: Possible depression; adjustment disorder Call Completed: No 05/28/18 20:23 Consult to Occupational Therapy [CONS] Routine Comment: Eval and Treat Reason for Consult: Eval and Treat Does patient have active BEDREST order?: No Is patient medically & hemodynamically stable?: Yes Patient assessed for mobility or mobilized this visit?: No Consult to Physical Therapy [CONS] Routine Comment: Eval and Treat Reason for Consult: Eval and Treat Does patient have active BEDREST order?: No Is patient medically & hemodynamically stable?: Yes Patient assessed for mobility or mobilized this visit?: No Consult to Recreational Therapy [CONS] Routine Comment: Consult to Communications Operator [CONS] Routine Reason for SW Consult: Discharge Planning 05/28/18 20:27 Consult to Speech Therapy [CONS] Routine Comment: Evaluate, develop and implement POC Reason for Consult: Advanced Soft Diet, [place] Thick Liquids Call Completed: No Discharging clinician: Kameron Ceja Anticipated date of discharge: 06/14/18 - Constitutional Vitals: Temp Pulse Resp BP Pulse Ox 97.7 F 73 18 104/69 98 06/14/18 07:19 06/14/18 07:19 06/14/18 07:19 06/14/18 07:19 06/14/18 09:53 General appearance: Present: cooperative, A&O X 3, pleasant, no acute distress, answers questions appropriately - Head Head exam: Present: atraumatic, normocephalic - Eye Eye exam: Present: PERRL, conjuntiva pink, sclera anicteric Pupils: Present: PERRL - Neck Neck exam general surgery: Present: supple, trachea midline. Absent: lymphadenopathy - Respiratory Respiratory exam: Absent: accessory muscle use, rales, rhonchi, wheezes Additional comments: Fine bibasilar rales. - Cardiovascular Cardiovascular exam: Present: RRR, +S1, +S2. Absent: diastolic murmur, gallop, rubs, systolic murmur - GI/Abdominal GI/Abdominal exam: Present: normal bowel sounds, soft, no peritoneal signs. Absent: distended, tenderness - Extremities Exam Extremities exam: Present: warm, radial pulses palpable and symmetrical. Absent: calf tenderness, cyanotic, pedal edema - Neurological Exam Neurological exam: Present: CN II-XII intact, oriented X3, no focal deficits. Absent: pronater drift, facial droop, speech deficit - Skin Skin exam: Present: dry, intact Additional comments: Scattered ecchymosis - Patient Status Disposition: Transfer SNF Condition: Fair Functional capacity at discharge: uses cane/walker Overall status at discharge: patient is progressing back to baseline - Discharge Instructions Follow Up With: Kamla Garcia CNP [Primary Care Provider] - - Diet and Activity Activity: as per physical therapy Diet: other
== END 2018-06-14 15:10 | DRG 57 ==
LOC: INPGRE 19:26

== ENCOUNTER 2020-03-19 09:40 | Inpatient (IN) ==
[2020-03-20] MEDS ORDERED: Sennosides/Docusate Sodium TABLET PO PRN (19:10)
[2020-03-20] MEDS: Sennosides/Docusate Sodium TABLET PO SCH (20:08)
[2020-03-20] MEDS: Mirtazapine 15 MG TABLET PO SCH (20:09)
[2020-03-20] MEDS: Budesonide/Formoterol 160/4.5 1 PUFF INH IH SCH (20:10)
[2020-03-21] MEDS: hydrOXYzine pamoate 25 MG CAPSULE PO PRN ×2 (00:05→22:09)
[2020-03-21 05:05] LABS: Eosinophils % 0.6 %; Hematocrit 29.6 % (37.5-50.1); Hemoglobin 8.8 g/dL (12.9-16.9); Immature Granulocytes % 0.2 % (0-4); Lymphocytes # 0.4 K/mcL (0.6-4.6); Lymphocytes % 6.8 %; Mean Corpuscular HGB Conc 29.7 g/dL (31.6-35.5); Mean Corpuscular Hemoglobin 24.9 pg (28.0-33.3); Mean Corpuscular Volume 83.6 fL (83.0-100.0); Mean Platelet Volume 9.3 fL (9.4-12.4); Monocytes # 0.3 K/mcL (0.0-1.3); Neutrophils # 4.6 K/mcL (1.6-8.9); Platelet Count 123 K/mcL (140-400); Red Blood Count 3.54 M/mcL (4.19-5.50); Red Cell Distribution Width 18.5 % (11.5-14.5); Segmented Neutrophils % 86.4 %; White Blood Count 5.3 K/mcL (4.3-11.1)
[2020-03-21 05:21] LABS: Calcium 8.4 mg/dL (8.6-10.3); Potassium 4.3 mEq/L (3.5-5.1)
[2020-03-21] MEDS: predniSONE 20 MG TABLET PO SCH (08:24)
[2020-03-21] MEDS: amLODIPine 5 MG TABLET PO SCH (08:25)
[2020-03-21] MEDS: Metoprolol XL (24 HR) Succ 50 MG TAB.ER.24H PO SCH (08:25)
[2020-03-21] MEDS: *HR* Rivaroxaban 10 MG TABLET PO SCH (08:25)
[2020-03-21] MEDS: Furosemide 40 MG TABLET PO SCH (08:25)
[2020-03-21] MEDS: Budesonide/Formoterol 160/4.5 1 PUFF INH IH SCH ×2 (08:54→22:09)
[2020-03-21] MEDS: Tiotropium 18 MCG inhalation IH SCH (08:55)
[2020-03-21] MEDS ORDERED: NON-FORMULARY MEDICATION 1 EACH EACH (Tiotropium Bromide [Spiriva Respimat] 2 PUFF) IH SCH (09:00)
[2020-03-21] MEDS: Mirtazapine 15 MG TABLET PO SCH (19:33)
[2020-03-21] MEDS: Sennosides/Docusate Sodium TABLET PO SCH (19:33)
[2020-03-22 05:02] LABS: Eosinophils # 0.1 K/mcL (0.0-0.6); Eosinophils % 1.3 %; Hematocrit 28.1 % (37.5-50.1); Hemoglobin 8.6 g/dL (12.9-16.9); Immature Granulocytes % 0.4 % (0-4); Lymphocytes # 0.3 K/mcL (0.6-4.6); Lymphocytes % 7.3 %; Mean Corpuscular HGB Conc 30.6 g/dL (31.6-35.5); Mean Corpuscular Volume 81.7 fL (83.0-100.0); Mean Platelet Volume 10.8 fL (9.4-12.4); Monocytes # 0.3 K/mcL (0.0-1.3); Monocytes % 5.8 %; Neutrophils # 3.9 K/mcL (1.6-8.9); Platelet Count 121 K/mcL (140-400); Red Blood Count 3.44 M/mcL (4.19-5.50); Red Cell Distribution Width 18.6 % (11.5-14.5); Segmented Neutrophils % 85.2 %; White Blood Count 4.6 K/mcL (4.3-11.1)
[2020-03-22 05:17] LABS: BUN/Creatinine Ratio 29 (6-26); Blood Urea Nitrogen 36 mg/dL (8-23); Calcium 8.2 mg/dL (8.6-10.3); Carbon Dioxide 27 mEq/L (23-29); Chloride 106 mEq/L (98-107); Glucose 92 mg/dL (70-105); Osmolality,Calculated 292 (280-300); Potassium 4.1 mEq/L (3.5-5.1); Sodium 137 mEq/L (136-145); eGFR For African Americans > 60 (> 60); eGFR For Non-African Americans 57 (> 60)
[2020-03-22] MEDS: Tiotropium 18 MCG inhalation IH SCH (07:21)
[2020-03-22] MEDS: Budesonide/Formoterol 160/4.5 1 PUFF INH IH SCH ×2 (07:21→22:22)
[2020-03-22] MEDS: amLODIPine 5 MG TABLET PO SCH (09:19)
[2020-03-22] MEDS: Metoprolol XL (24 HR) Succ 50 MG TAB.ER.24H PO SCH (09:20)
[2020-03-22] MEDS: predniSONE 20 MG TABLET PO SCH (09:20)
[2020-03-22] MEDS: *HR* Rivaroxaban 10 MG TABLET PO SCH (09:20)
[2020-03-22] MEDS: Sennosides/Docusate Sodium TABLET PO SCH (20:07)
[2020-03-22] MEDS: Mirtazapine 15 MG TABLET PO SCH (20:07)
[2020-03-22] MEDS: hydrOXYzine pamoate 25 MG CAPSULE PO PRN (20:08)
[2020-03-23] MEDS: Budesonide/Formoterol 160/4.5 1 PUFF INH IH SCH ×2 (07:24→21:46)
[2020-03-23] MEDS: Tiotropium 18 MCG inhalation IH SCH (07:24)
[2020-03-23] MEDS: Furosemide 40 MG TABLET PO SCH (08:19)
[2020-03-23] MEDS: *HR* Rivaroxaban 10 MG TABLET PO SCH (08:40)
[2020-03-23] MEDS: amLODIPine 5 MG TABLET PO SCH (08:40)
[2020-03-23] MEDS: Metoprolol XL (24 HR) Succ 50 MG TAB.ER.24H PO SCH (08:41)
[2020-03-23] MEDS: predniSONE 20 MG TABLET PO SCH (08:41)
[2020-03-23] MEDS: Mirtazapine 15 MG TABLET PO SCH (21:16)
[2020-03-23] MEDS: Sennosides/Docusate Sodium TABLET PO SCH (21:17)
[2020-03-23] MEDS: hydrOXYzine pamoate 25 MG CAPSULE PO PRN (21:18)
[2020-03-24] MEDS: Tiotropium 18 MCG inhalation IH SCH (08:04)
[2020-03-24] MEDS: Budesonide/Formoterol 160/4.5 1 PUFF INH IH SCH ×2 (08:05→21:32)
[2020-03-24] MEDS: *HR* Rivaroxaban 10 MG TABLET PO SCH (08:12)
[2020-03-24] MEDS: predniSONE 20 MG TABLET PO SCH (08:12)
[2020-03-24] MEDS: Metoprolol XL (24 HR) Succ 50 MG TAB.ER.24H PO SCH (08:13)
[2020-03-24] MEDS: amLODIPine 5 MG TABLET PO SCH (08:13)
[2020-03-24] MEDS: Furosemide 40 MG TABLET PO SCH (08:13)
[2020-03-24] MEDS: Ipratropium/Albuterol Neb 3 ML IH PRN ×2 (11:01→21:32)
[2020-03-24] MEDS: hydrOXYzine pamoate 25 MG CAPSULE PO PRN (21:51)
[2020-03-24] MEDS: Mag Hydrox/Al Hydrox/Simeth 30 ML UDC PO PRN (21:52)
[2020-03-24] MEDS: Sennosides/Docusate Sodium TABLET PO SCH (21:52)
[2020-03-24] MEDS: Mirtazapine 15 MG TABLET PO SCH (21:52)
[2020-03-25] MEDS: Metoprolol XL (24 HR) Succ 50 MG TAB.ER.24H PO SCH (08:26)
[2020-03-25] MEDS: *HR* Rivaroxaban 10 MG TABLET PO SCH (08:26)
[2020-03-25] MEDS: Furosemide 40 MG TABLET PO SCH (08:26)
[2020-03-25] MEDS: predniSONE 20 MG TABLET PO SCH (08:26)
[2020-03-25] MEDS: amLODIPine 5 MG TABLET PO SCH (08:26)
[2020-03-25] MEDS: Budesonide/Formoterol 160/4.5 1 PUFF INH IH SCH ×2 (08:50→21:09)
[2020-03-25] MEDS: Tiotropium 18 MCG inhalation IH SCH (08:52)
[2020-03-25] MEDS ORDERED: Acetaminophen 325 MG TABLET PO PRN (10:11)
[2020-03-25] MEDS: Sennosides/Docusate Sodium TABLET PO SCH (20:05)
[2020-03-25] MEDS: hydrOXYzine pamoate 25 MG CAPSULE PO PRN (20:05)
[2020-03-25] MEDS: Mirtazapine 15 MG TABLET PO SCH (20:05)
[2020-03-25] MEDS: Ipratropium/Albuterol Neb 3 ML IH PRN (21:09)
[2020-03-26] MEDS: Acetaminophen 325 MG TABLET PO PRN (05:21)
[2020-03-26] MEDS: *HR* Rivaroxaban 10 MG TABLET PO SCH (08:02)
[2020-03-26] MEDS: Metoprolol XL (24 HR) Succ 50 MG TAB.ER.24H PO SCH (08:02)
[2020-03-26] MEDS: amLODIPine 5 MG TABLET PO SCH (08:02)
[2020-03-26] MEDS: predniSONE 20 MG TABLET PO SCH (08:02)
[2020-03-26] MEDS: Furosemide 40 MG TABLET PO SCH (08:02)
[2020-03-26] MEDS: Tiotropium 18 MCG inhalation IH SCH (10:05)
[2020-03-26] MEDS: Budesonide/Formoterol 160/4.5 1 PUFF INH IH SCH ×2 (10:07→21:58)
[2020-03-26] MEDS: Sennosides/Docusate Sodium TABLET PO SCH (20:58)
[2020-03-26] MEDS: Mirtazapine 15 MG TABLET PO SCH (21:01)
[2020-03-26] MEDS: Ipratropium/Albuterol Neb 3 ML IH PRN (21:58)
[2020-03-27] MEDS: Acetaminophen 325 MG TABLET PO PRN ×2 (05:15→21:06)
[2020-03-27 06:01] LABS: Hematocrit 31.9 % (37.5-50.1); Hemoglobin 9.5 g/dL (12.9-16.9); Mean Corpuscular HGB Conc 29.8 g/dL (31.6-35.5); Mean Corpuscular Hemoglobin 24.9 pg (28.0-33.3); Mean Corpuscular Volume 83.7 fL (83.0-100.0); Mean Platelet Volume 10.9 fL (9.4-12.4); Platelet Count 128 K/mcL (140-400); Red Blood Count 3.81 M/mcL (4.19-5.50); Red Cell Distribution Width 20.4 % (11.5-14.5)
[2020-03-27 07:51] LABS: BUN/Creatinine Ratio 23 (6-26); Blood Urea Nitrogen 29 mg/dL (8-23); Calcium 9.1 mg/dL (8.6-10.3); Carbon Dioxide 30 mEq/L (23-29); Chloride 100 mEq/L (98-107); Glucose 76 mg/dL (70-105); Magnesium 2.3 mg/dL (1.6-2.6); Osmolality,Calculated 289 (280-300); Potassium 4.9 mEq/L (3.5-5.1); Sodium 137 mEq/L (136-145); eGFR For African Americans > 60 (> 60); eGFR For Non-African Americans 55 (> 60)
[2020-03-27] MEDS: *HR* Rivaroxaban 10 MG TABLET PO SCH (09:07)
[2020-03-27] MEDS: Furosemide 40 MG TABLET PO SCH (09:08)
[2020-03-27] MEDS: amLODIPine 5 MG TABLET PO SCH (09:08)
[2020-03-27] MEDS: Metoprolol XL (24 HR) Succ 50 MG TAB.ER.24H PO SCH (09:08)
[2020-03-27] MEDS: predniSONE 20 MG TABLET PO SCH (09:08)
[2020-03-27] MEDS: Tiotropium 18 MCG inhalation IH SCH (09:45)
[2020-03-27] MEDS: Budesonide/Formoterol 160/4.5 1 PUFF INH IH SCH ×2 (09:46→20:27)
[2020-03-27] MEDS: Mirtazapine 15 MG TABLET PO SCH (20:28)
[2020-03-27] MEDS: Sennosides/Docusate Sodium TABLET PO SCH (20:28)
[2020-03-28] MEDS: Tiotropium 18 MCG inhalation IH SCH ×2 (09:47→09:57)
[2020-03-28] MEDS: Budesonide/Formoterol 160/4.5 1 PUFF INH IH SCH ×2 (09:48→21:53)
[2020-03-28] MEDS: predniSONE 20 MG TABLET PO SCH (10:02)
[2020-03-28] MEDS: Acetaminophen 325 MG TABLET PO PRN (10:02)
[2020-03-28] MEDS: amLODIPine 5 MG TABLET PO SCH (10:02)
[2020-03-28] MEDS: *HR* Rivaroxaban 10 MG TABLET PO SCH (10:03)
[2020-03-28] MEDS: Furosemide 40 MG TABLET PO SCH (10:03)
[2020-03-28] MEDS: Metoprolol XL (24 HR) Succ 50 MG TAB.ER.24H PO SCH (10:03)
[2020-03-28] MEDS: Sennosides/Docusate Sodium TABLET PO SCH (19:53)
[2020-03-28] MEDS: Mirtazapine 15 MG TABLET PO SCH (19:53)
[2020-03-29] MEDS: Furosemide 40 MG TABLET PO SCH (08:38)
[2020-03-29] MEDS: amLODIPine 5 MG TABLET PO SCH (08:38)
[2020-03-29] MEDS: Metoprolol XL (24 HR) Succ 50 MG TAB.ER.24H PO SCH (08:38)
[2020-03-29] MEDS: *HR* Rivaroxaban 10 MG TABLET PO SCH (08:38)
[2020-03-29] MEDS: predniSONE 20 MG TABLET PO SCH (08:39)
[2020-03-29] MEDS: Budesonide/Formoterol 160/4.5 1 PUFF INH IH SCH ×2 (09:37→20:45)
[2020-03-29] MEDS: Tiotropium 18 MCG inhalation IH SCH (09:37)
[2020-03-29] MEDS: Mirtazapine 15 MG TABLET PO SCH (20:02)
[2020-03-29] MEDS: Sennosides/Docusate Sodium TABLET PO SCH (20:03)
[2020-03-29] MEDS: Mag Hydrox/Al Hydrox/Simeth 30 ML UDC PO PRN (20:04)
[2020-03-30] MEDS: Tiotropium 18 MCG inhalation IH SCH (06:28)
[2020-03-30] MEDS: Budesonide/Formoterol 160/4.5 1 PUFF INH IH SCH ×2 (06:29→21:00)
[2020-03-30] MEDS: amLODIPine 5 MG TABLET PO SCH (09:43)
[2020-03-30] MEDS: hydrOXYzine pamoate 25 MG CAPSULE PO PRN (09:43)
[2020-03-30] MEDS: Furosemide 40 MG TABLET PO SCH (09:43)
[2020-03-30] MEDS: *HR* Rivaroxaban 10 MG TABLET PO SCH (09:43)
[2020-03-30] MEDS: Metoprolol XL (24 HR) Succ 50 MG TAB.ER.24H PO SCH (09:43)
[2020-03-30] MEDS: hydrOXYzine pamoate 25 MG CAPSULE PO SCH ×2 (14:18→21:48)
[2020-03-30] MEDS: predniSONE 10 MG TABLET PO SCH (14:18)
[2020-03-30 15:42] LABS: ABG Base Excess 9 mEq/L (-2 to 3); ABG HCO3 31 mEq/L (21-27); ABG Oxygen Saturation 99 % (95-98); ABG PCO2 35 mmHg (35-45); ABG PH 7.57 pH Units (7.32-7.45); ABG PO2 124 mmHg (85-104); ABG TCO2 32 mEq/L (20-26)
[2020-03-30 15:53] LABS: Basophils % 0.1 %; Eosinophils # 0.1 K/mcL (0.0-0.6); Eosinophils % 1.4 %; Hematocrit 30.6 % (37.5-50.1); Hemoglobin 9.2 g/dL (12.9-16.9); Immature Granulocytes % 0.7 % (0-4); Lymphocytes # 0.4 K/mcL (0.6-4.6); Lymphocytes % 4.7 %; Mean Corpuscular HGB Conc 30.1 g/dL (31.6-35.5); Mean Corpuscular Hemoglobin 25.1 pg (28.0-33.3); Mean Corpuscular Volume 83.6 fL (83.0-100.0); Mean Platelet Volume 9.3 fL (9.4-12.4); Monocytes # 0.5 K/mcL (0.0-1.3); Monocytes % 6.8 %; Neutrophils # 6.6 K/mcL (1.6-8.9); Platelet Count 165 K/mcL (140-400); Red Blood Count 3.66 M/mcL (4.19-5.50); Red Cell Distribution Width 20.9 % (11.5-14.5); Segmented Neutrophils % 86.3 %; White Blood Count 7.7 K/mcL (4.3-11.1)
[2020-03-30 16:10] LABS: Calcium 9.1 mg/dL (8.6-10.3); Potassium 4.1 mEq/L (3.5-5.1)
[2020-03-30] MEDS: Doxycycline 100 MG CAPSULE PO SCH (21:46)
[2020-03-30] MEDS: Mirtazapine 15 MG TABLET PO SCH (21:47)
[2020-03-30] MEDS: Sennosides/Docusate Sodium TABLET PO SCH (21:48)
[2020-03-31] MEDS: amLODIPine 5 MG TABLET PO SCH (09:53)
[2020-03-31] MEDS: Metoprolol XL (24 HR) Succ 50 MG TAB.ER.24H PO SCH (09:53)
[2020-03-31] MEDS: hydrOXYzine pamoate 25 MG CAPSULE PO SCH ×3 (09:53→21:52)
[2020-03-31] MEDS: *HR* Rivaroxaban 10 MG TABLET PO SCH (09:53)
[2020-03-31] MEDS: Doxycycline 100 MG CAPSULE PO SCH ×2 (09:53→21:51)
[2020-03-31] MEDS: predniSONE 10 MG TABLET PO SCH ×2 (09:53→16:30)
[2020-03-31] MEDS: Budesonide/Formoterol 160/4.5 1 PUFF INH IH SCH ×2 (10:33→20:46)
[2020-03-31] MEDS: Tiotropium 18 MCG inhalation IH SCH (10:33)
[2020-03-31 10:44] LABS: Basophils % 0.2 %; Eosinophils # 0.1 K/mcL (0.0-0.6); Eosinophils % 1.5 %; Hematocrit 32.9 % (37.5-50.1); Hemoglobin 9.9 g/dL (12.9-16.9); Immature Granulocytes % 0.6 % (0-4); Lymphocytes # 0.5 K/mcL (0.6-4.6); Lymphocytes % 5.5 %; Mean Corpuscular HGB Conc 30.1 g/dL (31.6-35.5); Mean Corpuscular Hemoglobin 25.3 pg (28.0-33.3); Mean Corpuscular Volume 84.1 fL (83.0-100.0); Monocytes # 0.7 K/mcL (0.0-1.3); Monocytes % 7.5 %; Neutrophils # 8.1 K/mcL (1.6-8.9); Platelet Count 175 K/mcL (140-400); Red Blood Count 3.91 M/mcL (4.19-5.50); Red Cell Distribution Width 21.2 % (11.5-14.5); Segmented Neutrophils % 84.7 %; White Blood Count 9.5 K/mcL (4.3-11.1)
[2020-03-31 11:10] LABS: Calcium 9.4 mg/dL (8.6-10.3); Potassium 3.9 mEq/L (3.5-5.1)
[2020-03-31] MEDS: Mag Hydrox/Al Hydrox/Simeth 30 ML UDC PO PRN (13:42)
[2020-03-31] MEDS: Mirtazapine 15 MG TABLET PO SCH (21:51)
[2020-03-31] MEDS: Acetaminophen 325 MG TABLET PO PRN (21:51)
[2020-03-31] MEDS: Sennosides/Docusate Sodium TABLET PO SCH (21:52)
[2020-04-01] MEDS: Acetaminophen 325 MG TABLET PO PRN (06:11)
[2020-04-01] MEDS: Budesonide/Formoterol 160/4.5 1 PUFF INH IH SCH ×2 (07:10→20:32)
[2020-04-01] MEDS: Tiotropium 18 MCG inhalation IH SCH (07:10)
[2020-04-01] MEDS: Ipratropium/Albuterol Neb 3 ML IH PRN ×2 (07:11→17:46)
[2020-04-01] MEDS: Metoprolol XL (24 HR) Succ 50 MG TAB.ER.24H PO SCH (08:13)
[2020-04-01] MEDS: Doxycycline 100 MG CAPSULE PO SCH ×2 (08:13→19:49)
[2020-04-01] MEDS: hydrOXYzine pamoate 25 MG CAPSULE PO SCH ×3 (08:14→19:49)
[2020-04-01] MEDS: *HR* Rivaroxaban 10 MG TABLET PO SCH (08:14)
[2020-04-01] MEDS: amLODIPine 5 MG TABLET PO SCH (08:14)
[2020-04-01] MEDS: predniSONE 10 MG TABLET PO SCH ×2 (08:14→15:58)
[2020-04-01] MEDS: Mirtazapine 15 MG TABLET PO SCH (19:49)
[2020-04-01] MEDS: Sennosides/Docusate Sodium TABLET PO SCH (19:50)
[2020-04-02 04:47] LABS: Immature Granulocytes % 0.8 % (0-4); Lymphocytes # 0.2 K/mcL (0.6-4.6); Lymphocytes % 3.4 %; Mean Corpuscular Hemoglobin 24.9 pg (28.0-33.3); Mean Corpuscular Volume 82.9 fL (83.0-100.0); Mean Platelet Volume 8.5 fL (9.4-12.4); Monocytes # 0.2 K/mcL (0.0-1.3); Monocytes % 3.7 %; Neutrophils # 5.9 K/mcL (1.6-8.9); Platelet Count 131 K/mcL (140-400); Red Blood Count 3.62 M/mcL (4.19-5.50); Red Cell Distribution Width 21.2 % (11.5-14.5); Segmented Neutrophils % 92.1 %; White Blood Count 6.4 K/mcL (4.3-11.1)
[2020-04-02 05:05] LABS: BUN/Creatinine Ratio 24 (6-26); Blood Urea Nitrogen 29 mg/dL (8-23); Calcium 9.2 mg/dL (8.6-10.3); Carbon Dioxide 29 mEq/L (23-29); Chloride 100 mEq/L (98-107); Glucose 110 mg/dL (70-105); Osmolality,Calculated 290 (280-300); Potassium 4.5 mEq/L (3.5-5.1); Sodium 137 mEq/L (136-145); eGFR For African Americans > 60 (> 60); eGFR For Non-African Americans 58 (> 60)
[2020-04-02] MEDS: Ipratropium/Albuterol Neb 3 ML IH PRN (07:21)
[2020-04-02] MEDS: Budesonide/Formoterol 160/4.5 1 PUFF INH IH SCH (07:23)
[2020-04-02] MEDS: Tiotropium 18 MCG inhalation IH SCH (07:23)
[2020-04-02 07:45] VITALS: BP 159/90
[2020-04-02] MEDS: Doxycycline 100 MG CAPSULE PO SCH (09:01)
[2020-04-02] MEDS: predniSONE 10 MG TABLET PO SCH (09:01)
[2020-04-02] MEDS: hydrOXYzine pamoate 25 MG CAPSULE PO SCH (09:01)
[2020-04-02] MEDS: Metoprolol XL (24 HR) Succ 50 MG TAB.ER.24H PO SCH (09:02)
[2020-04-02] MEDS: amLODIPine 5 MG TABLET PO SCH (09:02)
[2020-04-02] MEDS: *HR* Rivaroxaban 10 MG TABLET PO SCH (09:02)
== END 2020-04-02 14:11 | disposition home health service (06) | DRG 945 ==
LOC: INPGRE 03-20 17:30
PROVIDERS: ADMIT Family Medicine; ATTEND Family Medicine

== ENCOUNTER 2020-05-25 16:24 | Observation (INO) ==
[2020-05-25] MEDS ORDERED: GI Cocktail 40 ML EACH PO ONE (16:47)
[2020-05-25] MEDS ORDERED: Nitroglycerin 1 INCH/GM PACKET TP ONE (16:47)
[2020-05-25] MEDS ORDERED: Pantoprazole 40 MG VIAL IVP ONE (16:47)
[2020-05-25 16:58] LABS: Basophils % 0.5 %; Eosinophils # 0.2 K/mcL (0.0-0.6); Eosinophils % 2.9 %; Hematocrit 42.2 % (37.5-50.1); Hemoglobin 12.6 g/dL (12.9-16.9); Immature Granulocytes % 1.1 % (0-4); Lymphocytes # 0.8 K/mcL (0.6-4.6); Lymphocytes % 9.1 %; Mean Corpuscular HGB Conc 29.9 g/dL (31.6-35.5); Mean Corpuscular Hemoglobin 25.9 pg (28.0-33.3); Mean Corpuscular Volume 86.7 fL (83.0-100.0); Mean Platelet Volume 8.5 fL (9.4-12.4); Monocytes # 0.6 K/mcL (0.0-1.3); Neutrophils # 6.6 K/mcL (1.6-8.9); Platelet Count 224 K/mcL (140-400); Red Blood Count 4.87 M/mcL (4.19-5.50); Red Cell Distribution Width 17.9 % (11.5-14.5); Segmented Neutrophils % 79.4 %; White Blood Count 8.3 K/mcL (4.3-11.1)
[2020-05-25 17:04] LABS: INR 1.8; Prothrombin Time 20.5 Seconds (9.4-12.1)
[2020-05-25 17:07] LABS: Activated Partial Thrombo Time 37.8 Seconds (26.0-36.0)
[2020-05-25 17:07] LABS: VBG HCO3 35 mEq/L (21-27); VBG PCO2 75 mmHg (41-51); VBG PH 7.28 pH Units (7.32-7.42); VBG PO2 34 mmHg (25-50)
[2020-05-25 17:16] LABS: Calcium 9.3 mg/dL (8.6-10.3); Potassium 4.1 mEq/L (3.5-5.1)
[2020-05-25] MEDS ORDERED: Aspirin 81 MG TAB.CHEW PO ONE (17:17)
[2020-05-25 17:20] LABS: Troponin I 0.04 ng/mL (< 0.04)
[2020-05-25] MEDS ORDERED: methylPREDNISolone 125 MG/2 ML VIAL IVP ONE (18:19)
[2020-05-25] MEDS ORDERED: Azithromycin 500 MG in 0.9 % Sodium Chloride 250 ML IVPB ONE (19:27)
[2020-05-25 19:29] LABS: ABG Base Excess 4 mEq/L (-2 to 3); ABG HCO3 31 mEq/L (21-27); ABG Oxygen Saturation 99 % (95-98); ABG PCO2 53 mmHg (35-45); ABG PH 7.37 pH Units (7.32-7.45); ABG PO2 146 mmHg (85-104); ABG TCO2 32 mEq/L (20-26)
[2020-05-25] MEDS ORDERED: Naloxone 0.4 MG/ML INJ IVP PRN (19:57)
[2020-05-25] MEDS ORDERED: hydrOXYzine pamoate 25 MG CAPSULE PO PRN ×2 (20:34)
[2020-05-25] MEDS ORDERED: Acetaminophen 325 MG TABLET PO PRN (20:34)
[2020-05-25] MEDS ORDERED: Azithromycin 250 MG TABLET PO SCH (21:00)
[2020-05-25] MEDS: Budesonide/Formoterol 160/4.5 1 PUFF INH IH SCH (21:49)
[2020-05-25] MEDS: Mirtazapine 15 MG TABLET PO SCH (22:00)
[2020-05-26 04:29] LABS: ABG Base Excess 1 mEq/L (-2 to 3); ABG HCO3 27 mEq/L (21-27); ABG Oxygen Saturation 96 % (95-98); ABG PCO2 49 mmHg (35-45); ABG PH 7.36 pH Units (7.32-7.45); ABG PO2 85 mmHg (85-104); ABG TCO2 29 mEq/L (20-26)
[2020-05-26] MEDS ORDERED: methylPREDNISolone 125 MG/2 ML VIAL IVP SCH (06:00)
[2020-05-26] MEDS: Furosemide 40 MG TABLET PO SCH (08:56)
[2020-05-26] MEDS: Aspirin Enteric Coated 81 MG Tablet PO SCH (08:56)
[2020-05-26] MEDS: *HR* Rivaroxaban 10 MG TABLET PO SCH (08:56)
[2020-05-26] MEDS: amLODIPine 5 MG TABLET PO SCH (08:56)
[2020-05-26] MEDS: lisinopriL 5 MG TABLET PO SCH (08:57)
[2020-05-26] MEDS: Isosorbide MONOnitrate (24 HR) 30 MG TAB.ER.24H PO SCH (08:57)
[2020-05-26] MEDS: Azithromycin 250 MG TABLET PO SCH (08:57)
[2020-05-26] MEDS: Metoprolol XL (24 HR) Succ 50 MG TAB.ER.24H PO SCH (08:57)
[2020-05-26] MEDS: methylPREDNISolone 125 MG/2 ML VIAL IVP SCH ×3 (08:57→21:51)
[2020-05-26] MEDS ORDERED: TIOTROPIUM IH SCH (09:00)
[2020-05-26] MEDS: Budesonide/Formoterol 160/4.5 1 PUFF INH IH SCH ×2 (10:07→21:02)
[2020-05-26] MEDS: TIOTROPIUM IH SCH (17:14)
[2020-05-26] MEDS: Sennosides/Docusate Sodium TABLET PO PRN (21:48)
[2020-05-26] MEDS: Mirtazapine 15 MG TABLET PO SCH (21:49)
[2020-05-27] MEDS: Budesonide/Formoterol 160/4.5 1 PUFF INH IH SCH ×2 (09:12→19:59)
[2020-05-27] MEDS: TIOTROPIUM IH SCH (09:12)
[2020-05-27] MEDS: amLODIPine 5 MG TABLET PO SCH (09:59)
[2020-05-27] MEDS: *HR* Rivaroxaban 10 MG TABLET PO SCH (10:00)
[2020-05-27] MEDS: lisinopriL 5 MG TABLET PO SCH (10:00)
[2020-05-27] MEDS: Azithromycin 250 MG TABLET PO SCH (10:00)
[2020-05-27] MEDS: Furosemide 40 MG TABLET PO SCH (10:00)
[2020-05-27] MEDS: Isosorbide MONOnitrate (24 HR) 30 MG TAB.ER.24H PO SCH (10:00)
[2020-05-27] MEDS: Aspirin Enteric Coated 81 MG Tablet PO SCH (10:00)
[2020-05-27] MEDS: Metoprolol XL (24 HR) Succ 50 MG TAB.ER.24H PO SCH (10:00)
[2020-05-27] MEDS: methylPREDNISolone 125 MG/2 ML VIAL IVP SCH ×3 (10:01→20:58)
[2020-05-27 12:20] LABS: VBG HCO3 32 mEq/L (21-27); VBG PCO2 57 mmHg (41-51); VBG PH 7.36 pH Units (7.32-7.42); VBG PO2 35 mmHg (25-50)
[2020-05-27] MEDS: Mirtazapine 15 MG TABLET PO SCH (20:57)
[2020-05-27] MEDS: Sennosides/Docusate Sodium TABLET PO PRN (21:01)
[2020-05-28 06:06] LABS: Hematocrit 35.9 % (37.5-50.1); Hemoglobin 10.9 g/dL (12.9-16.9); Mean Corpuscular HGB Conc 30.4 g/dL (31.6-35.5); Mean Corpuscular Hemoglobin 25.7 pg (28.0-33.3); Mean Corpuscular Volume 84.7 fL (83.0-100.0); Mean Platelet Volume 8.7 fL (9.4-12.4); Platelet Count 158 K/mcL (140-400); Red Blood Count 4.24 M/mcL (4.19-5.50); Red Cell Distribution Width 17.4 % (11.5-14.5); White Blood Count 6.5 K/mcL (4.3-11.1)
[2020-05-28] MEDS: TIOTROPIUM IH SCH (08:02)
[2020-05-28] MEDS: Budesonide/Formoterol 160/4.5 1 PUFF INH IH SCH (08:05)
[2020-05-28] MEDS: Aspirin Enteric Coated 81 MG Tablet PO SCH (09:08)
[2020-05-28] MEDS: *HR* Rivaroxaban 10 MG TABLET PO SCH (09:08)
[2020-05-28] MEDS: Azithromycin 250 MG TABLET PO SCH (09:08)
[2020-05-28] MEDS: lisinopriL 5 MG TABLET PO SCH (09:08)
[2020-05-28] MEDS: Isosorbide MONOnitrate (24 HR) 30 MG TAB.ER.24H PO SCH (09:09)
[2020-05-28] MEDS: Metoprolol XL (24 HR) Succ 50 MG TAB.ER.24H PO SCH (09:09)
[2020-05-28] MEDS: Furosemide 40 MG TABLET PO SCH (09:09)
[2020-05-28] MEDS: amLODIPine 5 MG TABLET PO SCH (09:09)
[2020-05-28] MEDS: methylPREDNISolone 125 MG/2 ML VIAL IVP SCH (09:11)
[2020-05-28 13:24] VITALS: BP 131/65
[2020-05-28 14:32] LABS: Alanine Aminotransferase 17 Units/L (7-52); Albumin 3.6 g/dL (3.5-5.7); Albumin/Globulin Ratio 1.4 (1.1-2.2); Alkaline Phosphatase 64 Units/L (34-104); Aspartate Amino Transferase 17 Units/L (13-39); BUN/Creatinine Ratio 28 (6-26); Bilirubin,Total 0.4 mg/dL (0.3-1.0); Blood Urea Nitrogen 37 mg/dL (8-23); Carbon Dioxide 29 mEq/L (23-29); Chloride 98 mEq/L (98-107); Globulin 2.6 g/dL (2.4-3.5); Glucose 99 mg/dL (70-105); Magnesium 2.4 mg/dL (1.6-2.6); Osmolality,Calculated 293 (280-300); Potassium 4.1 mEq/L (3.5-5.1); Sodium 137 mEq/L (136-145); Total Protein 6.2 g/dL (6.4-8.9); eGFR For African Americans > 60 (> 60); eGFR For Non-African Americans 51 (> 60)
== END 2020-05-28 14:09 | disposition home or self-care (01) ==
LOC: INPGRE 16:24 → EMEROOGRE 16:24 → SUATTDRO 20:10 → INPGRE 20:44
PROVIDERS: ADMIT Student in an Organized Health Care Education/Training Program; ATTEND Family Medicine

== ENCOUNTER 2021-08-01 19:01 | Inpatient (IN) ==
[2021-08-01] MEDS ORDERED: Ondansetron 4 MG/2 ML VIAL IVP ONE ×2 (19:12→20:42)
[2021-08-01] MEDS ORDERED: 0.9 % Sodium Chloride 1,000 ML IVC ONE ×2 (19:12→20:36)
[2021-08-01] MEDS ORDERED: Morphine Sulfate 2 MG/ML SYRINGE IVP ONE (19:12)
[2021-08-01 19:46] LABS: Basophils # 0.1 K/mcL (0.0-0.2); Basophils % 0.6 %; Eosinophils # 0.3 K/mcL (0.0-0.6); Eosinophils % 2.4 %; Hematocrit 44.7 % (37.5-50.1); Hemoglobin 14.6 g/dL (12.9-16.9); Immature Granulocytes % 0.5 % (0-4); Lymphocytes # 1.6 K/mcL (0.6-4.6); Lymphocytes % 11.6 %; Mean Corpuscular HGB Conc 32.7 g/dL (31.6-35.5); Mean Corpuscular Hemoglobin 29.9 pg (28.0-33.3); Mean Corpuscular Volume 91.4 fL (83.0-100.0); Monocytes # 0.8 K/mcL (0.0-1.3); Monocytes % 5.4 %; Platelet Count 216 K/mcL (140-400); Red Blood Count 4.89 M/mcL (4.19-5.50); Segmented Neutrophils % 79.5 %; White Blood Count 13.8 K/mcL (4.3-11.1)
[2021-08-01 20:13] LABS: Alanine Aminotransferase 15 Units/L (7-52); Albumin 4.8 g/dL (3.5-5.7); Albumin/Globulin Ratio 1.5 (1.1-2.2); Alkaline Phosphatase 107 Units/L (34-104); Aspartate Amino Transferase 32 Units/L (13-39); BUN/Creatinine Ratio 13 (6-26); Bilirubin,Direct 0.2 mg/dL (0.0-0.2); Bilirubin,Indirect 0.4 mg/dL (0.0-1.0); Bilirubin,Total 0.6 mg/dL (0.3-1.0); Blood Urea Nitrogen 24 mg/dL (8-23); Carbon Dioxide 33 mEq/L (23-29); Chloride 93 mEq/L (98-107); Globulin 3.3 g/dL (2.4-3.5); Glucose 119 mg/dL (70-105); Lipase > 1800 Units/L (11-82); Osmolality,Calculated 287 (280-300); Potassium 4.3 mEq/L (3.5-5.1); Sodium 136 mEq/L (136-145); Total Protein 8.1 g/dL (6.4-8.9); eGFR For African Americans 44 (> 60); eGFR For Non-African Americans 36 (> 60)
[2021-08-01] MEDS ORDERED: *HR* HYDROmorphone (PF) 1 MG/ML SYRINGE IVP ONE (20:36)
[2021-08-01] MEDS ORDERED: Ondansetron ODT 4 MG TAB.RAPDIS SL ONE (20:37)
[2021-08-01] MEDS ORDERED: Melatonin 3 MG TABLET PO PRN (21:31)
[2021-08-01] MEDS ORDERED: *HR* Promethazine 25 MG/ML VIAL IM PRN (21:31)
[2021-08-01] MEDS ORDERED: Naloxone 0.4 MG/ML INJ IVP PRN (21:31)
[2021-08-01] MEDS ORDERED: Ringers Solution, Lactated 500 ML IVC ONE (21:45)
[2021-08-01] MEDS ORDERED: Mirtazapine 15 MG TABLET PO SCH (23:00)
[2021-08-01] MEDS: Ringers Solution, Lactated 1,000 ML IVC SCH (23:10)
[2021-08-02] MEDS: Ringers Solution, Lactated 1,000 ML IVC SCH (04:11)
[2021-08-02 04:59] LABS: Basophils % 0.2 %; Eosinophils # 0.1 K/mcL (0.0-0.6); Eosinophils % 0.9 %; Hematocrit 42.8 % (37.5-50.1); Hemoglobin 13.9 g/dL (12.9-16.9); Immature Granulocytes % 0.6 % (0-4); Lymphocytes # 0.8 K/mcL (0.6-4.6); Lymphocytes % 8.4 %; Mean Corpuscular HGB Conc 32.5 g/dL (31.6-35.5); Mean Corpuscular Hemoglobin 29.8 pg (28.0-33.3); Mean Corpuscular Volume 91.8 fL (83.0-100.0); Mean Platelet Volume 9.2 fL (9.4-12.4); Monocytes # 0.6 K/mcL (0.0-1.3); Neutrophils # 7.5 K/mcL (1.6-8.9); Platelet Count 141 K/mcL (140-400); Red Blood Count 4.66 M/mcL (4.19-5.50); Red Cell Distribution Width 13.1 % (11.5-14.5); Segmented Neutrophils % 82.9 %; White Blood Count 9.1 K/mcL (4.3-11.1)
[2021-08-02 05:10] LABS: Calcium 8.7 mg/dL (8.6-10.3); Potassium 5.2 mEq/L (3.5-5.1)
[2021-08-02] MEDS: Ondansetron 4 MG/2 ML VIAL IVP PRN ×2 (08:39→16:39)
[2021-08-02] MEDS ORDERED: Aspirin Enteric Coated 81 MG Tablet PO SCH (09:00)
[2021-08-02] MEDS ORDERED: *HR* Rivaroxaban 10 MG TABLET PO SCH (09:00)
[2021-08-02] MEDS ORDERED: Tiotropium 10 INH DOSE IH SCH (09:00)
[2021-08-02] MEDS ORDERED: Budesonide/Formoterol 160/4.5 1 PUFF INH IH SCH (10:00)
[2021-08-02] MEDS ORDERED: 0.9 % Sodium Chloride 1,000 ML IVC SCH (12:30)
[2021-08-02 12:50] LABS: Bilirubin,Urine Small (Negative); Blood,Urine Negative (Negative); Clarity,Urine Clear (Clear); Color,Urine Yellow (Yellow); Glucose,Urine (UA) Normal (Normal); Ketones,Urine Negative (Negative); Leukocyte Esterase,Urine Negative (Negative); Nitrite,Urine Negative (Negative); PH,Urine 5.5 pH Units (5.0-8.0); Protein,Urine Negative (Neg-Trace); Urobilinogen,Urine Normal (Normal)
[2021-08-02] MEDS ORDERED: Morphine Sulfate 2 MG/ML SYRINGE IVP PRN (12:50)
[2021-08-02 14:35] LABS: Amylase 978 Units/L (29-103); Lipase > 1800 Units/L (11-82)
[2021-08-02] MEDS ORDERED: ERTAPENEM IVP SCH (16:00)
[2021-08-02] MEDS ORDERED: SODIUM CHLORIDE 0.9% IVP SCH (16:00)
[2021-08-02 18:02] VITALS: BP 103/65; PULSE 68; RESP 16; TEMP 98.1; O2SAT 96
[2021-08-03] MEDS ORDERED: *HR* Rivaroxaban 15 MG TABLET PO SCH (09:00)
== END 2021-08-02 18:15 | disposition short-term general hospital (02) ==
LOC: EMEROOGRE 19:01 → INPGRE 22:16
PROVIDERS: ADMIT Internal Medicine; ATTEND Internal Medicine